=== PATIENT | male | born 1950 | race African-American/Black ===

== ENCOUNTER 2016-07-01 20:41 | Inpatient (IN) | payer MEDICARE, OTHER ==
[~2016-07-01] VITALS: Ht 198.1 cm; Wt 124.4 kg
[~2016-07-01 20:41] MED LIST: AMIO200 PO; DILT30 PO; FERR300S PO; FURO20 PO; HYDR-3535 PO; LABE200 PO; LEVEMIR SQ; METHO500 PO; NOVOLOGSS SQ; OXYB5 PO; PLAV75TA PO; POLY1.4%O EACH EYE; PROT40TA PO; WARF5 PO; ZOCO40TA PO
[2016-07-01 20:46] VITALS: BP 134/85; PULSE 93; RESP 16; TEMP 97.9; O2SAT 97
[2016-07-01] MEDS ORDERED: SODIUM CHLOR 0.9% 1000 ML INJ 1,000 ML IV SCH (21:00)
[2016-07-01 21:01] LABS: MEAN CORPUSCULAR HGB CONC 29.1 % (32.0-36.0)
[2016-07-01] MEDS ORDERED: ONDANSETRON HCL 4 MG/2 ML VIAL IV PUSH ONE (21:15)
[2016-07-01] MEDS ORDERED: PLAV75TA29 PO (21:31)
[2016-07-01] MEDS ORDERED: FURO1TAB60 PO (21:31)
[2016-07-01] MEDS ORDERED: GABA600T PO (21:31)
[2016-07-01] MEDS ORDERED: FURO1TAB62 PO (21:31)
[2016-07-01] MEDS ORDERED: WARF-21 PO (21:31)
[2016-07-01] MEDS ORDERED: ZOCO40TA PO (21:31)
[2016-07-01] MEDS ORDERED: CLON0.3T PO (21:31)
[2016-07-01] MEDS ORDERED: SIMVPOW (21:31)
[2016-07-01] MEDS ORDERED: TEMA30CA PO (21:31)
[2016-07-01] MEDS ORDERED: LEVEMIR SQ (21:34)
[2016-07-01] MEDS ORDERED: NOVOLOGP2 SQ (21:34)
[2016-07-01 21:39] LABS: APTT (PATIENT) 40.8 SEC (24.3-30.1); INTERNATIONAL NORMALIZED RATIO 4.2 RATIO
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
[2016-07-01 21:48] LABS: ANION GAP 10 MEQ/L (5-15); AST (GOT) 11 U/L (15-37); BICARBONATE 26.5 MEQ/L (21.0-32.0); BLOOD UREA NITROGEN 30 MG/DL (7-18); CHLORIDE 103 MEQ/L (98-107); GLOMERULAR FILTRATION RATE 44 ML/MIN (>89); POTASSIUM 3.8 MEQ/L (3.5-5.1); SODIUM (NA) 139 MEQ/L (136-145)
[2016-07-01 21:51] LABS: ALKALINE PHOSPHATASE 84 U/L (45-117); ALT (GPT) 17 U/L (12-78); TOTAL BILIRUBIN ADULT 0.5 MG/DL (0.2-1.0)
[2016-07-01] MEDS ORDERED: IOHEXOL 350 MG/ML 10 ML VIAL (for RAD DIAG) IV ONE (22:08)
[2016-07-01 22:24] LABS: MEAN CELL VOLUME 65.6 FL (80.0-100.0); MEAN CORPUSCULAR HEMOGLOBIN 19.1 PG (27.0-34.0); PLATELET COUNT 128 TH/MM3 (150-450); RED BLOOD COUNT 2.25 MIL/MM3 (4.50-5.90); RED CELL DISTRIBUTION WIDTH 25.5 % (11.6-17.2); WHITE BLOOD COUNT 7.3 TH/MM3 (4.0-11.0)
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
[2016-07-01 22:29] LABS: HEMATOCRIT 14.8 % (39.0-51.0); HEMO FLAGS AUTO DIFF
[2016-07-01] MEDS ORDERED: SODIUM CHLOR 0.9% 250 ML INJ 250 ML IV ONE (22:30)
[2016-07-01] MEDS ORDERED: PHYTONADIONE INJ 10 MG in DEXTROSE 5% IN WATER INJ 50 ML IV ONE ×2 (22:45)
[2016-07-01] MEDS ORDERED: TEMAZEPAM 15 MG CAP PO PRN (23:00)
[2016-07-01] MEDS ORDERED: NALOXONE HCL 0.4 MG/ML AMP IV PRN (23:00)
[2016-07-01] MEDS ORDERED: SODIUM CHLORIDE 0.9% FLUSH 5 ML FLUSH FLUSH PRN (23:00)
[2016-07-01] MEDS ORDERED: ONDANSETRON HCL 4 MG/2 ML VIAL IVP PRN (23:00)
[2016-07-01] MEDS: SODIUM CHLOR 0.45% 1000 ML INJ 1,000 ML IV SCH (23:19)
[2016-07-01] MEDS: PANTOPRAZOLE SODIUM 40 MG VIAL IV PUSH SCH (23:20)
[2016-07-01 23:37] LABS: BACTERIA, URINE RARE /hpf; BLOOD, URINE NEG (NEG); COMMENT (UR) CULT NOT INDICATED; CULTURE IF INDICATED CULT NOT INDICATED; GLUCOSE,URINE NEG (NEG); HYALINE CAST, URINE 1 /lpf (RARE); KETONE, URINE NEG (NEG); MUCUS URINE FEW /lpf (OCC); NITRITE,URINE NEG (NEG); PH, URINE 5.5 (5.0-8.5); URINE COLOR LIGHT-YELLOW (YELLW/STRAW)
[2016-07-01 23:38] VITALS: BP 142/80; PULSE 89; RESP 18; O2SAT 95
[2016-07-01 23:38] LABS: ACANTHOCYTES OCC (NORMAL); EOSINOPHILS 3 % (0-4); KERATOCYTES OCC (NORMAL); NEUTROPHIL # MANUAL DIFF 5.9 TH/MM3 (1.8-7.7); OVALOCYTES 1+ (NORMAL); PLATELET ESTIMATE SMEAR LOW (NORMAL); PLATELET MORPHOLOGY NORMAL (NORMAL); POLYS (SEG NEUTROPHILS) 81 % (16-70); SCAN/DIFF FINAL DIFF MANUAL; WBC DIFF SAMPLE 100
[2016-07-02] VITALS (25 sets, daily range): BP systolic 112–181; BP diastolic 60–94; PULSE 72–92; RESP 18–20; TEMP 98–98.5; O2SAT 94–100
[2016-07-02] MEDS ORDERED: cloNIDine HCL 0.3 MG TAB PO SCH (06:00)
[2016-07-02 06:31] LABS: BASOPHIL # 0.1 TH/MM3 (0-0.2); BASOPHIL % 0.7 % (0.0-2.0); EOSINOPHIL # 0.1 TH/MM3 (0-0.4); EOSINOPHIL % 0.9 % (0.0-4.0); LYMPH % 17.4 % (9.0-44.0); LYMPHOCYTE # 1.5 TH/MM3 (1.0-4.8); MEAN CORPUSCULAR HEMOGLOBIN 21.7 PG (27.0-34.0); MEAN CORPUSCULAR HGB CONC 31.4 % (32.0-36.0); MONO % 10.4 % (0.0-8.0); NEUT % 70.6 % (16.0-70.0); PLATELET COUNT 112 TH/MM3 (150-450); RED BLOOD COUNT 2.59 MIL/MM3 (4.50-5.90); RED CELL DISTRIBUTION WIDTH 26.1 % (11.6-17.2); WHITE BLOOD COUNT 8.5 TH/MM3 (4.0-11.0)
[2016-07-02 06:34] LABS: HEMO FLAGS AUTO DIFF
[2016-07-02 06:36] LABS: HEMATOCRIT 17.9 % (39.0-51.0)
[2016-07-02 06:45] LABS: INTERNATIONAL NORMALIZED RATIO 1.5 RATIO; PROTHROMBIN TIME - PATIENT 16.7 SEC (9.8-11.6)
[2016-07-02 06:58] LABS: BICARBONATE 28.1 MEQ/L (21.0-32.0); MAGNESIUM 2.1 MG/DL (1.5-2.5); POTASSIUM 3.8 MEQ/L (3.5-5.1)
[2016-07-02] MEDS ORDERED: SODIUM CHLOR 0.9% 250 ML INJ 250 ML IV ONE (07:15)
[2016-07-02 08:15] LABS: ACANTHOCYTES OCC (NORMAL)
[2016-07-02 08:16] LABS: OVALOCYTES 1+ (NORMAL)
[2016-07-02 08:17] LABS: PLATELET ESTIMATE SMEAR LOW (NORMAL); PLATELET MORPHOLOGY ENLARGED (NORMAL); SCAN/DIFF AUTO DIFF CONFIRMED
[2016-07-02] MEDS ORDERED: GABAPENTIN 300 MG CAP PO SCH (09:00)
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
[2016-07-02] MEDS: PANTOPRAZOLE SODIUM 40 MG VIAL IV PUSH SCH ×2 (09:29→21:40)
[2016-07-02] MEDS: cloNIDine HCL 0.2 MG TAB PO SCH ×3 (09:29→18:15)
[2016-07-02] MEDS: PRAVASTATIN SOD 80 MG TAB PO SCH (09:30)
[2016-07-02] MEDS: GABAPENTIN 300 MG CAP PO SCH ×3 (09:30→18:15)
[2016-07-02] MEDS: SODIUM CHLORIDE 0.9% FLUSH 5 ML FLUSH FLUSH SCH ×2 (09:58→21:39)
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
[2016-07-02] MEDS: SODIUM CHLOR 0.45% 1000 ML INJ 1,000 ML IV SCH ×2 (11:35→21:40)
[2016-07-03] VITALS (7 sets, daily range): BP systolic 117–155; BP diastolic 65–96; PULSE 78–88; RESP 16–22; TEMP 97.3–98.8; O2SAT 88–98
[2016-07-03] MEDS: PANTOPRAZOLE SODIUM 40 MG VIAL IV PUSH SCH ×2 (07:29→21:20)
[2016-07-03] MEDS: GABAPENTIN 300 MG CAP PO SCH ×3 (07:29→17:26)
[2016-07-03] MEDS: SODIUM CHLORIDE 0.9% FLUSH 5 ML FLUSH FLUSH SCH ×2 (07:30→21:21)
[2016-07-03] MEDS: PRAVASTATIN SOD 80 MG TAB PO SCH (07:30)
[2016-07-03] MEDS: cloNIDine HCL 0.2 MG TAB PO SCH ×3 (07:30→17:28)
[2016-07-03] MEDS: SODIUM CHLOR 0.45% 1000 ML INJ 1,000 ML IV SCH (09:37)
--- NOTE | 2016-07-03 13:54 | HHI.GIFU ---
Subjective Remarks Patient is resting in bed, doing good, no pain, no signs of bleeding, inquiring about food. (Claudia Denis) Objective Vitals I&O Vital Signs Date Time Temp Pulse Resp B/P Pulse Ox O2 Delivery O2 Flow Rate FiO2 07/03/16 11:50 97.6 80 20 126/83 96 07/03/16 07:40 98.1 85 16 129/69 88 07/03/16 04:00 97.5 78 17 117/65 94 07/03/16 00:00 97.9 79 17 127/83 96 07/02/16 21:45 76 07/02/16 21:45 98.2 77 18 112/70 100 07/02/16 18:16 81 20 155/94 94 07/02/16 14:11 87 20 142/88 I/O 07/02/16 07/02/16 07/02/16 07/03/16 07/03/16 07/03/16 07:00 15:00 23:00 07:00 15:00 23:00 Intake Total 1425 ml 240 ml 240 ml Output Total 850 ml Balance 1425 ml 240 ml -610 ml Intake Oral 240 ml 240 ml Blood Product 725 ml Packed Cells 700 ml Output Urine Total 850 ml # Voids 1 Laboratory Laboratory Tests Test 07/03/16 04:58 Tumor Marker Alpha Fetoprotein 2.9 Imaging Last Impressions Abdomen/Pelvis CT 07/01/16 0000 Signed Impressions: Service Date/Time: June 22:00 - CONCLUSION: 1. Low density mass in the supriya hepatis, not new but is slightly larger. It has a very benign appearance. Potentially this is a duodenal diverticulum. Pancreatic pseudocyst possible but considered less likely. An exophytic cyst arising from the liver would be possible. 2. Cholelithiasis without evidence of acute complication. 3. 4.8 cm low-density lesion of the spleen is stable, remains nonspecific but is most likely benign. 4. No obstruction or acute inflammatory changes are demonstrated. 5. Mild wall thickening of the urinary bladder, correlate with possible mild acute cystitis. Giovanny Echavarria MD Physical Exam HEENT: normocephalic; atraumatic; no jaundice. Throat is clear. NECK: Neck is supple, no JVD, no lymphadenopathy. CHEST: Chest is clear to auscultation and percussion. CARDIAC: Regular rate and rhythm with no murmur gallop or rubs. ABDOMEN: Soft, nondistended, obese, nontender; no hepatosplenomegaly; bowel sounds are present in all four quadrants. EXTREMITIES: No clubbing, cyanosis, or edema. SKIN: Normal; no rash; no jaundice. FOOT ROENTGENOLOGIST: No focal deficits; alert and oriented times three. (CiraClaudia ASSEMBLY ADJUSTER) Assessment and Plan Plan - Anemia with Hemoccult (+) stool. severe anemia of 4.3, INR of 4.2. He received 4 units of blood and 2 units of FFP, repeat h&h pending INR now is 1.5,. Patient denies any sings of bleeding. Denies hematemesis, abdomen pain, melena or hematochezia. CT on (07/01/16)1. Low density mass in the supriya hepatis, not new but is slightly larger. It has a very benign appearance. Potentially this is a duodenal diverticulum. Pancreatic pseudocyst possible but considered less likely. An exophytic cyst arising from the liver would be possible. 2. Cholelithiasis without evidence of acute complication. 3. 4.8 cm low- density lesion of the spleen is stable, remains nonspecific but is most likely benign. 4. No obstruction or acute inflammatory changes are demonstrated. 5. Mild wall thickening of the urinary bladder, correlate with possible mild acute cystitis. Patient has a known history of anemia, he was seen by our services last year S/P EGD/Colonoscopy (09/23/15)----> [place] Class B esophagitis, retroflexed views revealed retained food in the stomach; colonic mucosa appeared normal, retroflexed views revealed medium internal hemorrhoids. - Nausea and vomiting- LFTs, lipase normal, Ct as above - Supratherapeutic INR of 4.2- corrected s/p 2 FFP, inr 1.5 - Low density mass in the supriya hepatis, not new but is slightly larger. CT above, AFP normal - ?Pancreatic pseudocyst- as imaging above - Possible cystitis- per attending - Cauda equina syndrome with lumbar stenosis and bilateral L4 nerve root impingement per nsx - Acute on chronic kidney disease. - Afib, Bilateral lower extremity DVTs, IVC filter in place. Coumadin, Plavix - HTN, DM per primary. PLAN: - heart healthy diet - EGD/colonoscopy on Tuesday - Obtain consents - Clear liquids tomorrow - Golytely tomorrow - Npo Tuesday mn - Cont. to hold anticoagulation - Consider repeat Ct in 2 weeks for f/u on liver and pancreas findings - Cont. PPI - Monitor HH - Transfuse as needed to keep hgb >7 - Pt seen and examined by Dr. Joya and myself and this note is written on his behalf (Claudia Denis) Physician Comments Seen and examined with ADRIAN, no bleeding reported. Egd/colonoscopy on tuesday. Monitor labs. (Christiane Joya MD) Claudia Denis Jul 03, 2016 13:54 Christiane Joya MD Jul 03, 2016 14:15
[2016-07-03 16:01] LABS: HEMATOCRIT 22.7 % (39.0-51.0); MEAN CELL VOLUME 72.4 FL (80.0-100.0); MEAN CORPUSCULAR HEMOGLOBIN 22.8 PG (27.0-34.0); MEAN CORPUSCULAR HGB CONC 31.5 % (32.0-36.0); PLATELET COUNT 117 TH/MM3 (150-450); RED BLOOD COUNT 3.14 MIL/MM3 (4.50-5.90); RED CELL DISTRIBUTION WIDTH 27.1 % (11.6-17.2); WHITE BLOOD COUNT 8.9 TH/MM3 (4.0-11.0)
[2016-07-03 16:05] LABS: REVIEW FLAG FINAL
[2016-07-03] MEDS: FUROSEMIDE 20 MG TAB PO SCH (17:26)
--- NOTE | 2016-07-03 19:35 | HHI.PR ---
Subjective Remarks 65yr old male seen and examined today. Feels more energetic: s/p transfusion 4units PRBC and 2 units FFP. Denies any CP/SOB/NVD/bleeding. Objective Objective Results - Vital Signs Date Time Temp Pulse Resp B/P Pulse Ox O2 Delivery O2 Flow Rate FiO2 07/03/16 11:50 97.6 80 20 126/83 96 07/03/16 07:40 98.1 85 16 129/69 88 07/03/16 04:00 97.5 78 17 117/65 94 07/03/16 00:00 97.9 79 17 127/83 96 07/02/16 21:45 76 07/02/16 21:45 98.2 77 18 112/70 100 I/O 07/02/16 07/02/16 07/02/16 07/03/16 07/03/16 07/03/16 07:00 15:00 23:00 07:00 15:00 23:00 Intake Total 1425 ml 240 ml 240 ml 778 ml Output Total 850 ml Balance 1425 ml 240 ml -610 ml 778 ml Intake Oral 240 ml 240 ml IV Total 778 ml Blood Product 725 ml Packed Cells 700 ml Output Urine Total 850 ml # Voids 1 Result Diagram: 07/03/16 1542 07/02/16 0618 Other Results Laboratory Tests Test 07/03/16 07/03/16 04:58 15:42 Tumor Marker Alpha Fetoprotein 2.9 White Blood Count 8.9 Red Blood Count 3.14 Hemoglobin 7.2 Hematocrit 22.7 Mean Corpuscular Volume 72.4 Mean Corpuscular Hemoglobin 22.8 Mean Corpuscular Hemoglobin 31.5 Concent Red Cell Distribution Width 27.1 Platelet Count 117 Mean Platelet Volume 8.5 ROS General: No: Fatigue, Weakness, Other HEENT: No: Sore Throat, Dysphagia, Other Cardiac: No: Chest Pain, Edema, Palpitations, Other Pulmonary: No: Cough, SOB, Wheezing, Other GI: No: Abdominal Pain, BM, Diarrhea, N/V, 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 He is alert and awake. HEAD: Normocephalic without any lesion or mass noted. . EYES: Perrla, Normal eye movement, No icterus. OROPHARYNGEAL: Oropharynx without erythema or edema. MOUTH/THROAT: Buccal mucosa is moist. NECK: Supple. CARDIAC: Regular rhythm, regular rate, S1 and S2 are heard. LUNGS: Clear to auscultation bilaterally. ABDOMEN: Soft, nontender, no organomegaly or masses. Bowel sounds are heard in all four quadrants. No rebound. No guarding. EXTREMITIES: No edema. NEUROLOGICAL: No focal deficits. SKIN:Warm and moist PSYCH: Mood and affect appropriate A/P Assessment and Plan Assessment: Severe anemia: +hemoccult, Hb: 4.3 Recent excessive use of NASAIDs supratherapeutic INR: 4.2 Nausea and vomiting- LFTs, lipase normal, Ct as above ?Pancreatic pseudocyst-per CT Possible cystitis Cholelithiasis per CT: asymptomatic. Cauda equina syndrome with lumbar stenosis and bilateral L4 nerve root impingement per nsx Acute on chronic kidney disease. Afib, Bilateral lower extremity DVTs, IVC filter in place. Coumadin, Plavix HTN, DM Plan: S/p transfusion 4 units of PRBC. Transfuse prn to Keep Hb >7.0 S/p transfusion of 2units of FFP. INR: 1.5: monitor. appreciate GI input. Plan for EGD/colonoscopy on tuesday, clear liquid diet tomorrow. NPO from midnight. Reviewed CT abd report. Asymptomatic cholelithiasis. Cont. to hold anticoagulation AFP Consider repeat Ct in 2 weeks for f/u on liver and pancreas findings Cont. PPI Monitor HH Start rocephin 1gm iv daily for cystitis. AM labs, discussed with pt/RN. Manoj Contreras MD Jul 03, 2016 19:35
[2016-07-03] MEDS: TEMAZEPAM 15 MG CAP PO PRN (21:20)
[2016-07-03] MEDS: cefTRIAXone INJ 1,000 MG in SODIUM CHLORIDE 0.9% INJ 100 ML IV SCH (21:20)
[2016-07-04 04:20] VITALS: BP 140/79; PULSE 85; RESP 20; TEMP 97; O2SAT 100
[2016-07-04 06:30] LABS: AUTOMATED NEUTROPHIL # 7.5 TH/MM3 (1.8-7.7); BASOPHIL # 0.1 TH/MM3 (0-0.2); BASOPHIL % 1.2 % (0.0-2.0); EOSINOPHIL # 0.3 TH/MM3 (0-0.4); EOSINOPHIL % 2.8 % (0.0-4.0); HEMATOCRIT 23.2 % (39.0-51.0); LYMPH % 9.8 % (9.0-44.0); MEAN CORPUSCULAR HGB CONC 31.5 % (32.0-36.0); MONO % 11.9 % (0.0-8.0); NEUT % 74.3 % (16.0-70.0); PLATELET COUNT 117 TH/MM3 (150-450); RED BLOOD COUNT 3.18 MIL/MM3 (4.50-5.90); RED CELL DISTRIBUTION WIDTH 27.8 % (11.6-17.2); WHITE BLOOD COUNT 10.1 TH/MM3 (4.0-11.0)
[2016-07-04 06:33] LABS: HEMO FLAGS AUTO DIFF
[2016-07-04 06:43] LABS: BICARBONATE 26.8 MEQ/L (21.0-32.0); POTASSIUM 3.6 MEQ/L (3.5-5.1)
[2016-07-04] MEDS: PRAVASTATIN SOD 80 MG TAB PO SCH (07:29)
[2016-07-04] MEDS: FUROSEMIDE 20 MG TAB PO SCH ×2 (07:29→17:02)
[2016-07-04] MEDS: GABAPENTIN 300 MG CAP PO SCH ×3 (07:29→17:02)
[2016-07-04] MEDS: cloNIDine HCL 0.2 MG TAB PO SCH ×3 (07:29→17:02)
[2016-07-04] MEDS: SODIUM CHLOR 0.45% 1000 ML INJ 1,000 ML IV SCH (07:30)
[2016-07-04] MEDS: SODIUM CHLORIDE 0.9% FLUSH 5 ML FLUSH FLUSH SCH ×2 (07:30→21:00)
[2016-07-04] MEDS: PANTOPRAZOLE SODIUM 40 MG VIAL IV PUSH SCH ×2 (07:30→21:37)
[2016-07-04 08:00] VITALS: BP 127/74; PULSE 83; RESP 18; TEMP 98.3; O2SAT 91
[2016-07-04 09:57] LABS: OVALOCYTES 1+ (NORMAL); POLYCHROMASIA 2.1 % (0.0-1.9)
[2016-07-04 09:58] LABS: PLATELET ESTIMATE SMEAR LOW (NORMAL); PLATELET MORPHOLOGY NORMAL (NORMAL); SCAN/DIFF AUTO DIFF CONFIRMED; TEARDROP RBCS 1+ (NORMAL)
--- NOTE | 2016-07-04 11:38 | HHI.GIFU ---
Subjective Remarks 65 yo male lying in bed in no apparent distress. Denies abdominal pain, no nausea. (Radha Medina) Objective Vitals I&O Vital Signs Date Time Temp Pulse Resp B/P Pulse Ox O2 Delivery O2 Flow Rate FiO2 07/04/16 08:00 98.3 83 18 127/74 91 07/04/16 04:20 97.0 85 20 140/79 100 07/03/16 23:59 98.8 86 22 133/96 96 07/03/16 20:28 98.6 88 20 133/84 98 07/03/16 15:50 97.3 80 20 155/96 96 07/03/16 11:50 97.6 80 20 126/83 96 I/O 07/03/16 07/03/16 07/03/16 07/04/16 07/04/16 07/04/16 07:00 15:00 23:00 07:00 15:00 23:00 Intake Total 240 ml 450 ml 1018 ml 240 ml Output Total 850 ml 1050 ml 600 ml 1300 ml Balance -610 ml -600 ml 418 ml -1060 ml Intake Oral 240 ml 450 ml 240 ml 240 ml IV Total 778 ml Output Urine Total 850 ml 1050 ml 600 ml 1300 ml # Voids 0 # Bowel Movements 0 0 Laboratory Laboratory Tests Test 07/03/16 07/04/16 15:42 05:31 White Blood Count 8.9 10.1 Red Blood Count 3.14 3.18 Hemoglobin 7.2 7.3 Hematocrit 22.7 23.2 Mean Corpuscular Volume 72.4 73.0 Mean Corpuscular Hemoglobin 22.8 23.0 Mean Corpuscular Hemoglobin 31.5 31.5 Concent Red Cell Distribution Width 27.1 27.8 Platelet Count 117 117 Mean Platelet Volume 8.5 8.9 Neutrophils (%) (Auto) 74.3 Lymphocytes (%) (Auto) 9.8 Monocytes (%) (Auto) 11.9 Eosinophils (%) (Auto) 2.8 Basophils (%) (Auto) 1.2 Neutrophils # (Auto) 7.5 Lymphocytes # (Auto) 1.0 Monocytes # (Auto) 1.2 Eosinophils # (Auto) 0.3 Basophils # (Auto) 0.1 CBC Comment AUTO DIFF Differential Comment AUTO DIFF CONFIRMED Platelet Estimate LOW Platelet Morphology Comment NORMAL Polychromasia 2.1 Tear Drop Cells 1+ Ovalocytes 1+ Sodium Level 140 Potassium Level 3.6 Chloride Level 103 Carbon Dioxide Level 26.8 Anion Gap 10 Blood Urea Nitrogen 18 Creatinine 1.46 Estimat Glomerular Filtration 58 Rate Random Glucose 214 Calcium Level 8.5 Imaging Last Impressions Abdomen/Pelvis CT 07/01/16 0000 Signed Impressions: Service Date/Time: June 22:00 - CONCLUSION: 1. Low density mass in the supriya hepatis, not new but is slightly larger. It has a very benign appearance. Potentially this is a duodenal diverticulum. Pancreatic pseudocyst possible but considered less likely. An exophytic cyst arising from the liver would be possible. 2. Cholelithiasis without evidence of acute complication. 3. 4.8 cm low-density lesion of the spleen is stable, remains nonspecific but is most likely benign. 4. No obstruction or acute inflammatory changes are demonstrated. 5. Mild wall thickening of the urinary bladder, correlate with possible mild acute cystitis. Giovanny Echavarria MD Physical Exam HEENT: PERRLA. Normocephalic; atraumatic; no jaundice. NECK: Neck is supple, no JVD, no lymphadenopathy. CHEST: CTA. CARDIAC: RRR with no murmur gallop or rubs. ABDOMEN: Soft, nondistended, obese, nontender; no hepatosplenomegaly; bowel sounds x 4 quadrants. EXTREMITIES: No clubbing, cyanosis, or edema. SKIN: Normal; no rash; no jaundice. MOBILE PRACTICE LEAD: No focal deficits; A&Ox3. (Radha Medina) Assessment and Plan Plan - Anemia with Hemoccult (+) stool. Had severe anemia of 4.3, INR of 4.2. He received 4 units of blood and 2 units of FFP. Today H/H stable, 7.3/23.2. Patient denies any sings of bleeding. Denies hematemesis, abdomen pain, melena or hematochezia. CT on (07/01/16)-->1. Low density mass in the supriya hepatis, not new but is slightly larger. t has a very benign appearance. Potentially this is a duodenal diverticulum. Pancreatic pseudocyst possible but considered less likely. An exophytic cyst arising from the liver would be possible. 2. Cholelithiasis without evidence of acute complication. 3. 4.8 cm low-density lesion of the spleen is stable, remains nonspecific but is most likely benign. 4. No obstruction or acute inflammatory changes are demonstrated. 5. Mild wall thickening of the urinary bladder, correlate with possible mild acute cystitis. Patient has a known history of anemia, he was seen by our services last year S/P EGD/Colonoscopy (09/23/15)----> LA Class B esophagitis, retroflexed views revealed retained food in the stomach; colonic mucosa appeared normal, retroflexed views revealed medium internal hemorrhoids. - Nausea and vomiting- LFTs, lipase normal, CT as above - Supratherapeutic INR of 4.2- corrected s/p 2 FFP, INR 1.5 - Low density mass in the supriya hepatis, not new but is slightly larger. CT above, AFP normal - ?Pancreatic pseudocyst- as imaging above - Possible cystitis- per attending - Cauda equina syndrome with lumbar stenosis and bilateral L4 nerve root impingement per nsx - Acute on chronic kidney disease. - Afib, Bilateral lower extremity DVTs, IVC filter in place. Coumadin, Plavix - HTN, DM per primary. PLAN: - EGD/colonoscopy on Tuesday - Obtain consents - Clear liquids today - Golytely today - NPO today at [place] - Cont. to hold anticoagulation - Consider repeat CT in 2 weeks for f/u on liver and pancreas findings - Cont. PPI - Monitor HH - Transfuse as needed to keep hgb >7 - Further recommendations to follow based on results of above. Pt seen and examined by Dr. Joya and myself and this note is written on his behalf (Radha Medina) Physician Comments Seen and examined with ADRIAN, no active bleeding , hb hovering around 7. EGD/ Colonoscopy tomorrow. (Christiane Joya MD) Radha Medina Jul 04, 2016 11:37 Christiane Joya MD Jul 04, 2016 15:08
--- NOTE | 2016-07-04 11:39 | HHI.PR ---
Subjective Remarks 65yr old male seen and examined today. S/p transfusion 4units PRBC and 2 units FFP. Denies any CP/SOB/NVD/bleeding. Objective Objective Results - Vital Signs Date Time Temp Pulse Resp B/P Pulse Ox O2 Delivery O2 Flow Rate FiO2 07/04/16 08:00 98.3 83 18 127/74 91 07/04/16 04:20 97.0 85 20 140/79 100 07/03/16 23:59 98.8 86 22 133/96 96 07/03/16 20:28 98.6 88 20 133/84 98 07/03/16 15:50 97.3 80 20 155/96 96 07/03/16 11:50 97.6 80 20 126/83 96 I/O 07/03/16 07/03/16 07/03/16 07/04/16 07/04/16 07/04/16 07:00 15:00 23:00 07:00 15:00 23:00 Intake Total 240 ml 450 ml 1018 ml 240 ml Output Total 850 ml 1050 ml 600 ml 1300 ml Balance -610 ml -600 ml 418 ml -1060 ml Intake Oral 240 ml 450 ml 240 ml 240 ml IV Total 778 ml Output Urine Total 850 ml 1050 ml 600 ml 1300 ml # Voids 0 # Bowel Movements 0 0 Result Diagram: 07/04/1631 07/04/1631 Other Results Laboratory Tests Test 07/03/16 07/04/16 15:42 05:31 White Blood Count 8.9 10.1 Red Blood Count 3.14 3.18 Hemoglobin 7.2 7.3 Hematocrit 22.7 23.2 Mean Corpuscular Volume 72.4 73.0 Mean Corpuscular Hemoglobin 22.8 23.0 Mean Corpuscular Hemoglobin 31.5 31.5 Concent Red Cell Distribution Width 27.1 27.8 Platelet Count 117 117 Mean Platelet Volume 8.5 8.9 Neutrophils (%) (Auto) 74.3 Lymphocytes (%) (Auto) 9.8 Monocytes (%) (Auto) 11.9 Eosinophils (%) (Auto) 2.8 Basophils (%) (Auto) 1.2 Neutrophils # (Auto) 7.5 Lymphocytes # (Auto) 1.0 Monocytes # (Auto) 1.2 Eosinophils # (Auto) 0.3 Basophils # (Auto) 0.1 CBC Comment AUTO DIFF Differential Comment AUTO DIFF CONFIRMED Platelet Estimate LOW Platelet Morphology Comment NORMAL Polychromasia 2.1 Tear Drop Cells 1+ Ovalocytes 1+ Sodium Level 140 Potassium Level 3.6 Chloride Level 103 Carbon Dioxide Level 26.8 Anion Gap 10 Blood Urea Nitrogen 18 Creatinine 1.46 Estimat Glomerular Filtration 58 Rate Random Glucose 214 Calcium Level 8.5 ROS General: No: Fatigue, Weakness, Other HEENT: No: Sore Throat, Dysphagia, Other Cardiac: No: Chest Pain, Edema, Palpitations, Other Pulmonary: No: Cough, SOB, Wheezing, Other GI: No: Abdominal Pain, BM, Diarrhea, N/V, 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 He is alert and awake. HEAD: Normocephalic without any lesion or mass noted. . EYES: Perrla, Normal eye movement, No icterus. OROPHARYNGEAL: Oropharynx without erythema or edema. MOUTH/THROAT: Buccal mucosa is moist. NECK: Supple. CARDIAC: Regular rhythm, regular rate, S1 and S2 are heard. LUNGS: Clear to auscultation bilaterally. ABDOMEN: Soft, nontender, no organomegaly or masses. Bowel sounds are heard in all four quadrants. No rebound. No guarding. EXTREMITIES: No edema. NEUROLOGICAL: No focal deficits. SKIN:Warm and moist PSYCH: Mood and affect appropriate A/P Assessment and Plan Assessment: Severe anemia: +hemoccult, Hb: 4.3 Recent excessive use of NASAIDs supratherapeutic INR: 4.2 Nausea and vomiting- LFTs, lipase normal, Ct as above ?Pancreatic pseudocyst-per CT Possible cystitis Cholelithiasis per CT: asymptomatic. Cauda equina syndrome with lumbar stenosis and bilateral L4 nerve root impingement per nsx Acute on chronic kidney disease. Afib, Bilateral lower extremity DVTs, IVC filter in place. Coumadin, Plavix HTN, DM Plan: S/p transfusion 4 units of PRBC. Transfuse prn to Keep Hb >7.0 S/p transfusion of 2units of FFP. INR: 1.5: monitor. appreciate GI input. Plan for EGD/colonoscopy on tuesday, clear liquid diet tomorrow. NPO from midnight. Reviewed CT abd report. Asymptomatic cholelithiasis. Cont. to hold anticoagulation AFP Consider repeat Ct in 2 weeks for f/u on liver and pancreas findings Cont. PPI Monitor HH Start rocephin 1gm iv daily for cystitis. Accucheks qac/hs Start SSI. Monitor glucose. AM labs, discussed with pt/RN. Manoj Contreras MD Jul 04, 2016 11:39
[2016-07-04] MEDS ORDERED: DEXTROSE 50% IN WATER 50 ML VIAL(D50) IV PUSH PRN (11:45)
[2016-07-04] MEDS ORDERED: GLUCAGON 1 MG/ML VIAL OTHER PRN (11:45)
[2016-07-04 12:00] VITALS: BP 136/90; PULSE 86; RESP 16; TEMP 96.8; O2SAT 97
[2016-07-04 16:00] VITALS: BP 137/73; PULSE 78; RESP 16; TEMP 96.9; O2SAT 92
[2016-07-04] MEDS ORDERED: PEG (High)/E-LYTE SOLN 4000 ML BTL PO ONE (16:00)
[2016-07-04] MEDS: INSULIN NovoLIN REGULAR SUPPLEMENTAL SCALE SQ SCH ×2 (17:09→21:00)
[2016-07-04 20:00] VITALS: BP 138/75; PULSE 81; RESP 17; TEMP 98.1; O2SAT 96
[2016-07-04] MEDS: cefTRIAXone INJ 1,000 MG in SODIUM CHLORIDE 0.9% INJ 100 ML IV SCH (21:36)
[2016-07-04 22:00] VITALS: PULSE 87
[2016-07-05] VITALS: BP 167/94; PULSE 100; RESP 20; TEMP 97.8; O2SAT 95
[2016-07-05 04:00] VITALS: BP 120/67; PULSE 82; RESP 17; TEMP 97.6; O2SAT 95
[2016-07-05] MEDS: INSULIN NovoLIN REGULAR SUPPLEMENTAL SCALE SQ SCH ×4 (05:37→21:52)
[2016-07-05 06:51] LABS: MEAN CELL VOLUME 73.9 FL (80.0-100.0); MEAN CORPUSCULAR HGB CONC 31.1 % (32.0-36.0); PLATELET COUNT 123 TH/MM3 (150-450); RED BLOOD COUNT 3.25 MIL/MM3 (4.50-5.90); RED CELL DISTRIBUTION WIDTH 27.7 % (11.6-17.2); WHITE BLOOD COUNT 9.3 TH/MM3 (4.0-11.0)
[2016-07-05 06:56] LABS: REVIEW FLAG FINAL
[2016-07-05 07:06] LABS: INTERNATIONAL NORMALIZED RATIO 1.1 RATIO; PROTHROMBIN TIME - PATIENT 12.4 SEC (9.8-11.6)
[2016-07-05 08:00] VITALS: BP 159/79; PULSE 82; RESP 20; TEMP 97.4; O2SAT 95
[2016-07-05] MEDS: GABAPENTIN 300 MG CAP PO SCH ×3 (09:00→17:05)
[2016-07-05] MEDS: FUROSEMIDE 20 MG TAB PO SCH ×2 (09:00→17:04)
[2016-07-05] MEDS: cloNIDine HCL 0.2 MG TAB PO SCH ×3 (10:38→17:04)
[2016-07-05] MEDS: PANTOPRAZOLE SODIUM 40 MG VIAL IV PUSH SCH ×2 (10:38→21:52)
[2016-07-05] MEDS: SODIUM CHLORIDE 0.9% FLUSH 5 ML FLUSH FLUSH SCH ×2 (10:39→21:52)
[2016-07-05] MEDS: SODIUM CHLOR 0.45% 1000 ML INJ 1,000 ML IV SCH (10:45)
[2016-07-05 12:00] VITALS: BP 121/75; PULSE 76; RESP 20; TEMP 97.8; O2SAT 95
[2016-07-05] MEDS ORDERED: PROPOFOL 200 MG/20 ML AMP IV ONE (12:22)
--- NOTE | 2016-07-05 12:50 | GIPROC ---
[facility] [address] [facility]. [facility], [address] EGD PROCEDURE REPORT EXAM DATE: 07/05/2016 PATIENT NAME: Hao Castillo MR #: [id number] BIRTHDATE: 1950 ATTENDING: Christiane Joya MD ORDER #: [id number] DOWNSTREAM BIOMANUFACTURING TECHNICIAN: Zuleyka Estrella and Judy Marino STATUS: inpatient INDICATIONS: The patient is a 65 yr old male here for an EGD due to iron deficiency anemia PROCEDURE PERFORMED: EGD, diagnostic MEDICATIONS: None and Per Anesthesia. TOPICAL ANESTHETIC: CONSENT: The patient understands the risks and benefits of the procedure and understands that these risks include, but are not limited to: sedation, allergic reaction, infection, perforation and/or bleeding. Alternative means of evaluation and treatment include, among others: physical exam, x-rays, and/or surgical intervention. The patient elects to proceed with this endoscopic procedure. medical equipment was checked for proper function. Hand hygiene and appropriate measures for infection prevention was taken. After the risks, benefits and alternatives of the procedure were thoroughly explained, Informed consent was verified, confirmed and timeout was successfully executed by the treatment team. The patient was anesthetized with topical anesthesia and the Pentax [id number] endoscope was introduced through the mouth and advanced to the second portion of the duodenum. Retroflexed views revealed no abnormalities The gastroscope was then slowly withdrawn and removed. ESOPHAGUS: There was LA Class A esophagitis noted. STOMACH: There was mild gastritis in the gastric antrum. ADVERSE EVENTS: There were no complications. IMPRESSIONS: 1. There was LA Class A esophagitis noted 2. There was mild gastritis in the gastric antrum 3. Retroflexed views revealed no abnormalities RECOMMENDATIONS: 1. Anti-reflux regimen 2. Continue PPI PATIENT CONDITION: stable DISPOSITION: Inpatient REPEAT EXAM: Return 3 years EGD Christiane Joya MD eSigned: Christiane Joya MD 07/05/2016 12:49 PM cc: [id number]
--- NOTE | 2016-07-05 12:52 | GIPROC ---
[facility] [address] [facility]. [facility], [address] COLONOSCOPY PROCEDURE REPORT EXAM DATE: 07/05/2016 PATIENT NAME: Hao Castillo MR #: [id number] BIRTHDATE: 1950 ENDOSCOPIST: Christiane Joya MD ORDER #: [id number] CENTRAL STERILIZATION TECHNICIAN: Zuleyka Estrella and Judy Marino STATUS: inpatient INDICATIONS: The patient is a 65 yr old male here for a colonoscopy due to iron deficiency anemia PROCEDURE PERFORMED: Colonoscopy, diagnostic MEDICATIONS: None and Per Anesthesia. PREP QUALITY: The [place] Bowel Prep Score was Right colon 1, Mid colon 2, and Left colon 2. Total = 5. PREP TYPE:GoLytely ESTIMATED BLOOD LOSS: None CONSENT: The patient understands the risks and benefits of the procedure and understands that these risks include, but are not limited to: sedation, allergic reaction, infection, perforation and/or bleeding. Alternative means of evaluation and treatment include, among others: physical exam, x-rays, and/or surgical intervention. The patient elects to proceed with this endoscopic procedure. medical equipment was checked for proper function. Hand hygiene and appropriate measures for infection prevention was taken. After the risks, benefits and alternatives of the procedure were thoroughly explained, Informed consent was verified, confirmed and timeout was successfully executed by the treatment team. A digital exam revealed external hemorrhoids The Pentax [id number] endoscope was introduced through the anus and advanced to the cecum, which was identified by both the appendix and ileocecal valve. The instrument was then slowly withdrawn as the colon was fully examined. COLON FINDINGS: Moderate diverticulosis was noted in the sigmoid colon. Retroflexed views revealed internal hemorrhoids and Retroflexed views revealed small internal hemorrhoids The scope was then completely withdrawn from the patient and the procedure terminated. PROCEDURE WITHDRAWAL TIME:9minutes ADVERSE EVENTS: There were no complications. IMPRESSIONS: 1. Moderate diverticulosis was noted in the sigmoid colon 2. Retroflexed views revealed internal hemorrhoids 3. Retroflexed views revealed small internal hemorrhoids 4. Revealed external hemorrhoids RECOMMENDATIONS: 1. Benefiber 2 tsp daily 2. Continue surveillance 3. Yearly hemoccult 4. No seeds, nuts and popcorn in diet 5. Xray for Small bowel follow through RECALL: Return 3 years Colonoscopy Christiane Joya MD eSigned: Christiane Joya MD 07/05/2016 12:52 PM cc: PATIENT NAME: Hao Castillo MR#: [id number]
--- NOTE | 2016-07-05 15:42 | EKG ---
Date Performed: 07/04/2016 Time Performed: 13:43:28 PTAGE: 65 years EKG: Sinus rhythm WITH FIRST DEGREE AV BLOCK MARKED LEFT AXIS DEVIATION MODERATE INTRAVENTRICULAR CONDUCTION DELAY ABN ORMAL ECG Compared to the PREVIOUS TRACING , the atrial fibrillation with rapid v. response has resolved. The nons pecific ST T wave changes have resolved PREVIOUS TRACIN09/05/2015 08.21 DOCTOR: Juany Paredes Interpretating Date/Time 07/05/2016 15:41:29
[2016-07-05 16:20] VITALS: BP_SYST 155; BP_SYST 192; BP_DIAS 102; BP_DIAS 103; PULSE 79; RESP 20; TEMP 96.6; O2SAT 99
--- NOTE | 2016-07-05 17:19 | HHI.PR ---
Subjective History of Present Illness pt is seen & Examined chart Reviewed I am ok No N/V good appetite no abd pain No melena or BRBPR No cough or sputum No CP or SOB ' no dysuria No leg pain Offers no other c/o Vitals/Results Intake & Output 07/04/16 07/04/16 07/05/16 15:00 23:00 07:00 Intake Total 1200 ml Output Total 800 ml 1250 ml 400 ml Balance 400 ml -1250 ml -400 ml Intake Oral 1200 ml Output Urine Total 800 ml 1250 ml 400 ml # Voids 1 1 # Bowel Movements 1 3 Vital Signs Vital Signs Date Time Temp Pulse Resp B/P Pulse Ox O2 Delivery O2 Flow Rate FiO2 07/05/16 16:20 96.6 79 20 155/102 99 192/103 07/05/16 12:59 78 16 136/80 97 07/05/16 12:55 82 18 132/82 94 07/05/16 12:50 98.1 83 18 125/78 97 07/05/16 12:00 97.8 76 20 121/75 95 07/05/16 08:00 97.4 82 20 159/79 95 07/05/16 04:00 97.6 82 17 120/67 95 07/05/16 00:00 97.8 100 20 167/94 95 07/04/16 22:00 87 07/04/16 20:00 98.1 81 17 138/75 96 CBC/BMP: 07/05/16 0605 07/04/16 0531 Lab Results Laboratory Tests Test 07/05/16 06:05 White Blood Count 9.3 TH/MM3 Red Blood Count 3.25 MIL/MM3 Hemoglobin 7.5 GM/DL Hematocrit 24.0 % Mean Corpuscular Volume 73.9 FL Mean Corpuscular Hemoglobin 23.0 PG Mean Corpuscular Hemoglobin 31.1 % Concent Red Cell Distribution Width 27.7 % Platelet Count 123 TH/MM3 Mean Platelet Volume 8.8 FL Prothrombin Time 12.4 SEC Prothromb Time International 1.1 RATIO Ratio Physical Exam General General Appearance: No Acute Distress, Comfortable, Obese Eyes Eye Exam: Pupils Equal, Sclera White, Extraocular Movement Intact Ears & Nose Ears & Nose Exam: Nasal Mucosa [place] Throat Throat Exam: Oral Mucosa [place] & Moist Neck Neck Exam: Neck Supple, Trachea Midline Pulmonary Resp Exam: Clear Bilaterally, Breath Sounds Equal Cardiology CV Exam: Regular, Normal Sinus Rhythm Gastrointestinal/Abdomen GI Exam: Soft, Non-Tender, Bowel Sounds Present Musculoskeletal MS Remarks ch mild R L Ext edema . Amputation R 2nd & 3 rd toe Integumentary Skin Exam: Warm, Dry Extremeties Extremities Exam: Pedal Pulses Palpable Neurologic Neuro Exam: Alert, Awake, Oriented, Speech Clear, Moving All Extremities Psychiatric Psych Exam: Appropriate Responses PUD Prophylasis PUD Prophylaxis: Protonix Assessment/Plan Assessment/Plan ASSESSMENT GI Bleed Severe Anemia: +hemoccult, Hb: 4.3 Recent excessive use of NASAIDs supratherapeutic INR: 4.2 s/p Nausea and vomiting- ?Pancreatic pseudocyst-per CT ? UTI Cholelithiasis per CT: asymptomatic. Cauda equina syndrome with lumbar stenosis and bilateral L4 nerve root impingement per nsx Acute on chronic kidney disease. Hx of Afib, Bilateral lower extremity DVTs, IVC filter in place. HTN, DM PAD s/p RLExt revascularization Plan: S/p transfusion 4 units of PRBC. Transfuse prn to Keep Hb >7.0 S/p transfusion of 2units of FFP. INR: 1.5: monitor. Off Plavix / Off Coumadin s/p EGD 07/05/16 1. There was LA Class A esophagitis noted 2. There was mild gastritis in the gastric antrum 3. Retroflexed views revealed no abnormalities GI Rec 1. Anti-reflux regimen 2. Continue PPI REPEAT EXAM: Return 3 years EGD CSCOPE 07/05/16 1. Moderate diverticulosis was noted in the sigmoid colon 2. Retroflexed views revealed internal hemorrhoids 3. Revealed external hemorrhoids GI Rec 1. Benefiber 2 tsp daily 2. Continue surveillance 3. Yearly hemoccult 4. No seeds, nuts and popcorn in diet 5. Xray for Small bowel follow through Return 3 years Colonoscopy pt likely will need capsule Enteroscopy iron studies [ though will not be reliabe now after rcv multiple Units of PRBC tx ] BP control statin UA ur c/s noted will d/c IV rocephin PT eval ss for d.c planning am labs will f/u Dina Arreguin MD Jul 05, 2016 17:19
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
[2016-07-05 20:00] VITALS: BP 159/86; PULSE 75; RESP 18; TEMP 98.2; O2SAT 94
[2016-07-06] VITALS (7 sets, daily range): BP systolic 131–154; BP diastolic 68–99; PULSE 70–80; RESP 16–18; TEMP 96–98.9; O2SAT 94–99
[2016-07-06] MEDS: TEMAZEPAM 15 MG CAP PO PRN ×2 (00:55→20:44)
[2016-07-06] MEDS: INSULIN NovoLIN REGULAR SUPPLEMENTAL SCALE SQ SCH ×4 (04:54→20:44)
[2016-07-06 08:30] LABS: HEMATOCRIT 24.6 % (39.0-51.0); MEAN CELL VOLUME 73.5 FL (80.0-100.0); MEAN CORPUSCULAR HEMOGLOBIN 22.8 PG (27.0-34.0); PLATELET COUNT 149 TH/MM3 (150-450); RED BLOOD COUNT 3.34 MIL/MM3 (4.50-5.90); WHITE BLOOD COUNT 8.5 TH/MM3 (4.0-11.0)
[2016-07-06 08:36] LABS: REVIEW FLAG FINAL
[2016-07-06] MEDS: cloNIDine HCL 0.2 MG TAB PO SCH ×3 (08:56→18:46)
[2016-07-06] MEDS: SODIUM CHLORIDE 0.9% FLUSH 5 ML FLUSH FLUSH SCH ×2 (08:56→19:54)
[2016-07-06] MEDS: FUROSEMIDE 20 MG TAB PO SCH ×2 (08:56→18:46)
[2016-07-06] MEDS: GABAPENTIN 300 MG CAP PO SCH ×3 (08:56→18:46)
[2016-07-06] MEDS: PRAVASTATIN SOD 80 MG TAB PO SCH ×2 (08:56→08:59)
[2016-07-06] MEDS: PANTOPRAZOLE SODIUM 40 MG VIAL IV PUSH SCH (08:56)
[2016-07-06 09:01] LABS: ANION GAP 7 MEQ/L (5-15); BICARBONATE 29.2 MEQ/L (21.0-32.0); BLOOD UREA NITROGEN 8 MG/DL (7-18); CHLORIDE 103 MEQ/L (98-107); FERRITIN 12 NG/ML (26-388); GLOMERULAR FILTRATION RATE 69 ML/MIN (>89); POTASSIUM 3.3 MEQ/L (3.5-5.1); SODIUM (NA) 139 MEQ/L (136-145); TRANSFERRIN IRON PROFILE 262 MG/DL (200-360)
[2016-07-06] MEDS: SODIUM CHLOR 0.45% 1000 ML INJ 1,000 ML IV SCH (10:45)
--- NOTE | 2016-07-06 15:30 | HHI.PR ---
Subjective History of Present Illness pt is seen & Examined chart Reviewed I am ok No N/V good appetite no abd pain No melena or BRBPR No cough or sputum No CP or SOB ' no dysuria No leg pain Offers no other c/o Vitals/Results Intake & Output 07/05/16 07/05/16 07/06/16 15:00 23:00 07:00 Intake Total 1188 ml Output Total 550 ml 650 ml 550 ml Balance 638 ml -650 ml -550 ml Intake Oral 788 ml IV Total 400 ml Output Urine Total 550 ml 650 ml 550 ml # Voids 2 # Bowel Movements 1 Vital Signs Vital Signs Date Time Temp Pulse Resp B/P Pulse Ox O2 Delivery O2 Flow Rate FiO2 07/06/16 12:00 96.1 77 16 142/99 99 07/06/16 08:00 96.8 75 16 142/71 95 07/06/16 04:48 97.3 80 18 148/76 94 07/06/16 00:00 98.9 80 16 131/68 95 07/05/16 20:00 98.2 75 18 159/86 94 07/05/16 16:20 96.6 79 20 155/102 99 192/103 CBC/BMP: 07/06/16 0800 07/06/16 0646 Lab Results Laboratory Tests Test 07/06/16 07/06/16 06:46 08:00 Sodium Level 139 MEQ/L Potassium Level 3.3 MEQ/L Chloride Level 103 MEQ/L Carbon Dioxide Level 29.2 MEQ/L Anion Gap 7 MEQ/L Blood Urea Nitrogen 8 MG/DL Creatinine 1.27 MG/DL Estimat Glomerular Filtration 69 ML/MIN Rate Random Glucose 156 MG/DL Calcium Level 8.6 MG/DL Iron Level 12 MCG/DL Total Iron Binding Capacity 367 MCG/DL Percent Iron Saturation 3.3 % Ferritin 12 NG/ML White Blood Count 8.5 TH/MM3 Red Blood Count 3.34 MIL/MM3 Hemoglobin 7.6 GM/DL Hematocrit 24.6 % Mean Corpuscular Volume 73.5 FL Mean Corpuscular Hemoglobin 22.8 PG Mean Corpuscular Hemoglobin 31.0 % Concent Red Cell Distribution Width 28.0 % Platelet Count 149 TH/MM3 Mean Platelet Volume 9.9 FL Physical Exam General General Appearance: No Acute Distress, Comfortable, Obese Eyes Eye Exam: Pupils Equal, Sclera White, Extraocular Movement Intact Ears & Nose Ears & Nose Exam: Nasal Mucosa [place] Throat Throat Exam: Oral Mucosa [place] & Moist Neck Neck Exam: Neck Supple, Trachea Midline Pulmonary Resp Exam: Clear Bilaterally, Breath Sounds Equal Cardiology CV Exam: Regular, Normal Sinus Rhythm Gastrointestinal/Abdomen GI Exam: Soft, Non-Tender, Bowel Sounds Present Musculoskeletal MS Remarks ch mild R L Ext edema . Amputation R 2nd & 3 rd toe Integumentary Skin Exam: Warm, Dry Extremeties Extremities Exam: Pedal Pulses Palpable Neurologic Neuro Exam: Alert, Awake, Oriented, Speech Clear, Moving All Extremities Psychiatric Psych Exam: Appropriate Responses PUD Prophylasis PUD Prophylaxis: Protonix Assessment/Plan Assessment/Plan ASSESSMENT GI Bleed Severe Anemia: Recent excessive use of NASAIDs supratherapeutic INR: 4.2 s/p Nausea and vomiting- ?Pancreatic pseudocyst-per CT ? UTI Cholelithiasis per CT: asymptomatic. Cauda equina syndrome with lumbar stenosis and bilateral L4 nerve root impingement per nsx Acute on chronic kidney disease. Hx of Afib, Bilateral lower extremity DVTs, IVC filter in place. HTN, DM PAD s/p RLExt revascularization Plan: S/p transfusion 4 units of PRBC. S/p transfusion of 2units of FFP. Off Plavix / Off Coumadin s/p EGD 07/05/16 1. There was LA Class A esophagitis noted 2. There was mild gastritis in the gastric antrum 3. Retroflexed views revealed no abnormalities GI Rec 1. Anti-reflux regimen 2. Continue PPI REPEAT EXAM: Return 3 years EGD CSCOPE 07/05/16 1. Moderate diverticulosis was noted in the sigmoid colon 2. Retroflexed views revealed internal hemorrhoids 3. Revealed external hemorrhoids GI Rec 1. Benefiber 2 tsp daily 2. Continue surveillance 3. Yearly hemoccult 4. No seeds, nuts and popcorn in diet 5. Xray for Small bowel follow through Return 3 years Colonoscopy Status post small bowel follow-through, no acute finding Diet advanced to diabetic diet Discussed sera Drew to resume Coumadin Follow INR Follow H&H will need capsule Enteroscopy as outpatient iron studies noted Will start IV iron, 100 mg 1 dose BP control statin PT eval ss for d.c planning/ possible DC home in a.m. if remains stable with slow anticoagulation on outpatient basis Discussed with patient Discussed with RN am labs will f/u Dina Arreguin MD Jul 06, 2016 15:30
[2016-07-06] MEDS ORDERED: WARFARIN SOD 7.5 MG TAB PO SCH (17:00)
--- NOTE | 2016-07-06 17:34 | HHI.GIFU ---
Subjective Remarks Feeling better, no abdominal pain or diarrhea (Carlee Hughes) Objective Vitals I&O Vital Signs Date Time Temp Pulse Resp B/P Pulse Ox O2 Delivery O2 Flow Rate FiO2 07/06/16 16:00 96.0 70 16 151/98 97 07/06/16 12:00 96.1 77 16 142/99 99 07/06/16 08:00 96.8 75 16 142/71 95 07/06/16 04:48 97.3 80 18 148/76 94 07/06/16 00:00 98.9 80 16 131/68 95 07/05/16 20:00 98.2 75 18 159/86 94 I/O 07/05/16 07/05/16 07/05/16 07/06/16 07/06/16 07/06/16 07:00 15:00 23:00 07:00 15:00 23:00 Intake Total 1188 ml 1500 ml Output Total 400 ml 550 ml 650 ml 550 ml 900 ml Balance -400 ml 638 ml -650 ml -550 ml 600 ml Intake Oral 788 ml 1500 ml IV Total 400 ml Output Urine Total 400 ml 550 ml 650 ml 550 ml 900 ml # Voids 1 2 # Bowel Movements 3 1 0 Laboratory Laboratory Tests Test 07/06/16 07/06/16 06:46 08:00 Sodium Level 139 Potassium Level 3.3 Chloride Level 103 Carbon Dioxide Level 29.2 Anion Gap 7 Blood Urea Nitrogen 8 Creatinine 1.27 Estimat Glomerular Filtration 69 Rate Random Glucose 156 Calcium Level 8.6 Iron Level 12 Total Iron Binding Capacity 367 Percent Iron Saturation 3.3 Ferritin 12 White Blood Count 8.5 Red Blood Count 3.34 Hemoglobin 7.6 Hematocrit 24.6 Mean Corpuscular Volume 73.5 Mean Corpuscular Hemoglobin 22.8 Mean Corpuscular Hemoglobin 31.0 Concent Red Cell Distribution Width 28.0 Platelet Count 149 Mean Platelet Volume 9.9 Imaging Last Impressions Small Bowel X-Ray 07/05/16 0000 Signed Impressions: Service Date/Time: Tuesday, July 05, 2016 13:14 - CONCLUSION: Grossly Unremarkable small bowel examination. Juan Luis Dunne MD Abdomen/Pelvis CT 07/01/16 0000 Signed Impressions: Service Date/Time: June 22:00 - CONCLUSION: 1. Low density mass in the supriya hepatis, not new but is slightly larger. It has a very benign appearance. Potentially this is a duodenal diverticulum. Pancreatic pseudocyst possible but considered less likely. An exophytic cyst arising from the liver would be possible. 2. Cholelithiasis without evidence of acute complication. 3. 4.8 cm low-density lesion of the spleen is stable, remains nonspecific but is most likely benign. 4. No obstruction or acute inflammatory changes are demonstrated. 5. Mild wall thickening of the urinary bladder, correlate with possible mild acute cystitis. Giovanny Echavarria MD Physical Exam HEENT: PERRLA. Normocephalic; atraumatic; no jaundice. NECK: Neck is supple, no JVD, no lymphadenopathy. CHEST: CTA. CARDIAC: RRR with no murmur gallop or rubs. ABDOMEN: Soft, nondistended, obese, nontender; no hepatosplenomegaly; bowel sounds x 4 quadrants. EXTREMITIES: No clubbing, cyanosis, or edema. SKIN: Normal; no rash; no jaundice. RN CLINICAL APPEALS: No focal deficits; A&Ox3. (Carlee Hughes) Assessment and Plan Plan - Anemia with Hemoccult (+) stool. Had severe anemia of 4.3, INR of 4.2. He received 4 units of blood and 2 units of FFP. Today H/H stable, 7.3/23.2. Patient denies any sings of bleeding. Denies hematemesis, abdomen pain, melena or hematochezia. CT on (07/01/16)-->1. Low density mass in the supriya hepatis, not new but is slightly larger. t has a very benign appearance. Potentially this is a duodenal diverticulum. Pancreatic pseudocyst possible but considered less likely. An exophytic cyst arising from the liver would be possible. 2. Cholelithiasis without evidence of acute complication. 3. 4.8 cm low-density lesion of the spleen is stable, remains nonspecific but is most likely benign. 4. No obstruction or acute inflammatory changes are demonstrated. 5. Mild wall thickening of the urinary bladder, correlate with possible mild acute cystitis. Patient has a known history of anemia, he was seen by our services last year S/P EGD/Colonoscopy (09/23/15)----> LA Class B esophagitis, retroflexed views revealed retained food in the stomach; colonic mucosa appeared normal, retroflexed views revealed medium internal hemorrhoids. - Nausea and vomiting- LFTs, lipase normal, CT as above - Supratherapeutic INR of 4.2- corrected s/p 2 FFP, INR 1.5 - Low density mass in the supriya hepatis, not new but is slightly larger. CT above, AFP normal - ?Pancreatic pseudocyst- as imaging above - Possible cystitis- per attending - Cauda equina syndrome with lumbar stenosis and bilateral L4 nerve root impingement per nsx - Acute on chronic kidney disease. - Afib, Bilateral lower extremity DVTs, IVC filter in place. Coumadin, Plavix - HTN, DM per primary. 07/06/16 H&H still low 7.6/24.6, denies abdominal pain no blood in stools. Colonoscopy done on 07/05/16 showed diverticulosis and EGD showed esophagitis. SBFT was unremarkable. Will need a capsule endoscopy as an out patient. PLAN: - Consider repeat CT in 2 weeks for f/u on liver and pancreas findings - Cont. PPI - Monitor HH - Transfuse as needed to keep hgb >7 - Follow up with GI outpatient in 2 weeks will need a capsule endoscopy Will sign off Pt seen and examined by Dr. Joya and myself and this note is written on his behalf (Carlee Hughes) Physician Comments Seen and examined with ADRIAN, no bleeding, SBFT -ve. Needs pill endoscopy as outpt. Please schedule fu with gi upon dc. Discussed with Dr. Arreguin. Thank you ( Christiane Joya MD) Carlee Hughes Jul 06, 2016 17:34 Christiane Joya MD Jul 06, 2016 18:08
[2016-07-06] MEDS ORDERED: IRON SUCROSE 100 MG/5 ML VIAL IV PUSH ONE (18:00)
[2016-07-07] VITALS: BP 141/75; PULSE 72; RESP 18; TEMP 97.8; O2SAT 95
[2016-07-07 04:00] VITALS: BP 143/73; PULSE 71; RESP 18; TEMP 98; O2SAT 97
[2016-07-07] MEDS: INSULIN NovoLIN REGULAR SUPPLEMENTAL SCALE SQ SCH ×2 (06:02→13:14)
[2016-07-07 07:52] LABS: HEMATOCRIT 25.2 % (39.0-51.0); MEAN CELL VOLUME 73.3 FL (80.0-100.0); MEAN CORPUSCULAR HEMOGLOBIN 22.5 PG (27.0-34.0); MEAN CORPUSCULAR HGB CONC 30.7 % (32.0-36.0); PLATELET COUNT 159 TH/MM3 (150-450); RED BLOOD COUNT 3.44 MIL/MM3 (4.50-5.90); WHITE BLOOD COUNT 8.5 TH/MM3 (4.0-11.0)
[2016-07-07 07:57] LABS: INTERNATIONAL NORMALIZED RATIO 3.7 RATIO; PROTHROMBIN TIME - PATIENT 42.9 SEC (9.8-11.6)
[2016-07-07 08:00] VITALS: BP 148/72; PULSE 75; RESP 16; TEMP 97.7; O2SAT 96
[2016-07-07 08:07] LABS: REVIEW FLAG FINAL
[2016-07-07] MEDS ORDERED: POTASSIUM CHLORIDE 25 MEQ EFFERVESCENT TAB PO ONE (08:45)
[2016-07-07] MEDS ORDERED: PANTOPRAZOLE SOD 40 MG DELAYED RELEASE TAB PO SCH (09:00)
[2016-07-07] MEDS: GABAPENTIN 300 MG CAP PO SCH ×2 (10:38→13:14)
[2016-07-07] MEDS: FUROSEMIDE 20 MG TAB PO SCH (10:38)
[2016-07-07] MEDS: PRAVASTATIN SOD 80 MG TAB PO SCH (10:38)
[2016-07-07] MEDS: cloNIDine HCL 0.2 MG TAB PO SCH ×2 (10:39→13:14)
[2016-07-07] MEDS: SODIUM CHLORIDE 0.9% FLUSH 5 ML FLUSH FLUSH SCH (10:40)
[2016-07-07] MEDS: SODIUM CHLOR 0.45% 1000 ML INJ 1,000 ML IV SCH (10:45)
--- NOTE | 2016-07-07 10:48 | HHI.PR ---
Subjective Subjective Remarks up in chair feels good hopes to go home appetite good. no bleeding (Vee Yao) Review of Systems Constitutional Constitutional Remarks 10 point ROS done. No acute bleeding noted, patient alert and oriented, hypo- kalemia, still wants go home. Systems negative or unremarkable, (Vee Yao) Psychiatric Psychiatric: Normal Mood (Vee Yao) Vitals/Results Intake & Output 07/06/16 07/06/16 07/07/16 15:00 23:00 07:00 Intake Total 1980 ml 240 ml Output Total 1325 ml 550 ml Balance 655 ml -310 ml Intake Oral 1980 ml 240 ml Output Urine Total 1325 ml 550 ml # Bowel Movements 0 Vital Signs Vital Signs Date Time Temp Pulse Resp B/P Pulse Ox O2 Delivery O2 Flow Rate FiO2 07/07/16 08:00 97.7 75 16 148/72 96 07/07/16 04:00 98.0 71 18 143/73 97 07/07/16 00:00 97.8 72 18 141/75 95 07/06/16 20:45 72 07/06/16 20:00 98.0 80 18 154/86 96 07/06/16 16:00 96.0 70 16 151/98 97 07/06/16 12:00 96.1 77 16 142/99 99 (Vee Yao) CBC/BMP: 07/07/16 0627 07/06/16 0646 Lab Results Laboratory Tests Test 07/07/16 06:27 White Blood Count 8.5 TH/MM3 Red Blood Count 3.44 MIL/MM3 Hemoglobin 7.7 GM/DL Hematocrit 25.2 % Mean Corpuscular Volume 73.3 FL Mean Corpuscular Hemoglobin 22.5 PG Mean Corpuscular Hemoglobin 30.7 % Concent Red Cell Distribution Width 28.0 % Platelet Count 159 TH/MM3 Mean Platelet Volume 9.1 FL Prothrombin Time 42.9 SEC Prothromb Time International 3.7 RATIO Ratio Current Medications Active Medications Iron Sucrose (Venofer Inj) 100 mg ONCE ONCE IV PUSH Last administered on t 19:49; Admin Dose 100 MG; Start 07/06/16 at 18:00; Stop 07/06/16 at 18:01; Status DC Pantoprazole Sodium (Protonix) 40 mg DAILY PO; Start 07/07/16 at 09:00 Patient Medication Teaching (Coumadin Booklet) 1 ONCE ONCE XX Last administered on 07/06/16 18:46; Admin Dose 1; Start 07/06/16 at 17:00; Stop at 17:01; Status DC Potassium Bicarb/ Potassium Chloride (K-Lyte Cl Eff) 50 meq ONCE ONCE PO; Start 07/07/16 at 08:45; Stop 07/07/16 at 08:57; Status DC Warfarin Sodium (Coumadin) 7.5 mg DAILY@16 PO Last administered on 07/06/16 18: 46; Admin Dose 7.5 MG; Start 07/06/16 at 17:00; Status Hold (Vee Yao) Physical Exam General General Appearance: No Acute Distress, Comfortable, Obese (Vee Yao) Eyes Eye Exam: Pupils Equal, Sclera White, Extraocular Movement Intact (Vee Yao) Ears & Nose Ears & Nose Exam: Nasal Mucosa [place] (Vee Yao) Throat Throat Exam: Oral Mucosa [place] & Moist (Vee Yao) Neck Neck Exam: Neck Supple, Trachea Midline (Vee Yao) Pulmonary Resp Exam: Clear Bilaterally, Breath Sounds Equal Resp Remarks No shortness of breath (Vee Yao) Cardiology CV Exam: Regular, Normal Sinus Rhythm (Vee Yao) Gastrointestinal/Abdomen GI Exam: Soft, Non-Tender, Bowel Sounds Present (Vee Yao) Musculoskeletal MS Exam: Joints Intact MS Remarks Up in chair (Vee Yao) Integumentary Skin Exam: Warm, Dry (Vee Yao) Extremeties Extremities Exam: Pedal Pulses Palpable (Vee Yao) Neurologic Neuro Exam: Alert, Awake, Oriented, Speech Clear, Moving All Extremities ( Vee Yao) Psychiatric Psych Exam: Appropriate Responses (Vee Yao) PUD Prophylasis PUD Prophylaxis: Protonix (Vee Yao) Assessment/Plan Assessment/Plan ASSESSMENT GI Bleed Severe Anemia: Recent excessive use of NASAIDs supratherapeutic INR: 4.2 s/p Nausea and vomiting- ?Pancreatic pseudocyst-per CT ? UTI Cholelithiasis per CT: asymptomatic. Cauda equina syndrome with lumbar stenosis and bilateral L4 nerve root impingement per nsx Acute on chronic kidney disease. Hx of Afib, Bilateral lower extremity DVTs, IVC filter in place. HTN, DM PAD s/p RLExt revascularization Plan: S/p transfusion 4 units of PRBC. S/p transfusion of 2units of FFP. Off Plavix / Off Coumadin today, INR jumped up to 3.7, monitor s/p EGD 07/05/16, positive for class a esophagitis, and gastritis Medical management PPI Colonoscopy showed diverticulosis internal hemorrhoids and external hemorrhoids Medical management, patient will need increased fiber in his diet but no seeds nuts or popcorn according to GI made. Will need follow-up scope and approximately 3 years Patient now on diabetic diet tolerating well Hypokalemia mild this a.m., extra dose potassium given PT eval ss for d.c planning/ possible DC home, explained to patient some abnormals found this morning, he is insistent on going at home if at all possible. We'll discuss with Dr. Arreguin, patient seen on his behalf Other medical comorbidities stable, no acute pain, vital signs and labs reviewed Discussed with patient Discussed with RN (Vee Yao) Assessment/Plan pt is seen & examined feels well/ eager to go home / all dressed up No N/v, No abd pain No melena or BRBPR INR jumped w 1 dose coumadin < ? vit k def will give 1 dose Vit K sq NO coumadin today , start coumadin 2 mg brad starting in am dc home today w [facility] see orders f/u pcp f/u GI in 2 wks for capsule enteroscopy/ repeat CT abd see Orders see MRS (Dina Arreguin MD) Vee Yao Jul 07, 2016 10:48 Dina Arreguin MD Jul 07, 2016 11:43
[2016-07-07] MEDS ORDERED: PHYTONADIONE 10 MG/ML VIAL SQ ONE (11:45)
[2016-07-07] MEDS ORDERED: COUM2TAB PO (11:47)
[2016-07-07] MEDS ORDERED: FERR325T PO (11:47)
[2016-07-07] MEDS ORDERED: PANT40TA3 PO (11:47)
--- NOTE | 2016-07-07 11:48 | HHI.FF ---
Face to Face Verification Diagnosis: (1) Anemia (2) GI bleed (3) Acute kidney injury superimposed on CKD (4) A-fib (5) DVT (deep venous thrombosis) (6) HTN (hypertension) (7) DM (diabetes mellitus) (8) Overweight (BMI 25.0-29.9) (9) Lumbar stenosis (10) Cauda equina syndrome (11) Coagulopathy Physical Therapy Order: Evaluate and Treat, Improve ambulation, Strength and gait training Home Health Nursing Order: Signs/symptoms of disease process Diabetic education Medication education-adverse effect I have seen patient Hao Castillo on 07/07/16. My clinical findings support the need for the requested home health care services because: Ltd mobility - disease progression Patient has SOB Deconditioned w/ increased weakness I certify that my clinical findings support that this patient is homebound because: Unsteady gait/balance Unsafe to leave home unassisted Unable to use public transportation Dina Arreguin MD Jul 07, 2016 11:48
[2016-07-07 12:00] VITALS: BP 177/93; PULSE 76; RESP 14; TEMP 96.5; O2SAT 98
--- NOTE | 2016-07-11 17:41 | HHI.DS ---
Discharge Summary Admission Date Jul 01, 2016 at 22:51 Discharge Date: Jul 07, 2016 Admitting Diagnosis GI bleed, severe anemia, coagulopathy with elevated INR (1) Anemia Diagnosis: Principal (2) HTN (hypertension) (3) DM (diabetes mellitus) (4) A-fib (5) Acute kidney injury superimposed on CKD (6) GI bleed (7) Coagulopathy Procedures s/p EGD 07/05/16, positive for class a esophagitis, and gastritis Colonoscopy showed diverticulosis internal hemorrhoids and external hemorrhoids CBC/BMP: 07/07/16 0627 Imaging Last Impressions Small Bowel X-Ray 07/05/16 0000 Signed Impressions: Service Date/Time: Tuesday, July 05, 2016 13:14 - CONCLUSION: Grossly Unremarkable small bowel examination. Juan Luis Dunne MD Abdomen/Pelvis CT 07/01/16 0000 Signed Impressions: Service Date/Time: June 22:00 - CONCLUSION: 1. Low density mass in the supriya hepatis, not new but is slightly larger. It has a very benign appearance. Potentially this is a duodenal diverticulum. Pancreatic pseudocyst possible but considered less likely. An exophytic cyst arising from the liver would be possible. 2. Cholelithiasis without evidence of acute complication. 3. 4.8 cm low-density lesion of the spleen is stable, remains nonspecific but is most likely benign. 4. No obstruction or acute inflammatory changes are demonstrated. 5. Mild wall thickening of the urinary bladder, correlate with possible mild acute cystitis. Giovanny Echavarria MD Hospital Course This is a pleasant 65-year-old male who had been in his usual state of health up until the last few weeks. He did note some shortness of breath off and on which seemed to be related more to exertion. The patient has been a long-term smoker but during that period of time when the shortness of breath got worse he quit smoking. Over the last few days the patient has noted increased generalized weakness with some aching type abdominal pain. The pain is noted to be more in the epigastric region and has waxed and waned. The day before, the patient was eating seafood and immediately started with increased nausea and vomiting to the point that he could not keep anything on his stomach. The patient denied any diarrhea or constipation. He stated no bowel movement in the last three days. The patient noted that the vomitus was food and then bile-appearing in color but denied any bright red bleeding. The patient's abdominal pain continued to get worse and he came to the emergency room for evaluation. The patient is a known diabetic, takes an increased amount of insulin. He does have multiple other co-morbidities such as hypertension, hyperlipidemia and congestive heart failure. He also has a history of DVT. Reported excessive use of NSAIDS Was evaluated in the ED and labs and imaging studies were done: WBC count 8.5, RBC 2.59. Hemoglobin initially in the ER 4.3, redrawn this morning now 5.6. Hematocrit 17.9, platelet count 112, neutrophil auto count 70.6, monocyte auto count 10.4, low platelet estimate, enlarged morphology of platelets ovalocytes 1+, occasional spur. INR is 1.5. Chemistry: Sodium 142, potassium 3.8, chloride 105, carbon dioxide 28.1, anion gap 9, BUN 25, creatinine 1.45, GFR 59, random glucose 126. Urine is light yellow, clear, pH 5.5, specific gravity 1.014, protein 30, negative glucose, ketones, occult blood, nitrites bilirubin and leukocyte esterase. Culture is not indicated. IMAGING DATA Abdomen and pelvis CT shows low density mass in the supriya hepatis not new but slightly larger, looks benign, potentially a duodenal diverticulum, pancreatic pseudocyst possible, cyst arising from the liver could be possible, cholelithiasis without evidence of acute complication. A 4.8 cm low density lesion in the spleen is stable. No obstruction or inflammatory changes are demonstrated. Mild wall thickening of the urinary bladder correlated with possible mild acute cystitis. Pt. admitted with : 1. Anemia, severe.Recent excessive use of NASAIDs 2. GI bleed. 3. Obesity. 4. Acute kidney injury with chronic kidney disease. 5. Diabetes. 6. Hypertension. 7. Atrial fibrillation. 8. supratherapeutic INR: 4.2 9. s/p Nausea and vomiting- 10. ?Pancreatic pseudocyst-per CT 11. ? UTI 12. Cholelithiasis per CT: asymptomatic. 13. Cauda equina syndrome with lumbar stenosis and bilateral L4 nerve root impingement per nsx 14. Bilateral lower extremity DVTs, IVC filter in place. 15. PAD s/p RLExt revascularization During the course of the hospitalization, the following took place: Patient put on IV fluids, Plavix and Coumadin held. Protonix was started Patient was put on continuous cardiac telemetry Renal function was monitored closely Gastroenterology was consulted for evaluation Patient was noted with supratherapeutic INR of 4.2-was given FFP and vitamin K It and received 4 units of packed cells Underwent EGD on 07/05/16, found positive for class a esophagitis and gastritis Colonoscopy showed diverticulosis, internal hemorrhoids and sternal hemorrhoids Recommendations were made to continue PPI, increase fiber in diet, no seeds, no nodes, no popcorn. Patient will need to have follow-up scope in approximately 3 years She was treated with antibiotics for UTI Patient was noted hypokalemic, potassium was replaced Physical therapy was ordered to assist with mobility Case management was consulted to assist with discharge planning Patient had no further episodes of melena, no BRBPR INR was continue to follow, restarted on Coumadin. It increased with just one dose. He was given an extra dose of vitamin K subcutaneous Patient was recommended to follow-up with GI in 2 weeks for capsule endoscopy and repeat CT of the abdomen Patient was stable for discharge Patient was discharged home in stable condition Pt Condition on Discharge: Stable Discharge Disposition: Disch w/ Home Health Serv Discharge Instructions DIET: Follow Instructions for: Heart Healthy Diet, Diabetic Diet, Coumadin ( Warfarin) Diet Fluid Restrictions: none Activities you can perform: Regular-No Restrictions Other Activity Instructions: fall precautions Follow up Referrals: Gastroenterology - 2 Weeks PCP Follow-up - 1 Week New Medications: Ferrous Sulfate (Ferrous Sulfate) 325 Mg Tab 325 MG PO DAILY Nutritional Supplement #30 Ref 0 TAB Warfarin (Coumadin) 2 Mg Tab 2 MG PO DAILY Prevent Blood Clot #30 Ref 0 TAB Pantoprazole (Pantoprazole) 40 Mg Tab 40 MG PO DAILY inflammation #30 TAB Continued Medications: Clonidine (Clonidine) 0.3 Mg Tab 0.3 MG PO TID Blood Pressure Management #60 Ref 0 TAB Furosemide (Lasix) 40 Mg Tab 40 MG PO DAILY #30 Ref 0 TAB Gabapentin (Gabapentin) 600 Mg Tab 600 MG PO TID #90 Ref 0 TAB Insulin Aspart Inj (Novolog Inj) 1,000 Unit/10 Ml Vial 0 SQ DIRECTED Sliding Scale as directed. Blood Sugar Management #10 Ref 0 ML Insulin Detemir Inj (Levemir Inj) 1,000 unit/ 10 ML Vial 100 UNITS SQ am Do not mix with any other Insulin. Blood Sugar Management Ref 0 VIAL Simvastatin (Zocor) 40 Mg Tab 40 MG PO DAILY Cholesterol Management #30 Ref 0 TAB Temazepam (Temazepam) 30 Mg Cap 30 MG PO HS PRN INSOMNIA #30 Ref 0 CAP Discontinued Medications: Clopidogrel (Plavix) 75 Mg Tab 75 MG PO DAILY Blood Clot Prevention #30 Ref 0 TAB Furosemide (Lasix) 20 Mg Tab 20 MG PO DAILY PRN prn #30 Ref 0 TAB Warfarin (Warfarin) 7.5 Mg Tab 7.5 MG PO DAILY Blood Clot Prevention #30 Ref 0 TAB Doretha Arias Jul 11, 2016 17:41
== END 2016-07-07 14:27 | disposition home health service (06) | DRG 683 ==
LOC: NEPE 20:41 → NEDA 22:51 → NEDH 07-02 02:57 → HOCA 07-02 20:47
PROVIDERS: ADMIT Specialist; ATTEND Specialist
PROC: 30233K1 Transfusion of Nonautologous Frozen Plasma into Peripheral Vein, Percutaneous Approach (ICD-10-PCS; principal; 2016-07-01)
PROC: 30233N1 Transfusion of Nonautologous Red Blood Cells into Peripheral Vein, Percutaneous Approach (ICD-10-PCS; 2016-07-02)
PROC: 0DJ08ZZ Inspection of Upper Intestinal Tract, Via Natural or Artificial Opening Endoscopic (ICD-10-PCS; 2016-07-05)
PROC: 0DJD8ZZ Inspection of Lower Intestinal Tract, Via Natural or Artificial Opening Endoscopic (ICD-10-PCS; 2016-07-05)
DX: N17.9 Acute kidney failure, unspecified (principal); K86.3 Pseudocyst of pancreas; E11.22 Type 2 diabetes mellitus with diabetic chronic kidney disease; K76.89 Other specified diseases of liver; I13.0 Hypertensive heart and chronic kidney disease with heart failure and stage 1 through stage 4 chronic kidney disease, or unspecified chronic kidney disease; J44.9 Chronic obstructive pulmonary disease, unspecified; I48.91 Unspecified atrial fibrillation; I50.9 Heart failure, unspecified; G83.4 Cauda equina syndrome; F17.210 Nicotine dependence, cigarettes, uncomplicated; D50.9 Iron deficiency anemia, unspecified; E78.5 Hyperlipidemia, unspecified; E66.9 Obesity, unspecified; N18.9 Chronic kidney disease, unspecified; K59.00 Constipation, unspecified; M19.90 Unspecified osteoarthritis, unspecified site; K80.20 Calculus of gallbladder without cholecystitis without obstruction; K21.0 Gastro-esophageal reflux disease with esophagitis; M48.06 Spinal stenosis, lumbar region; K29.70 Gastritis, unspecified, without bleeding; K57.30 Diverticulosis of large intestine without perforation or abscess without bleeding; K64.8 Other hemorrhoids; K64.4 Residual hemorrhoidal skin tags; R19.5 Other fecal abnormalities; R79.1 Abnormal coagulation profile; N30.90 Cystitis, unspecified without hematuria; I73.9 Peripheral vascular disease, unspecified; E87.6 Hypokalemia; Z79.01 Long term (current) use of anticoagulants; Z79.4 Long term (current) use of insulin; Z68.31 Body mass index [BMI] 31.0-31.9, adult; Z86.711 Personal history of pulmonary embolism; Z86.718 Personal history of other venous thrombosis and embolism
CPT/HCPCS: 36430; 74177; 74250; 80048; 80053; 81001; 82105; 82728; 82948; 83540; 83550; 83690; 83735; 84100; 85007; 85025; 85027; 85610; 85730; 86850; 86900; 86901; 86920; 86927; 93005; 96361; 96374; C9113; J0696; J1756; J2405; J3430; J7030; J7050; P9016; P9017; Q9967

== ENCOUNTER 2016-10-06 10:55 | Inpatient (IN) | payer MEDICARE, OTHER ==
[2016-10-06] VITALS (8 sets, daily range): BP systolic 148–187; BP diastolic 82–115; PULSE 84–102; RESP 16–24; TEMP 97.6–98; O2SAT 95–97
[~2016-10-06] VITALS: Ht 198.1 cm; Wt 121.5 kg
[~2016-10-06 10:55] MED LIST changes: -AMIO200 PO; +CLON0.3T PO; +COUM2TAB PO; -DILT30 PO; -FERR300S PO; +FERR325T PO; +FURO1TAB60 PO; -FURO20 PO; +GABA600T PO; -HYDR-3535 PO; -LABE200 PO; -METHO500 PO; +NOVOLOGP2 SQ; -NOVOLOGSS SQ; -OXYB5 PO; +PANT40TA3 PO; -PLAV75TA PO; -POLY1.4%O EACH EYE; -PROT40TA PO; +TEMA30CA PO; -WARF5 PO
[2016-10-06] MEDS ORDERED: SODIUM CHLOR 0.9% 1000 ML INJ 1,000 ML IV ONE (11:02)
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
[2016-10-06 11:22] LABS: I-STAT POTASSIUM 3.8 MMOL/L (3.5-4.9)
[2016-10-06 11:24] LABS: BASOPHIL # 0.1 TH/MM3 (0-0.2); EOSINOPHIL # 0.2 TH/MM3 (0-0.4); EOSINOPHIL % 3.1 % (0.0-4.0); HEMATOCRIT 43.5 % (39.0-51.0); LYMPH % 29.1 % (9.0-44.0); LYMPHOCYTE # 2.1 TH/MM3 (1.0-4.8); MEAN CELL VOLUME 83.1 FL (80.0-100.0); MEAN CORPUSCULAR HEMOGLOBIN 25.9 PG (27.0-34.0); MEAN CORPUSCULAR HGB CONC 31.1 % (32.0-36.0); MONO % 9.7 % (0.0-8.0); NEUT % 57.1 % (16.0-70.0); PLATELET COUNT 275 TH/MM3 (150-450); RED BLOOD COUNT 5.23 MIL/MM3 (4.50-5.90); RED CELL DISTRIBUTION WIDTH 19.7 % (11.6-17.2)
[2016-10-06 11:27] LABS: HEMO FLAGS AUTO DIFF
--- NOTE | 2016-10-06 11:27 | RADRPT ---
EXAM DATE/TIME: 10/06/2016 11:09 [facility] COMPARISON: CT BRAIN W/O CONTRAST, September 08, 2015, 20:10. INDICATIONS : ####Stoke alert##### RADIATION DOSE: 66.44 CTDIvol (mGy This report was called while scanner. MEDICAL HISTORY : Non-responsive. SURGICAL HISTORY : Non-responsive. ENCOUNTER: Initial ACUITY: 1 day PAIN SCALE: 0/10 LOCATION: cranial TECHNIQUE: Multiple contiguous axial images were obtained of the head. Using automated exposure control and adj ustment of the mA and/or kV according to patient size, radiation dose was kept as low as reasonably a chievable to obtain optimal diagnostic quality images. FINDINGS: CEREBRUM: The ventricles are normal for age. No evidence of midline shift, mass lesion, hemorrhage or acute in farction. No extra-axial fluid collections are seen. POSTERIOR FOSSA: The cerebellum and brainstem are intact. The 4th ventricle is midline. The cerebellopontine angle i s unremarkable. EXTRACRANIAL: The visualized portion of the orbits is intact. SKULL: The calvaria is intact. No evidence of skull fracture. Minimal sphenoid sinus disease is present on the left CONCLUSION: Negative for an acute process. Morris Noyola MD FACR on October 06, 2016 at 11:24 Board Certified Radiologist. This report was verified electronically.
[2016-10-06 11:33] LABS: APTT (PATIENT) 43.4 SEC (24.3-30.1); INTERNATIONAL NORMALIZED RATIO 2.8 RATIO; PROTHROMBIN TIME - PATIENT 32.9 SEC (9.8-11.6)
[2016-10-06] MEDS ORDERED: IOHEXOL 350 MG/ML 10 ML VIAL (for RAD DIAG) IV ONE (11:37)
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
--- NOTE | 2016-10-06 11:53 | RADRPT ---
EXAM DATE/TIME: 10/06/2016 11:23 [facility] COMPARISON: No previous studies available for comparison. INDICATIONS : Stroke alert, bilateral arm weakness. IV CONTRAST: 74 cc Omnipaque 350 (iohexol) IV ; Cumulative dose for multiple exams. RADIATION DOSE: 28.45 CTDIvol (mGy) ; Combined studies MEDICAL HISTORY : None SURGICAL HISTORY : None. ENCOUNTER: Initial ACUITY: 1 day PAIN SCALE: 0/10 LOCATION: Cranial TECHNIQUE: Volumetric scanning was performed using a multi-row detector CT scanner. The data was post processed with a variety of visualization algorithms including full volume maximum intensity pr ojection, multi-planar sliding thin slab reformation, curved planar reformation, and surface renderin g techniques. Using automated exposure control and adjustment of the mA and/or kV according to patie nt size, radiation dose was kept as low as reasonably achievable to obtain optimal diagnostic quality images. FINDINGS: Moderate intracranial atherosclerotic vascular disease is evident. There is no evidence for major br anch vessel occlusion, aneurysm or vascular displacement. Findings are most significant in the left MCA. Basilar artery is involved as well. CONCLUSION: Intracranial atherosclerotic vascular disease without major branch vessel occlusion. Morris Noyola MD FACR on October 06, 2016 at 11:46 Board Certified Radiologist. This report was verified electronically.
[2016-10-06] MEDS ORDERED: ASPIRIN 325 MG TAB PO ONE (12:30)
[2016-10-06 12:31] LABS: SCAN/DIFF AUTO DIFF CONFIRMED
--- NOTE | 2016-10-06 12:47 | RADRPT ---
EXAM DATE/TIME: 10/06/2016 11:34 [facility] COMPARISON: CHEST SINGLE AP, September 10, 2015, 9:20. INDICATIONS : Stroke alert. MEDICAL HISTORY : Hypertension. Chronic obstructive pulmonary disease. Congestive heart failure. Diabetes. Afib. SURGICAL HISTORY : None. ENCOUNTER: Initial ACUITY: 1 day PAIN SCORE: 0/10 LOCATION: Bilateral chest FINDINGS: Minimal linear parenchymal opacities in the left midlung zone similar to previous exam consistent wit h atelectasis/scarring. Cardiac silhouette is enlarged. Pulmonary vascularity is within normal limits . Remainder of exam is unchanged. CONCLUSION: 1. No acute cardiopulmonary disease. Aaron May MD on October 06, 2016 at 12:39 Board Certified Radiologist. This report was verified electronically.
[2016-10-06 12:55] LABS: BACTERIA, URINE RARE /hpf; BLOOD, URINE TRACE (NEG); GLUCOSE,URINE 1000 mg/dL (NEG); HYALINE CAST, URINE 3 /lpf (RARE); KETONE, URINE NEG (NEG); NITRITE,URINE NEG (NEG); PH, URINE 6.5 (5.0-8.5); SQUAMOUS EPITHELIAL CELL URINE <1 /hpf (0-5); URINE COLOR LIGHT-YELLOW (YELLW/STRAW)
[2016-10-06 13:00] LABS: AMPHETAMINE, URINE NEG (NEG); BARBITURATES, URINE NEG (NEG); COCAINE, URINE NEG (NEG)
--- NOTE | 2016-10-06 13:16 | RADRPT ---
EXAM DATE/TIME: 10/06/2016 11:23 [facility] COMPARISON: No previous studies available for comparison. INDICATIONS : Stroke alert, bilateral arm weakness. IV CONTRAST: 74 cc Omnipaque 350 (iohexol) IV ; Cumulative dose for multiple exams. RADIATION DOSE: 28.45 CTDIvol (mGy) ; Combined studies MEDICAL HISTORY : None SURGICAL HISTORY : None. ENCOUNTER: Initial ACUITY: 1 day PAIN SCALE: 0/10 LOCATION: neck Elevated flow velocities and ICA/CCA ratios have been found to correlate with increased degrees of vessel stenosis, calculated as percentage of diameter relative to a normal segment of distal ICA/CCA. TECHNIQUE: Volumetric scanning was performed using a multirow detector CT scanner. The data was post processed with a variety of visualization algorithms including full-volume maximum intensity projection, multip lanar sliding thin-slab reformation, curved-planar reformation, and surface-rendering techniques. Us ing automated exposure control and adjustment of the mA and/or kV according to patient size, radiatio n dose was kept as low as reasonably achievable to obtain optimal diagnostic quality images. FINDINGS: AORTIC ARCH: There is non-standard, bovine type, arch anatomy with common origin of the left common carotid artery and right brachiocephalic artery. Proximal arch vessels are widely patent. RIGHT CAROTID: The common carotid artery is intact. The carotid bulb has a normal configuration. There is a subtle l inear density at the origin of the internal carotid artery which may be artifactual but is concerning for a small focal dissection. The internal carotid artery lumen is otherwise smooth without stenosis . Minimal atherosclerotic calcifications are noted in the very distal supraclinoid ICA. The external carotid artery is intact. LEFT CAROTID: The common carotid artery is intact. The carotid bulb has a normal configuration without ulceration or narrowing. There is likely moderate stenosis of the distal left supraclinoid ICA at the junction of the MCA. The internal carotid artery lumen is otherwise smooth without stenosis.The external carot id artery is intact. VERTEBRALS: The vertebral arteries have a symmetric diameter. No stenotic lesions are seen. MISCELLANEOUS: Incidental note is made of subcentimeter bilateral thyroid nodules. Visualized lung apices are clear. No significant mass or adenopathy in the cervical soft tissues. Moderate to severe degenerative spon dylosis of the cervical spine most prominently at C3-4 and C6-7 with significant disc space loss, end plate sclerosis, and osteophytes. CONCLUSION: 1. Minimal right and moderate left distal supraclinoid ICA stenosis secondary to mixed plaque at the junction of the MCA. 2. 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 3. Incidental note of subcentimeter bilateral thyroid nodules. These can be further evaluated with ul trasound exam on an outpatient basis. 4. Moderate-to severe degenerative spondylosis of the cervical spine most prominently at C3-4 and C6- 7. Aaron May MD on October 06, 2016 at 12:58 Board Certified Radiologist. This report was verified electronically.
[2016-10-06] MEDS ORDERED: FERR325T2 PO (13:33)
[2016-10-06] MEDS ORDERED: DEXTROSE 50% IN WATER 50 ML VIAL(D50) IV PRN (14:00)
[2016-10-06] MEDS ORDERED: GLUCAGON 1 MG/ML VIAL OTHER PRN (14:00)
[2016-10-06] MEDS ORDERED: ACETAMINOPHEN/HYDROcodone 325 MG/7.5 MG TAB PO PRN (14:00)
[2016-10-06] MEDS ORDERED: FURO20TA PO (14:06)
[2016-10-06] MEDS ORDERED: CLON0.1T PO (14:06)
[2016-10-06] MEDS ORDERED: LABE100T2 PO (14:06)
[2016-10-06] MEDS ORDERED: AMLO5TAB2 PO (14:06)
[2016-10-06] MEDS ORDERED: AMIO200T PO (14:06)
[2016-10-06] MEDS ORDERED: POTA10CA PO (14:06)
[2016-10-06] MEDS ORDERED: COUM7.5T PO (14:06)
[2016-10-06] MEDS ORDERED: LISI-515 PO (14:06)
[2016-10-06] MEDS ORDERED: HYDR-3366 PO (14:06)
[2016-10-06] MEDS ORDERED: CHOL1CAP34 PO (14:06)
[2016-10-06] MEDS: CYCLOBENZAPRINE HCL 10 MG TAB PO SCH ×2 (14:21→21:59)
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
[2016-10-06] MEDS: cloNIDine HCL 0.1 MG TAB PO SCH (17:14)
[2016-10-06] MEDS: ACETAMINOPHEN/HYDROcodone 325 MG/10 MG TAB PO PRN ×2 (17:14→21:59)
[2016-10-06] MEDS: INSULIN ASPART SUPPLEMENTAL SCALE SQ SCH ×2 (17:16→21:58)
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
[2016-10-06] MEDS: LABETALOL HCL 100 MG TAB PO SCH (21:58)
[2016-10-06] MEDS: ZOLPIDEM TARTRATE 5 MG TAB PO PRN (21:59)
[2016-10-06] MEDS: FUROSEMIDE 20 MG TAB PO SCH (21:59)
[2016-10-07] VITALS (17 sets, daily range): BP systolic 131–217; BP diastolic 74–138; PULSE 74–105; RESP 16–20; TEMP 98–98.4; O2SAT 94–99
[2016-10-07] MEDS: ACETAMINOPHEN/HYDROcodone 325 MG/10 MG TAB PO PRN ×4 (05:42→21:22)
[2016-10-07] MEDS: CYCLOBENZAPRINE HCL 10 MG TAB PO SCH ×3 (07:02→21:21)
[2016-10-07] MEDS: INSULIN ASPART SUPPLEMENTAL SCALE SQ SCH ×4 (07:02→21:18)
[2016-10-07] MEDS: LISINOPRIL 20 MG TAB PO SCH (07:55)
[2016-10-07] MEDS: PRAVASTATIN SOD 80 MG TAB PO SCH (07:55)
[2016-10-07] MEDS: AMIODARONE 200 MG TAB PO SCH (07:55)
[2016-10-07] MEDS: PANTOPRAZOLE SOD 40 MG DELAYED RELEASE TAB PO SCH (07:55)
[2016-10-07] MEDS: POTASSIUM CHLORIDE 10 MEQ CAP PO SCH (07:55)
[2016-10-07] MEDS: LABETALOL HCL 100 MG TAB PO SCH (07:56)
[2016-10-07] MEDS: FUROSEMIDE 20 MG TAB PO SCH ×2 (07:56→21:22)
[2016-10-07] MEDS: cloNIDine HCL 0.1 MG TAB PO SCH ×3 (07:56→17:02)
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
[2016-10-07] MEDS ORDERED: amLODIPine BESYLATE 5 MG TAB PO SCH (09:00)
[2016-10-07 09:40] LABS: HEMATOCRIT 43.1 % (39.0-51.0); MEAN CELL VOLUME 82.1 FL (80.0-100.0); MEAN CORPUSCULAR HEMOGLOBIN 26.3 PG (27.0-34.0); PLATELET COUNT 265 TH/MM3 (150-450); RED BLOOD COUNT 5.25 MIL/MM3 (4.50-5.90); RED CELL DISTRIBUTION WIDTH 20.6 % (11.6-17.2); WHITE BLOOD COUNT 7.1 TH/MM3 (4.0-11.0)
[2016-10-07] MEDS: methylPREDNISolone SOD SUCC 125 MG/2 ML VIAL IV SCH ×2 (09:43→21:21)
[2016-10-07 09:53] LABS: REVIEW FLAG FINAL
[2016-10-07] MEDS: ENALAPRILAT 1.25 MG/ML VIAL IV PUSH PRN (09:53)
[2016-10-07 09:57] LABS: INTERNATIONAL NORMALIZED RATIO 2.7 RATIO; PROTHROMBIN TIME - PATIENT 31.4 SEC (9.8-11.6)
[2016-10-07 10:05] LABS: BICARBONATE 26.7 MEQ/L (21.0-32.0); POTASSIUM 3.8 MEQ/L (3.5-5.1)
[2016-10-07 10:09] LABS: HDL CHOLESTEROL 46.5 MG/DL (40.0-60.0)
[2016-10-07] MEDS ORDERED: LABETALOL HCL 100 MG TAB PO ONE (12:15)
[2016-10-07] MEDS ORDERED: amLODIPine BESYLATE 5 MG TAB PO ONE (12:15)
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
[2016-10-07] MEDS: WARFARIN SOD 7.5 MG TAB PO SCH (17:02)
--- NOTE | 2016-10-07 17:15 | EKG ---
Date Performed: 10/06/2016 Time Performed: 11:38:16 PTAGE: 65 years EKG: Sinus rhythm WITH FIRST DEGREE AV BLOCK MARKED LEFT AXIS DEVIATION MODERATE INTRAVENTRICULAR CONDUCTION DELAY Lef t anterior fasicular block. ABNORMAL ECG PREVIOUS TRACING : 07/04/2016 13.43 DOCTOR: Jones Cowan Interpretating Date/Time 10/07/2016 17:15:13
[2016-10-07] MEDS: LABETALOL HCL 200 MG TAB PO SCH (21:21)
[2016-10-07] MEDS: ZOLPIDEM TARTRATE 5 MG TAB PO PRN (21:22)
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
[2016-10-08] VITALS (7 sets, daily range): BP systolic 139–170; BP diastolic 83–98; PULSE 71–93; RESP 16–20; TEMP 97.3–98.4; O2SAT 94–98
[2016-10-08] MEDS: ENALAPRILAT 1.25 MG/ML VIAL IV PUSH PRN (02:12)
[2016-10-08] MEDS: CYCLOBENZAPRINE HCL 10 MG TAB PO SCH ×3 (06:40→21:14)
[2016-10-08] MEDS: INSULIN ASPART SUPPLEMENTAL SCALE SQ SCH ×5 (06:40→21:17)
[2016-10-08] MEDS: ACETAMINOPHEN/HYDROcodone 325 MG/10 MG TAB PO PRN ×3 (06:41→21:14)
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
[2016-10-08] MEDS: POTASSIUM CHLORIDE 10 MEQ CAP PO SCH (09:44)
[2016-10-08] MEDS: PANTOPRAZOLE SOD 40 MG DELAYED RELEASE TAB PO SCH (09:44)
[2016-10-08] MEDS: LISINOPRIL 20 MG TAB PO SCH (09:44)
[2016-10-08] MEDS: FUROSEMIDE 20 MG TAB PO SCH ×2 (09:44→21:15)
[2016-10-08] MEDS: PRAVASTATIN SOD 80 MG TAB PO SCH (09:44)
[2016-10-08] MEDS: LABETALOL HCL 200 MG TAB PO SCH ×2 (09:44→21:14)
[2016-10-08] MEDS: cloNIDine HCL 0.1 MG TAB PO SCH ×3 (09:44→17:04)
[2016-10-08] MEDS: AMIODARONE 200 MG TAB PO SCH (09:44)
[2016-10-08] MEDS: methylPREDNISolone SOD SUCC 125 MG/2 ML VIAL IV SCH (09:45)
[2016-10-08] MEDS ORDERED: GLUCAGON 1 MG/ML VIAL OTHER PRN (13:15)
[2016-10-08] MEDS ORDERED: DEXTROSE 50% IN WATER 50 ML VIAL(D50) IV PRN (13:15)
[2016-10-08] MEDS: WARFARIN SOD 7.5 MG TAB PO SCH (17:04)
[2016-10-08] MEDS: INSULIN ASPART 1,000 UNITS/10 ML VIAL SQ SCH (17:10)
[2016-10-08] MEDS ORDERED: INSULIN DETEMIR 100 UNITS/ML VIAL SQ SCH ×2 (21:00)
[2016-10-08] MEDS: ZOLPIDEM TARTRATE 5 MG TAB PO PRN (21:14)
[2016-10-09] VITALS (7 sets, daily range): BP systolic 128–156; BP diastolic 88–95; PULSE 59–74; RESP 16–20; TEMP 97.4–98.4; O2SAT 97–100
[2016-10-09] MEDS: CYCLOBENZAPRINE HCL 10 MG TAB PO SCH ×2 (06:04→11:43)
[2016-10-09] MEDS: ACETAMINOPHEN/HYDROcodone 325 MG/10 MG TAB PO PRN (06:05)
[2016-10-09] MEDS: INSULIN ASPART SUPPLEMENTAL SCALE SQ SCH ×2 (06:09→11:00)
[2016-10-09] MEDS: PANTOPRAZOLE SOD 40 MG DELAYED RELEASE TAB PO SCH (09:01)
[2016-10-09] MEDS: PRAVASTATIN SOD 80 MG TAB PO SCH (09:01)
[2016-10-09] MEDS: AMIODARONE 200 MG TAB PO SCH (09:01)
[2016-10-09] MEDS: LABETALOL HCL 200 MG TAB PO SCH (09:01)
[2016-10-09] MEDS: LISINOPRIL 20 MG TAB PO SCH (09:01)
[2016-10-09] MEDS: cloNIDine HCL 0.1 MG TAB PO SCH ×2 (09:01→11:43)
[2016-10-09] MEDS: POTASSIUM CHLORIDE 10 MEQ CAP PO SCH (09:01)
[2016-10-09] MEDS: FUROSEMIDE 20 MG TAB PO SCH (09:01)
[2016-10-09] MEDS: INSULIN ASPART 1,000 UNITS/10 ML VIAL SQ SCH ×2 (09:10→11:46)
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
[2016-10-09] MEDS ORDERED: NOVOLOGSS SQ (14:42)
[2016-10-09] MEDS ORDERED: AMLO10 PO (14:42)
[2016-10-09] MEDS ORDERED: NOVOLOGP2 SQ (14:42)
[2016-10-09] MEDS ORDERED: LABE200T2 PO (14:42)
[2016-10-09] MEDS ORDERED: CYCL1TAB29 PO (14:42)
--- NOTE | 2016-10-09 14:43 | HHI.DCPOC ---
Discharge Care Plan Diagnosis: (1) hx cauda equina and lumbar surgery (2) Concussion and edema of cervical spinal cord, initial encounter (3) Left arm weakness Your Health Problems Are: Anxiety Difficulty with ADL Goals to Promote Your Health * To prevent worsening of your condition and complications * To maintain your health at the optimal level Directions to Meet Your Goals Take your medications as prescribed Follow your dietary instruction Follow activity as directed Keep your appointments as scheduled Take your immunizations and boosters as scheduled If your symptoms worsen call your PCP, if no PCP go to Urgent Care Center or Emergency Room Smoking is Dangerous to Your Health. Avoid second hand smoke Call the 24-hour hour crisis hotline for domestic abuse at Doretha Arias [facility] Oct 09, 2016 14:42
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
[2016-10-28] MEDS ORDERED: LABE200T2 PO (09:30)
[2016-10-28] MEDS ORDERED: FURO40TA PO (09:30)
[2016-10-28] MEDS ORDERED: CHOL1CAP34 PO (09:30)
[2016-10-28] MEDS ORDERED: ACET1TAB86 PO (09:30)
[2016-10-28] MEDS ORDERED: ZOCO40TA PO (09:30)
[2016-10-28] MEDS ORDERED: FERR325T2 PO (09:30)
[2016-10-28] MEDS ORDERED: TAMS5CAP PO (09:30)
[2016-10-28] MEDS ORDERED: MAGN400S PO (09:30)
[2016-10-28] MEDS ORDERED: COUM5TAB PO (09:30)
[2016-10-28] MEDS ORDERED: NIFE90TA2 PO (09:30)
[2016-10-28] MEDS ORDERED: METO10TA PO (09:30)
[2016-10-28] MEDS ORDERED: CLON.1 PO (09:30)
[2016-10-28] MEDS ORDERED: SENN1TAB PO (09:30)
[2016-10-28] MEDS ORDERED: LEVEMIR SQ (09:30)
[2016-10-28] MEDS ORDERED: POTA10CA PO (09:30)
[2016-10-28] MEDS ORDERED: HYDR-3583 PO (09:30)
[2016-10-28] MEDS ORDERED: NOVOLOGP2 SQ (09:30)
[2016-10-28] MEDS ORDERED: AMIO200T PO (09:30)
[2016-10-28] MEDS ORDERED: PANT40TA3 PO (09:30)
== END 2016-10-09 16:30 | DRG 53 ==
LOC: NEPC 10:55 → NEDA 12:33 → NEPGCP 15:18 → OBSVTOIN 10-07 12:05 → N04A 10-07 18:08
PROVIDERS: ADMIT Specialist; ATTEND Specialist
DX: S14.109A Unspecified injury at unspecified level of cervical spinal cord, initial encounter (principal); M47.22 Other spondylosis with radiculopathy, cervical region; V47.5XXA Car driver injured in collision with fixed or stationary object in traffic accident, initial encounter; Y92.410 Unspecified street and highway as the place of occurrence of the external cause; E11.22 Type 2 diabetes mellitus with diabetic chronic kidney disease; Z79.4 Long term (current) use of insulin; I12.9 Hypertensive chronic kidney disease with stage 1 through stage 4 chronic kidney disease, or unspecified chronic kidney disease; N18.3 Chronic kidney disease, stage 3 (moderate); I48.91 Unspecified atrial fibrillation; Z86.718 Personal history of other venous thrombosis and embolism; Z79.01 Long term (current) use of anticoagulants; Z86.711 Personal history of pulmonary embolism; E78.5 Hyperlipidemia, unspecified; J44.9 Chronic obstructive pulmonary disease, unspecified; F17.210 Nicotine dependence, cigarettes, uncomplicated
CPT/HCPCS: 70450; 70496; 70498; 71010; 72125; 80048; 80061; 80307; 81001; 82435; 82550; 82565; 82947; 82948; 84132; 84295; 84484; 84520; 85025; 85027; 85384; 85610; 85652; 85730; 86140; 86850; 86900; 86901; 93005; 96360; 96372; G0378; G8987-GO; G8987-GP; G8988-GO; G8988-GP; J1815; J2930; J7030; Q9967

== ENCOUNTER 2016-12-06 02:41 | Emergency (ER) | payer MEDICARE, OTHER ==
[~2016-12-06] VITALS: Ht 198.1 cm; Wt 115.0 kg
[~2016-12-06 02:41] MED LIST changes: +ACET1TAB86 PO; +AMIO200T PO; +CHOL1CAP34 PO; +CLON.1 PO; -CLON0.3T PO; -COUM2TAB PO; +COUM5TAB PO; -FERR325T PO; +FERR325T2 PO; -FURO1TAB60 PO; +FURO40TA PO; -GABA600T PO; +HYDR-3583 PO; +LABE200T2 PO; +MAGN400S PO; +METO10TA PO; +NIFE90TA2 PO; +NOVOLOGSS SQ; +POTA10CA PO; +SENN1TAB PO; +TAMS5CAP PO; -TEMA30CA PO
[2016-12-06 02:52] VITALS: BP 175/112; PULSE 100; RESP 15; TEMP 98.1; O2SAT 97
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
[2016-12-06 02:56] VITALS: RESP 15; O2SAT 97
[2016-12-06] MEDS ORDERED: SODIUM CHLORIDE 0.9% FLUSH 10 ML FLUSH IVF PRN (03:00)
[2016-12-06 03:22] LABS: AUTOMATED NEUTROPHIL # 4.3 TH/MM3 (1.8-7.7); BASOPHIL # 0.1 TH/MM3 (0-0.2); BASOPHIL % 1.2 % (0.0-2.0); EOSINOPHIL # 0.1 TH/MM3 (0-0.4); EOSINOPHIL % 2.3 % (0.0-4.0); HEMATOCRIT 43.7 % (39.0-51.0); HEMO FLAGS DIFF FINAL; LYMPHOCYTE # 0.6 TH/MM3 (1.0-4.8); MEAN CORPUSCULAR HEMOGLOBIN 26.5 PG (27.0-34.0); MEAN CORPUSCULAR HGB CONC 31.6 % (32.0-36.0); MONO % 10.6 % (0.0-8.0); NEUT % 74.9 % (16.0-70.0); PLATELET COUNT 295 TH/MM3 (150-450); RED BLOOD COUNT 5.21 MIL/MM3 (4.50-5.90); RED CELL DISTRIBUTION WIDTH 15.6 % (11.6-17.2); WHITE BLOOD COUNT 5.7 TH/MM3 (4.0-11.0)
[2016-12-06 03:38] LABS: BICARBONATE 27.3 MEQ/L (21.0-32.0); POTASSIUM 3.8 MEQ/L (3.5-5.1)
[2016-12-06 10:54] VITALS: BP 136/62
--- NOTE | 2016-12-06 16:49 | EKG ---
Date Performed: 12/06/2016 Time Performed: 03:01:14 PTAGE: 66 years EKG: Sinus rhythm WITH FIRST DEGREE AV BLOCK PATTERN CONSISTENT WITH PULMONARY DISEASE LEFT ANTERIOR FASCICULAR BLOCK ABNORMAL ECG PREVIOUS TRACING : 10/06/2016 11.38 Since previous tracing, no significant change noted DOCTOR: Lauri Stout Interpretating Date/Time 12/06/2016 16:46:49
== END 2016-12-06 11:08 | disposition home or self-care (01) ==
LOC: NEPC 02:41
DX: R53.1 Weakness (principal); I10 Essential (primary) hypertension; I48.91 Unspecified atrial fibrillation; F17.200 Nicotine dependence, unspecified, uncomplicated; J44.9 Chronic obstructive pulmonary disease, unspecified; Z79.01 Long term (current) use of anticoagulants
CPT/HCPCS: 80048; 85025; 93005; 99284

== ENCOUNTER 2016-12-12 15:02 | Inpatient (IN) | payer MEDICARE, OTHER ==
[~2016-12-12] VITALS: Ht 182.9 cm; Wt 118.5 kg
[2016-12-12 15:25] VITALS: BP 180/102; PULSE 90; RESP 18; TEMP 98.1; O2SAT 98
[2016-12-12 15:30] VITALS: BP 167/103; PULSE 64; RESP 18; O2SAT 99
[2016-12-12] MEDS ORDERED: SODIUM CHLORIDE 0.9% FLUSH 10 ML FLUSH IVF PRN (15:30)
--- NOTE | 2016-12-12 15:57 | RADRPT ---
EXAM DATE/TIME: 12/12/2016 15:49 [facility] COMPARISON: CHEST SINGLE AP, October 06, 2016, 11:34. INDICATIONS : Palpitations MEDICAL HISTORY : Hypertension. Chronic obstructive pulmonary disease. Congestive heart SURGICAL HISTORY : None. ENCOUNTER: Initial ACUITY: 1 day PAIN SCORE: 0/10 LOCATION: chest FINDINGS: Slight cardiomegaly seen. There is slight linear atelectasis left mid lung. Focal consolidation is no t seen. CONCLUSION: Slight linear left midlung atelectasis. Marek Bolaños MD on December 12, 2016 at 15:55 Board Certified Radiologist. This report was verified electronically.
[2016-12-12 16:35] LABS: AUTOMATED NEUTROPHIL # 5.6 TH/MM3 (1.8-7.7); BASOPHIL # 0.1 TH/MM3 (0-0.2); EOSINOPHIL # 0.1 TH/MM3 (0-0.4); EOSINOPHIL % 1.7 % (0.0-4.0); HEMATOCRIT 39.5 % (39.0-51.0); HEMO FLAGS DIFF FINAL; LYMPH % 11.1 % (9.0-44.0); LYMPHOCYTE # 0.8 TH/MM3 (1.0-4.8); MEAN CELL VOLUME 85.2 FL (80.0-100.0); MEAN CORPUSCULAR HEMOGLOBIN 27.7 PG (27.0-34.0); MEAN CORPUSCULAR HGB CONC 32.5 % (32.0-36.0); MONO % 10.9 % (0.0-8.0); NEUT % 75.3 % (16.0-70.0); PLATELET COUNT 269 TH/MM3 (150-450); RED BLOOD COUNT 4.64 MIL/MM3 (4.50-5.90); RED CELL DISTRIBUTION WIDTH 16.3 % (11.6-17.2); WHITE BLOOD COUNT 7.5 TH/MM3 (4.0-11.0)
[2016-12-12 16:41] LABS: BACTERIA, URINE MOD /hpf; BLOOD, URINE SMALL (NEG); GLUCOSE,URINE NEG (NEG); KETONE, URINE NEG (NEG); MUCUS URINE FEW /lpf (OCC); NITRITE,URINE NEG (NEG); SQUAMOUS EPITHELIAL CELL URINE <1 /hpf (0-5); URINE COLOR YELLOW (YELLW/STRAW)
[2016-12-12 16:43] LABS: APTT (PATIENT) 31.3 SEC (24.3-30.1); COMMENT (UR) CULTURE INDICATED; CULTURE IF INDICATED CULTURE INDICATED; INTERNATIONAL NORMALIZED RATIO 1.1 RATIO; PROTHROMBIN TIME - PATIENT 12.4 SEC (9.8-11.6)
[2016-12-12 16:45] LABS: ALT (GPT) 23 U/L (12-78)
[2016-12-12 16:48] LABS: ALKALINE PHOSPHATASE 116 U/L (45-117); TOTAL BILIRUBIN ADULT 0.6 MG/DL (0.2-1.0)
[2016-12-12 16:51] LABS: ANION GAP 7 MEQ/L (5-15); AST (GOT) 31 U/L (15-37); BICARBONATE 25.7 MEQ/L (21.0-32.0); BLOOD UREA NITROGEN 14 MG/DL (7-18); CHLORIDE 107 MEQ/L (98-107); GLOMERULAR FILTRATION RATE 75 ML/MIN (>89); POTASSIUM 4.4 MEQ/L (3.5-5.1); SODIUM (NA) 140 MEQ/L (136-145)
[2016-12-12] MEDS ORDERED: cefTRIAXone INJ 1,000 MG in SODIUM CHLORIDE 0.9% INJ 100 ML IV ONE (17:15)
--- NOTE | 2016-12-12 17:21 | RADRPT ---
EXAM DATE/TIME: 12/12/2016 16:50 [facility] COMPARISON: CT BRAIN W/O CONTRAST, October 06, 2016, 11:09. INDICATIONS : Fell hitting right side of head. RADIATION DOSE: 50.05 CTDIvol (mGy) MEDICAL HISTORY : Cardiovascular disease. Hypertension. Deep venous thrombosis. SURGICAL HISTORY : None. ENCOUNTER: Initial ACUITY: 1 day PAIN SCALE: 5/10 LOCATION: Right cranial TECHNIQUE: Multiple contiguous axial images were obtained of the head. Using automated exposure control and adj ustment of the mA and/or kV according to patient size, radiation dose was kept as low as reasonably a chievable to obtain optimal diagnostic quality images. DICOM format image data is available electro nically for review and comparison. FINDINGS: There is no evidence for intracranial hemorrhage, mass effect, mass lesions, or edema. The visualize d bony structures appear intact. Moderate degree of brain atrophy is seen. Moderate periventricular white matter changes are seen nonspecific mostly consistent with chronic small vessel ischemic change s. There are no signs of acute infarction for technique. There is chronic opacification of multiple sinuses. CONCLUSION: Chronic and small vessel ischemic changes without any evidence for acute hemorrhage o r mass effect. Marek Bolaños MD on December 12, 2016 at 17:18 Board Certified Radiologist. This report was verified electronically.
--- NOTE | 2016-12-12 17:26 | RADRPT ---
EXAM DATE/TIME: 12/12/2016 16:50 [facility] COMPARISON: No previous studies available for comparison. INDICATIONS : <<Fell hitting right side of head RADIATION DOSE: <<42.99>> CTDIvol (mGy) MEDICAL HISTORY : Cardiovascular disease. Hypertension. Deep venous thrombosis. SURGICAL HISTORY : None. ENCOUNTER: Initial ACUITY: 1 day PAIN SCALE: 5/10 LOCATION: neck TECHNIQUE: Volumetric scanning of the cervical spine was performed. Multiplanar reconstructions in the sagittal, coronal and oblique axial planes were performed. Using automated exposure control and adjustment o f the mA and/or kV according to patient size, radiation dose was kept as low as reasonably achievable to obtain optimal diagnostic quality images. DICOM format image data is available electronically f or review and comparison. FINDINGS: No evidence of subluxation. No definite fracture is seen for technique. C2-C3: Slight degenerative changes are seen within the disc space and facets. Slight bulging disc and hypert rophic changes are seen with indentation on the thecal sac and no significant compromise to the theca l sac or the exiting nerve roots. C3-C4: Significant degenerative changes are seen within the disc space and facets. Slight to moderate overal l thecal sac stenosis is seen due to central disc/osteophyte complex and hypertrophic changes. There is slight neural foramina compromise bilaterally due to bulging disc and hypertrophic changes. C4-C5: Significant degenerative changes are seen within the disc space and facets. There is moderate neural foramina compromise bilaterally due to bulging disc and hypertrophic changes. Moderate bilateral late ral recess compromise is seen due to hypertrophic changes and bulging disc. Slight bulging disc and h ypertrophic changes are seen with indentation on the thecal sac and no significant compromise to the thecal sac. C5-C6: Moderate degenerative changes are seen within the disc space and facets. There is bulging disc and hy pertrophic change protruding into the left lateral recess without any significant compromise to the e xiting nerve roots. Moderate lateral recess compromise is seen on the right due to hypertrophic weathers es and bulging disc. Slight bulging disc and hypertrophic changes are seen with indentation on the th ecal sac and no significant compromise to the thecal sac. C6-C7: Significant degenerative changes are seen within the disc space and facets. There is moderate neural foramina compromise on the left due to asymmetrical bulging disc and hypertrophic changes. Slight corby ateral lateral recess compromise is seen due to hypertrophic changes and bulging disc. Slight bulging disc and hypertrophic changes are seen with indentation on the thecal sac and no significant comprom ise to the thecal sac. C7-T1: There is no evidence for any significant compromise to the thecal sac, or the exiting nerve roots. N o appreciable thecal sac stenosis is seen. The neural foramina and lateral recess appear patent bila terally. CONCLUSION: 1. Slight to moderate thecal sac stenosis C3-4. 2. Neural foramina compromise and lateral recess compromise at multiple levels without evidence for a cute fracture. Marek Bolaños MD on December 12, 2016 at 17:19 Board Certified Radiologist. This report was verified electronically.
--- NOTE | 2016-12-12 17:29 | RADRPT ---
EXAM DATE/TIME: 12/12/2016 16:50 [facility] COMPARISON: No previous studies available for comparison. INDICATIONS : Fell hitting right side of head. RADIATION DOSE: 56.75 CTDIvol (mGy) MEDICAL HISTORY : Cardiovascular disease. Hypertension. Deep venous thrombosis. SURGICAL HISTORY : None. ENCOUNTER: Initial ACUITY: 1 day PAIN SCORE: 5/10 LOCATION: Right facial TECHNIQUE: Volumetric scanning of the facial bones was performed. Using automated exposure control and adjustme nt of the mA and/or kV according to patient size, radiation dose was kept as low as reasonably achiev able to obtain optimal diagnostic quality images. DICOM format image data is available electronicall y for review and comparison. FINDINGS: No definite fractures, or dislocations are identified. No definite lytic or sclerotic lesion is seen . Soft tissue swelling is identified overlapping the left cheek area. There is sinusitis within multi ple sinuses. CONCLUSION: Soft tissue swelling and no definite fracture for technique. Marek Bolaños MD on December 12, 2016 at 17:24 Board Certified Radiologist. This report was verified electronically.
[2016-12-12] MEDS ORDERED: SENNOSIDES 8.6 MG TAB PO PRN (18:00)
[2016-12-12] MEDS ORDERED: ONDANSETRON HCL 4 MG/2 ML VIAL IVP PRN (18:00)
[2016-12-12] MEDS ORDERED: LACTULOSE SYRUP 20 GM/30 ML CUP PO PRN (18:00)
[2016-12-12] MEDS ORDERED: NALOXONE HCL 0.4 MG/ML AMP IV PRN (18:00)
[2016-12-12] MEDS ORDERED: BISACODYL 10 MG SUPP RECTAL PRN (18:00)
[2016-12-12] MEDS ORDERED: ACETAMINOPHEN 325 MG TAB PO PRN ×2 (18:00→20:15)
[2016-12-12] MEDS ORDERED: MAGNESIUM HYDROXIDE SUSP 30 ML CUP PO PRN ×2 (18:00→20:15)
[2016-12-12] MEDS: HEPARIN SODIUM - SQ 10,000 UNITS/ML VIAL SQ SCH (18:00)
[2016-12-12] MEDS ORDERED: SODIUM CHLORIDE 0.9% FLUSH 10 ML FLUSH IV FLUSH PRN (18:00)
[2016-12-12] MEDS ORDERED: DEXTROSE 50% IN WATER 50 ML VIAL(D50) IV PRN (18:45)
[2016-12-12] MEDS ORDERED: GLUCAGON 1 MG/ML VIAL OTHER PRN (18:45)
--- NOTE | 2016-12-12 18:50 | HHI.PR ---
Subjective Remarks [id number] UTI HTN, unc. accel mild obesity LE wounds generalized weakness DM, inc Objective Objective Results - Vital Signs Date Time Temp Pulse Resp B/P (MAP) Pulse Ox O2 Delivery O2 Flow Rate FiO2 12/12/16 15:30 64 18 167/103 (124) 99 Room Air 12/12/16 15:25 98.1 90 18 180/102 (128) 98 Result Diagram: 12/12/16 1550 12/12/16 1550 Physical Exam Physical Exam PHYSICAL EXAMINATION GENERAL: This is a well-developed, well-nourished male who appears to be in no acute distress. He is alert and awake, []. HEAD: Normocephalic without any lesion or mass noted. Facial features appear symmetric. OROPHARYNGEAL: Oropharynx without erythema or edema. NECK: Supple. No nuchal rigidity or lymphadenopathy. Trachea midline without deviation. CARDIAC: Regular rhythm, regular rate, S1 and S2 are heard. Murmur []; no gallops or rubs. LUNGS: Clear to auscultation bilaterally. [] wheeze, [] rhonchi or [] rale. No use of accessory muscles on inspiration or expiration. ABDOMEN: Soft, nontender, no organomegaly or masses. Bowel sounds are heard in all four quadrants. No rebound. No guarding. EXTREMITIES: [] edema. Pulses equal bilateral. [] cyanosis. NEUROLOGICAL: Patient mood and affect appropriate. No focal deficit SKIN:Warm and moist Vee Yao Dec 12, 2016 18:50
[2016-12-12 19:00] VITALS: BP 166/93; PULSE 96; RESP 18; O2SAT 97
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
[2016-12-12] MEDS: SODIUM CHLOR 0.9% 1000 ML INJ 1,000 ML IV SCH ×2 (19:18→22:37)
[2016-12-12] MEDS ORDERED: LYRI100C PO (19:20)
[2016-12-12] MEDS ORDERED: TERA2CAP3 PO (19:20)
[2016-12-12] MEDS ORDERED: LISI2.5T3 PO (19:20)
[2016-12-12] MEDS ORDERED: TEMA30CA PO (19:20)
[2016-12-12] MEDS ORDERED: COLA100C PO (19:20)
[2016-12-12] MEDS ORDERED: OMEP20TA PO (19:20)
[2016-12-12] MEDS ORDERED: PLAV75TA29 PO (19:20)
--- NOTE | 2016-12-12 19:34 | MH ---
cc: ARIANNA PEDRAZA DATE OF ADMISSION 12/12/2016 DATE OF 1950 CHIEF COMPLAINT Fall and generalized weakness. HISTORY OF THE PRESENT ILLNESS This is a pleasant 66-year-old black male who has, according to him, has progressively become weaker over the last few years. He lives alone, has home health that does assist him but had started a few weeks ago noticing his becoming weaker. He has also been having some falls. He states that he came to the emergency room with the same symptoms approximately a week ago, was treated and released back home and states that he has not gotten any better. He complains of falling today and was so weak that he did not feel like he could get up. He came to the emergency room for further evaluation. The patient had initial labs drawn which included a urine. He was found to have a urinary tract infection. He denies any chest pain, although he had his first positive troponin. He denies any shortness of breath. Unaware of any fever. Denies any headache. On his last fall he did hit his left eye. It is notably red with some tearing. The right eye also has some redness and tearing. The patient does not notice any pain on urination but states that he has frequency and he only urinates a little bit at the time of urination. The patient does have skin tears on his knees that appear fresh, non bleeding. He does have lower extremity wounds, especially on the right lower leg that have dressings that have been changed recently. He states that they were checked and taken care of by home health. PAST MEDICAL HISTORY Medical history: 1. Mildly obese. BMI between 25-29.9. 2. Chronic obstructive pulmonary disease. 3. Lumbar stenosis. 4. Generalized weakness with left arm weakness. 5. Chronic kidney disease with acute kidney injury. 6. History of deep venous thrombosis. 7. History of gastrointestinal bleed. 8. Hypokalemia. 9. Hypotension. 10. Hypoalbuminemia. 11. Coagulopathy. 12. Diabetes mellitus. 13. Anemia. 14. Muscle spasms with chronic pain. 15. Atrial fibrillation. 16. Generalized weakness. PAST SURGICAL HISTORY Surgery history: IVC filter placement. ALLERGIES MRI PRECAUTIONS. SOCIAL HISTORY The patient denies any alcohol. No tobacco. No illicit drugs. He currently lives alone. REVIEW OF SYSTEMS A 12 point review was obtained. Positives noted are his urinary frequency with small amounts of urine with each void. Bilateral erythema of his eyes, left greater than right. Status post multiple falls. Generalized weakness. Any other systems mentioned in the history of present illness, otherwise negative examination. The patient does note BM yesterday on 12/11/2016. PHYSICAL EXAMINATION VITAL SIGNS: Temperature is 98.1, pulse 90 on admission 64 now. Respiratory rate 18. Blood pressure 180/102, 167/103. O2 saturation 99% on room air. GENERAL: Tall, large framed black male, looks to be his stated age resting on a stretcher. He is able to answer simple questions. He is a fair historian. SKIN: Pale mucous membranes. Warm and dry. HEENT: Normocephalic. Possible traumatic bump to his head with fall. No broken skin but mild knot noted at the top of his forehead. He states that he did hit his eye on the last fall, the left eye. I see no broken skin but the eye is very erythematous. Poor dental hygiene. Oral caries and missing teeth. No scleral icterus. No exudate. NECK: Supple. CARDIOVASCULAR: S1-S2. Rhythm is mildly irregular. Possible soft murmur heard but heart sounds are very distant. He has 1-2+ chronic lower leg edema. His feet are warm to touch, I would say a medium warmth to touch. LUNGS: The lung sounds show no wheezing, no rhonchi. He does have decreased breath sounds in the bases. Left base has less breath sounds than the right. ABDOMEN: Round, soft, nontender. Nondistended. Bowel sounds are soft but active. MUSCULOSKELETAL: He can move his extremities on purpose but he is very weak generalized. 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 They are healed. He has some wounds on his right johnson and right lower leg that are covered with dressings, clean, dry and intact. NEUROLOGIC: He is awake. Can answer simple questions. Appears very weak. Fair historian. Speech is fairly clear. PSYCHIATRIC: Appropriate mood and affect. LABORATORY DATA Diagnostic data, WBC count 7.5, red blood cell 4.64, 12.8 hemoglobin, hematocrit 39.5, platelet count 269. Neutrophil count 75.3. Monocyte count 10.9. PT INR is 1.1. Chemistry, sodium is 140, potassium 4.4, chloride 107, carbon dioxide 25.7, anion gap 7, BUN 14, creatinine 1.17. GFR is 75. Random glucose 55. Calcium 8.7. Bilirubin 0.6. Troponin 0.07. Albumin 2.5. Urine shows yellow, hazy urine, pH is 6.0, specific gravity 1.013, protein 300, small amount of occult blood. Negative glucose, ketones, nitrites, bilirubin. Large amount of leukocyte esterase. Many WBC clumps. Culture is indicated. IMAGING Imaging studies showed cervical CT scan with degenerative changes, slight to moderate thecal sac stenosis of C3-C4. A chest x-ray shows slight cardiomegaly, linear scarring and atelectasis of the left mid lung but no focal consolidation seen. Head CT scan chronic and small ischemic changes without any evidence of acute hemorrhage or mass effect. Maxillofacial CT scan soft tissue swelling but no definite fracture. ASSESSMENT AND PLAN 1. Urinary tract infection. 2. Generalized weakness and fatigue and debility. 3. Hypertension, uncontrolled. Mildly accelerated. 4. History of atrial fibrillation. 5. History of chronic kidney disease. 6. Diabetes mellitus, uncontrolled. 7. Mild obesity. 8. Anemia. 9. Bilateral conjunctivitis. Our plan is to admit. The patient can have vital signs every two hours and as warranted. We will start him on IV Rocephin for his urinary tract infection and monitor urinary outpatient and intake. Bowel regimen with stool softeners and laxatives as needed. Deep venous thrombosis prophylaxis with heparin. Sequential compression devices to be placed on him. O2. Troponins to rule out any type of cardiac event, even though the patient states that he has not had any chest pain. We will place him on monitoring and/or telemetry. O2 at 2 liters as needed. Accu-Chek before meals and bedtime with sliding scale insulin. Hypo and hyperglycemia protocol. We will give him an 1800 calorie ADA diet. Consult wound care for their expert opinion for his lower extremity wound. We will start him on some antibiotic eye drops and monitor for possible conjunctivitis. We will continue to monitor his needs. To my knowledge he is full code, full aggressive care. Dictated by: ADRIAN Xie Arianna Pedraza MD JP/GARY /6:31 PM /6:50 PM pt's evaluation done as above [facility] ER PA chart reviewed jesus murop about plan of care jesus rn CHANCE
[2016-12-12 20:03] VITALS: O2SAT 96
[2016-12-12] MEDS ORDERED: PREGABALIN 100 MG CAP PO PRN (20:15)
[2016-12-12] MEDS ORDERED: PILL SPLITTER OTHER PRN (20:30)
[2016-12-12] MEDS: SODIUM CHLORIDE 0.9% FLUSH 10 ML FLUSH IV FLUSH SCH (21:00)
[2016-12-12] MEDS: INSULIN ASPART SUPPLEMENTAL SCALE SQ SCH (21:00)
--- NOTE | 2016-12-12 21:39 | EKG ---
Date Performed: 12/12/2016 Time Performed: 17:54:48 PTAGE: 66 years EKG: Sinus rhythm LEFT ANTERIOR FASCICULAR BLOCK NONSPECIFIC T-WAVE ABNORMALITY NONSPECIFIC INTRAVENTRICULAR CONDUCTIO N DELAY ABNORMAL ECG NO PREVIOUS TRACING DOCTOR: Larry Mcdonald Interpretating Date/Time 12/12/2016 21:37:15
[2016-12-12] MEDS: TEMAZEPAM 15 MG CAP PO SCH (22:34)
[2016-12-12] MEDS: PANTOPRAZOLE SOD 20 MG DELAYED RELEASE TAB PO SCH (22:35)
[2016-12-12] MEDS: METOCLOPRAMIDE HCL 10 MG TAB PO SCH (22:35)
[2016-12-12] MEDS: DOCUSATE SODIUM 50 MG/SENNA 8.6 MG TAB PO SCH (22:35)
[2016-12-12] MEDS: TERAZOSIN HCL 1 MG CAP PO SCH (22:36)
[2016-12-12] MEDS: TOBRAMYCIN SULF 0.3% OPHT SOLN 5 ML BTL EACH EYE SCH (22:37)
[2016-12-12] MEDS: LABETALOL HCL 200 MG TAB PO SCH (22:37)
[2016-12-13] VITALS (10 sets, daily range): BP systolic 120–164; BP diastolic 70–104; PULSE 83–98; RESP 16–18; TEMP 98–99.5; O2SAT 96–97
[2016-12-13 04:35] LABS: INTERNATIONAL NORMALIZED RATIO 1.1 RATIO; PROTHROMBIN TIME - PATIENT 12.1 SEC (9.8-11.6)
[2016-12-13 05:18] LABS: BICARBONATE 29.4 MEQ/L (21.0-32.0); POTASSIUM 3.9 MEQ/L (3.5-5.1)
[2016-12-13] MEDS: TOBRAMYCIN SULF 0.3% OPHT SOLN 5 ML BTL EACH EYE SCH ×4 (06:06→19:19)
[2016-12-13] MEDS: METOCLOPRAMIDE HCL 10 MG TAB PO SCH ×4 (06:06→22:21)
[2016-12-13] MEDS: HEPARIN SODIUM - SQ 10,000 UNITS/ML VIAL SQ SCH ×2 (06:06→19:17)
[2016-12-13] MEDS: INSULIN ASPART SUPPLEMENTAL SCALE SQ SCH ×4 (06:11→22:20)
[2016-12-13] MEDS ORDERED: INSULIN DETEMIR 100 UNITS/ML VIAL SQ SCH (08:00)
[2016-12-13] MEDS: INSULIN ASPART 1,000 UNITS/10 ML VIAL SQ SCH ×3 (08:00→17:00)
[2016-12-13] MEDS: SODIUM CHLORIDE 0.9% FLUSH 10 ML FLUSH IV FLUSH SCH ×2 (08:44→21:00)
[2016-12-13] MEDS: DOCUSATE SODIUM 100 MG CAP PO SCH (08:47)
[2016-12-13] MEDS: PANTOPRAZOLE SOD 20 MG DELAYED RELEASE TAB PO SCH ×2 (08:47→22:21)
[2016-12-13] MEDS: LISINOPRIL 5 MG TAB PO SCH (08:47)
[2016-12-13] MEDS: FERROUS SULFATE 325 MG (65 MG ELEMENTAL IRON) TAB PO SCH (08:47)
[2016-12-13] MEDS: DOCUSATE SODIUM 50 MG/SENNA 8.6 MG TAB PO SCH ×2 (08:47→22:21)
[2016-12-13] MEDS: POTASSIUM CHLORIDE 10 MEQ CAP PO SCH (08:48)
[2016-12-13] MEDS: LABETALOL HCL 200 MG TAB PO SCH ×2 (08:49→22:21)
[2016-12-13] MEDS: FUROSEMIDE 40 MG TAB PO SCH ×3 (08:49→19:17)
[2016-12-13] MEDS: CLOPIDOGREL 75 MG TAB PO SCH (08:50)
[2016-12-13] MEDS: AMIODARONE 200 MG TAB PO SCH (08:50)
[2016-12-13] MEDS ORDERED: ERGOCALCIFEROL (VIT D2) 50,000 UNIT CAP PO SCH (09:00)
[2016-12-13] MEDS: SODIUM CHLOR 0.9% 1000 ML INJ 1,000 ML IV SCH (09:06)
--- NOTE | 2016-12-13 09:40 | HHI.PR ---
Subjective Remarks Resting in the bed Alert oriented no acute pain Generalized weakness (Vee Yao) Objective Objective Results - Vital Signs Date Time Temp Pulse Resp B/P (MAP) Pulse Ox O2 Delivery O2 Flow Rate FiO2 12/13/16 08:40 21 12/13/16 07:48 98.3 94 16 146/97 (113) 97 12/13/16 05:27 99.5 91 18 120/70 (87) 96 12/13/16 01:06 98.0 98 18 158/89 (112) 97 12/12/16 21:05 12/12/16 20:03 96 12/12/16 19:00 96 18 166/93 (117) 97 Room Air 12/12/16 15:30 64 18 167/103 (124) 99 Room Air 12/12/16 15:25 98.1 90 18 180/102 (128) 98 I/O 12/12/16 12/12/16 12/12/16 12/13/16 12/13/16 12/13/16 07:00 15:00 23:00 07:00 15:00 23:00 Intake Total 300 ml 200 ml Balance 300 ml 200 ml Intake Oral 200 ml 200 ml IV Total 100 ml (Vee Yao) Result Diagram: 12/12/16 1550 12/13/16 0338 ROS General: Fatigue, Weakness, Other (10 point ROS done positives noted) /SPECIFICATION WRITER: Dysuria (mild current UTI) Skin: Other (lower extremity wounds especially with right leg and both knees, pending when care consult) (Vee Yao) Physical Exam Physical Exam PHYSICAL EXAMINATION GENERAL: This is a well-developed mild obese elderly male who appears to be in no acute distress. He is alert and awake, HEAD: Normocephalic, small closed knot over left eyebrow, fore head, failed yesterday and hit left side of head and left thigh Both eyes are mildly draining ordered antibiotic drops for possible bilateral eye conjunctivitis OROPHARYNGEAL: Oropharynx dry NECK: Supple. Trachea midline without deviation. CARDIAC: Regular rhythm, regular rate, S1 and S2 are heard. LUNGS: Clear to auscultation bilaterally. No use of accessory muscles on inspiration or expiration. ABDOMEN: Soft, nontender, no organomegaly or masses. Bowel sounds are heard in all four quadrants. No rebound. No guarding. EXTREMITIES: No lower extremity edema. 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 accel Uncontrolled initially on admission but now Controlled medical management, continue to monitor mild obesity Large boned tall man, lives alone, has some mild debility, will get physical therapy to evaluate his needs, out of bed, ambulate LE wounds When care to evaluate and treat lower extremity wounds, a has home health who comes out to see him at home, to nurse that he has not walked in 3 weeks. Physical therapy to evaluate generalized weakness Probable secondary to some debility and UTI DM, inc Initially blood sugar was 55, currently hold long-acting insulin and treat Accu-Cheks and sliding scale for now. Spoke with nurse and instructed to call if blood sugars start climbing out of control, 250 or greater R/O CAD, positive troponins Patient's not having any chest pain but has 3 elevated cardiac enzymes and does have weakness. Cardiology consult for their expert opinion and any further testing needed. History of some kidney disease but currently, BUN and creatinine labs are not elevated Anemia Probable secondary to chronic disease, no obvious bleeding noted continue to monitor his labs Discussed with patient Discussed with nurse Discussed with Dr. arreguin, seen on his behalf Discharge planning will probably need SNF, possible rehabilitation, patient is reaching the point that he is unable to care for himself (Vee Yao) Assessment and Plan pt is seen & Examined d/w PT d/w vee camacho w above see orders will f/u (Dina Arreguin MD) Vee Yao Dec 13, 2016 09:40 Dina Arreguin MD Dec 13, 2016 13:32
[2016-12-13] MEDS: NIFEdipine 90 MG SUSTAINED RELEASE TAB PO SCH (12:14)
[2016-12-13] MEDS: WARFARIN SOD 5 MG TAB PO SCH (19:18)
[2016-12-13] MEDS: cefTRIAXone INJ 1,000 MG in SODIUM CHLORIDE 0.9% INJ 100 ML IV SCH (19:18)
[2016-12-13] MEDS: TEMAZEPAM 15 MG CAP PO SCH (22:20)
[2016-12-13] MEDS: TERAZOSIN HCL 1 MG CAP PO SCH (22:21)
[2016-12-14] VITALS (9 sets, daily range): BP systolic 137–152; BP diastolic 82–95; PULSE 84–98; RESP 16–24; TEMP 97.8–98.9; O2SAT 96–97
[2016-12-14] MEDS: TOBRAMYCIN SULF 0.3% OPHT SOLN 5 ML BTL EACH EYE SCH ×4 (01:29→17:15)
[2016-12-14] MEDS: SODIUM CHLOR 0.9% 1000 ML INJ 1,000 ML IV SCH (04:54)
[2016-12-14] MEDS: METOCLOPRAMIDE HCL 10 MG TAB PO SCH ×4 (06:04→21:51)
[2016-12-14] MEDS: HEPARIN SODIUM - SQ 10,000 UNITS/ML VIAL SQ SCH ×2 (06:05→17:15)
[2016-12-14] MEDS: INSULIN ASPART SUPPLEMENTAL SCALE SQ SCH ×4 (06:06→21:00)
[2016-12-14] MEDS: LISINOPRIL 5 MG TAB PO SCH (07:52)
[2016-12-14] MEDS: LABETALOL HCL 200 MG TAB PO SCH ×2 (07:52→21:51)
[2016-12-14] MEDS: CLOPIDOGREL 75 MG TAB PO SCH (07:53)
[2016-12-14] MEDS: PANTOPRAZOLE SOD 20 MG DELAYED RELEASE TAB PO SCH ×2 (07:53→21:52)
[2016-12-14] MEDS: AMIODARONE 200 MG TAB PO SCH (07:53)
[2016-12-14] MEDS: DOCUSATE SODIUM 100 MG CAP PO SCH (07:53)
[2016-12-14] MEDS: NIFEdipine 90 MG SUSTAINED RELEASE TAB PO SCH (07:53)
[2016-12-14] MEDS: FERROUS SULFATE 325 MG (65 MG ELEMENTAL IRON) TAB PO SCH (07:54)
[2016-12-14] MEDS: SODIUM CHLORIDE 0.9% FLUSH 10 ML FLUSH IV FLUSH SCH ×2 (07:54→21:52)
[2016-12-14] MEDS: POTASSIUM CHLORIDE 10 MEQ CAP PO SCH (07:54)
[2016-12-14] MEDS: FUROSEMIDE 40 MG TAB PO SCH ×3 (07:57→17:14)
[2016-12-14] MEDS: DOCUSATE SODIUM 50 MG/SENNA 8.6 MG TAB PO SCH ×2 (08:00→21:00)
[2016-12-14] MEDS: INSULIN ASPART 1,000 UNITS/10 ML VIAL SQ SCH ×3 (08:00→18:23)
--- NOTE | 2016-12-14 09:36 | PD.CARD.PN ---
Subjective Subjective Remarks continues to feel weak. no chest pain, sob or palpitations. Objective Medications Current Medications Medications (Trade) Dose Ordered Sig/Phyllis Route Start Time Stop Time Status Last Admin Sodium Chloride 1,000 ml @ 75 mls/hr [id number] IV 12/12/16 17:52 12/14/16 04:54 (NS Flush) 2 ml UNSCH PRN IV FLUSH 12/12/16 18:00 (NS Flush) 2 ml BID IV FLUSH 12/12/16 21:00 12/13/16 08:44 (Tylenol) 650 mg Q4H PRN PO 12/12/16 18:00 (Zofran Inj) 4 mg Q6H PRN IVP 12/12/16 18:00 (Heparin Inj) 5,000 units Q12H SQ 12/12/16 18:00 12/14/16 06:05 (Narcan Inj) 0.4 mg UNSCH PRN IV 12/12/16 18:00 (Leeanne-Colace) 1 tab BID PO 12/12/16 21:00 12/14/16 08:00 (Milk Of Magnesia Liq) 30 ml Q12H PRN PO 12/12/16 18:00 (Senokot) 17.2 mg Q12H PRN PO 12/12/16 18:00 (Dulcolax Supp) 10 mg DAILY PRN RECTAL 12/12/16 18:00 (Lactulose Liq) 30 ml DAILY PRN PO 12/12/16 18:00 Ceftriaxone Sodium 1000 mg/ Sodium Chloride 100 ml @ 200 mls/hr Q24H IV 12/13/16 18:00 12/13/16 19:18 (D50w (Vial) Inj) 50 ml UNSCH PRN IV 12/12/16 18:45 (Glucagon Inj) 1 mg UNSCH PRN OTHER 12/12/16 18:45 (NovoLOG SUPPLEMENTAL SCALE) 1 ACHS SLIDING SCALE SQ 12/12/16 21:00 12/13/16 20:08 (Tobrex 0.3% Opth Soln) 1 drop Q6HR EACH EYE 12/12/16 20:00 12/14/16 06:05 (Tylenol) 650 mg Q4H PRN PO 12/12/16 20:15 (Cordarone) 200 mg DAILY PO 12/13/16 09:00 12/14/16 07:53 (Plavix) 75 mg DAILY PO 12/13/16 09:00 12/14/16 07:53 (Colace) 100 mg DAILY PO 12/13/16 09:00 12/14/16 07:53 (Lasix) 40 mg TID PO 12/13/16 09:00 12/14/16 07:57 (NovoLOG INJ) 5 units TIDAC SQ 12/13/16 08:00 (Trandate) 200 mg BID PO 12/12/16 21:00 12/14/16 07:52 (Milk Of Magnesia Liq) 30 ml Q12H PRN PO 12/12/16 20:15 (Reglan) 10 mg ACHS PO 12/12/16 21:00 12/14/16 06:04 (Procardia Xl) 90 mg DAILY PO 12/13/16 09:00 12/14/16 07:53 (KCl) 10 meq DAILY PO 12/13/16 09:00 12/14/16 07:54 (Lyrica) 100 mg TID PRN PO 12/12/16 20:15 (Restoril) 30 mg HS PO 12/12/16 21:00 12/13/16 22:20 (Hytrin) 2 mg HS PO 12/12/16 21:00 12/13/16 22:21 (Coumadin) 5 mg DAILY@16 PO 12/13/16 16:00 12/13/16 19:18 (Drisdol) 50,000 units WEEKLY PO 12/13/16 09:00 (Ferrous Sulfate) 325 mg DAILY PO 12/13/16 09:00 12/14/16 07:54 (Prinivil) 2.5 mg DAILY PO 12/13/16 09:00 12/14/16 07:52 (Protonix) 20 mg BID PO 12/12/16 21:00 12/14/16 07:53 (Pill Splitter) 1 ea UNSCH PRN OTHER 12/12/16 20:30 Vital Signs / I&O Vital Signs Date Time Temp Pulse Resp B/P (MAP) Pulse Ox O2 Delivery O2 Flow Rate FiO2 12/14/16 07:14 97.9 85 24 144/95 (111) 96 12/14/16 06:18 97 21 12/14/16 04:00 84 12/14/16 03:34 97.8 90 18 152/88 (109) 96 12/14/16 00:05 96 12/13/16 23:35 98.6 97 18 156/92 (113) 97 12/13/16 20:53 93 12/13/16 20:00 96 12/13/16 18:11 98.6 92 16 122/79 (93) 97 12/13/16 13:41 98.0 83 16 164/104 (124) 97 12/13/16 12:00 89 I/O 12/13/16 12/13/16 12/13/16 12/14/16 12/14/16 12/14/16 07:00 15:00 23:00 07:00 15:00 23:00 Intake Total 200 ml Balance 200 ml Intake Oral 200 ml Physical Exam GENERAL: SKIN: Warm and dry. HEAD: Atraumatic. Normocephalic. EYES: Pupils equal and round. ENT: No nasal bleeding or discharge. t. NECK: Trachea midline. No JVD. CARDIOVASCULAR: Regular rate and rhythm. no murmur RESPIRATORY: No accessory muscle use. Clear to auscultation. Breath sounds equal bilaterally. GASTROINTESTINAL: Abdomen soft, non-tender, nondistended. MUSCULOSKELETAL: Extremities without clubbing, cyanosis, or edema. No obvious deformities. NEUROLOGICAL: Awake and alert. No obvious cranial nerve deficits. Normal speech. PSYCHIATRIC: Appropriate mood and affect; insight and judgment normal. Laboratory Laboratory Tests Test 12/12/16 15:50 12/13/16 03:38 White Blood Count 7.5 TH/MM3 Red Blood Count 4.64 MIL/MM3 Hemoglobin 12.8 GM/DL Hematocrit 39.5 % Mean Corpuscular Volume 85.2 FL Mean Corpuscular Hemoglobin 27.7 PG Mean Corpuscular Hemoglobin Concent 32.5 % Red Cell Distribution Width 16.3 % Platelet Count 269 TH/MM3 Mean Platelet Volume 9.5 FL Neutrophils (%) (Auto) 75.3 % Lymphocytes (%) (Auto) 11.1 % Monocytes (%) (Auto) 10.9 % Eosinophils (%) (Auto) 1.7 % Basophils (%) (Auto) 1.0 % Neutrophils # (Auto) 5.6 TH/MM3 Lymphocytes # (Auto) 0.8 TH/MM3 Monocytes # (Auto) 0.8 TH/MM3 Eosinophils # (Auto) 0.1 TH/MM3 Basophils # (Auto) 0.1 TH/MM3 CBC Comment DIFF FINAL Differential Comment Activated Partial Thromboplast Time 31.3 SEC Urine Color YELLOW Urine Turbidity HAZY Urine pH 6.0 Urine Specific [place] 1.013 Urine Protein 300 mg/dL Urine Glucose (UA) NEG mg/dL Urine Ketones NEG mg/dL Urine Occult Blood SMALL Urine Nitrite NEG Urine Bilirubin NEG Urine Urobilinogen 2.0 MG/DL Urine Leukocyte Esterase LARGE Urine RBC 1 /hpf Urine WBC /hpf Urine WBC Clumps MANY Urine Squamous Epithelial Cells <1 /hpf Urine Bacteria MOD /hpf Urine Mucus FEW /lpf Microscopic Urinalysis Comment CULTURE INDICATED Blood Urea Nitrogen 14 MG/DL 14 MG/DL Creatinine 1.17 MG/DL 1.19 MG/DL Random Glucose 55 MG/DL 139 MG/DL Total Protein 7.0 GM/DL Albumin 2.5 GM/DL Calcium Level 8.7 MG/DL 8.7 MG/DL Alkaline Phosphatase 116 U/L Aspartate Amino Transf (AST/SGOT) 31 U/L Alanine Aminotransferase (ALT/SGPT) 23 U/L Total Bilirubin 0.6 MG/DL Sodium Level 140 MEQ/L 142 MEQ/L Potassium Level 4.4 MEQ/L 3.9 MEQ/L Chloride Level 107 MEQ/L 108 MEQ/L Carbon Dioxide Level 25.7 MEQ/L 29.4 MEQ/L B-Type Natriuretic Peptide 72 PG/ML Prothrombin Time 12.1 SEC Prothromb Time International Ratio 1.1 RATIO Anion Gap 5 MEQ/L Estimat Glomerular Filtration Rate 74 ML/MIN Troponin I 0.17 NG/ML Assessment and Plan Problem List: (1) HTN (hypertension) ICD Codes: I10 - Hypertension Status: Chronic (2) Elevated troponin ICD Codes: R74.8 - Abnormal levels of other serum enzymes Status: Acute (3) Generalized weakness ICD Codes: R53.1 - Weakness Status: Acute Assessment and Plan 66 yo AAM with HTN, DMII, anemia, history of DVT admitted for generalized weakness and elevated troponin. elevated troponin- review of tele shows no concerning arrhythmias, echo and holter pending. no chest pain history of DVT- continues on warfarin, plavix, and heparin. INR 1.1 Lynne Cheatham Dec 14, 2016 09:36
--- NOTE | 2016-12-14 09:55 | HHI.PR ---
Subjective Subjective Remarks no cp no sob still weak has very little support at home no fever going for STT (Doretha Arias) Review of Systems Constitutional Constitutional Remarks 12 point ros completed, negative except as noted above (Doretha Arias) Vitals/Results Vital Signs Vital Signs Date Time Temp Pulse Resp B/P (MAP) Pulse Ox O2 Delivery O2 Flow Rate FiO2 12/14/16 07:14 97.9 85 24 144/95 (111) 96 12/14/16 06:18 97 21 12/14/16 04:00 84 12/14/16 03:34 97.8 90 18 152/88 (109) 96 12/14/16 00:05 96 12/13/16 23:35 98.6 97 18 156/92 (113) 97 12/13/16 20:53 93 12/13/16 20:00 96 12/13/16 18:11 98.6 92 16 122/79 (93) 97 12/13/16 13:41 98.0 83 16 164/104 (124) 97 12/13/16 12:00 89 (Doretha Arias) CBC/BMP: 12/12/16 1550 12/13/16 0338 Physical Exam General General Appearance: Well Developed, No Acute Distress, Comfortable (Doretha Arias) Eyes Eye Exam: Pupils Equal, Pupils Reactive (Doretha Arias) Ears & Nose Ears & Nose Exam: Nasal Mucosa [place] (Doretha Arias) Throat Throat Exam: Oral Mucosa [place] & Moist (Doretha Arias) Neck Neck Exam: Neck Supple, Trachea Midline (Doretha Arias) Pulmonary Resp Exam: Breath Sounds Equal (Doretha Arias) Cardiology CV Exam: Irregular, Arrhythmia (Doretha Arias) Gastrointestinal/Abdomen GI Exam: Soft, Non-Tender, Bowel Sounds Present, Non-Distended (Doretha Arias) Musculoskeletal MS Exam: Joints Intact (Doretha Arias) Integumentary Skin Exam: Warm, Dry (Doretha Arias) Extremeties Extremities Exam: Pedal Pulses Palpable, Moderate Edema Extremeties Remarks chronic ulcerated areas bilat chins (Doretha Arias) Neurologic Neuro Exam: Alert, Awake, Oriented, Speech Clear, Moving All Extremities, No Focal Deficits (Doretha Arias) Psychiatric Psych Exam: Appropriate Responses (Doretha Arias) VTE Prophylaxis VTE Prophylaxis Meds: Coumadin (Doretha Arias) Assessment/Plan Assessment/Plan A/P Weakness, deconditioned -PT -CM for dc planning, eventually will need LTC UTI -continue Abx, culture ecoli HTN, uncontrolled -better, continue home meds Chronic leg wounds Peripheral edema -continue Laxis -Wound care consult DM, labile latest blood sugars up to 400s -resume Levemir 30 units SQ q HS, will inc. as tolerated -continue accuchecks with ISS -continue with premeal insulin Elevated trop -going for STT, f/u results -appreciate card input afib -continue Coumadin -continue Amiodarone -telemetry monitoring subtherapeutic INR -continue Heparin to bridge Coumadin -INR daily CKD III -renal fx stable Anemia, sec. CKD -monitor CBC CM consult for DC planning, HHC, PT may need SNF will follow up on results STT poss dc tomorrow Discussed with patient Discussed with nurse Discussed with Dr. Arreguin This patient was seen by myself and Dr. Arreguin, this note is written on his behalf (Doretha Arias) Assessment/Plan ASSESSMENT ) UTI ) Elevated trop ?? sig ) Hx P A-fib , currently in SR ) HTN (hypertension) ) DM (diabetes mellitus) ) hX PAD ) ch leg Ulcers stable ) CKD (chronic kidney disease) stage 3, GFR 30-59 ml/min ) Chronic pain ) Lumbar stenosis ) Cervical radiculopathy ) HX Concussion and edema of cervical spinal cord, ) COPD (chronic obstructive pulmonary disease) ) Impaired mobility and activities of daily living ) History of inferior vena caval filter placement Patient was seen and examined discussed with patient Discussed with Doretha Patient meets inpatient criteria/due to multiple comorbid condition need for control of his infection And adjust his meds. Expected length of stay is about 3 or 4 days possible DC to SNF WHEN stable Discussed w case reviewer Domi Harris inpatient. (Dina Arreguin MD) Doretha Arias Dec 14, 2016 09:55 Dina Arreguin MD Dec 14, 2016 11:18
--- NOTE | 2016-12-14 09:55 | HHI.FF ---
Face to Face Verification Diagnosis: (1) Generalized weakness (2) Impaired mobility and activities of daily living (3) HTN (hypertension) (4) Elevated troponin (5) A-fib Physical Therapy Order: Evaluate and Treat Occupational Therapy Order: Evaluate and Treat Home Health Nursing Order: Medical education Signs/symptoms of disease process Nursing assessment with vital signs Railway Engineer Order: To Evaluate: Living conditions/environment, Support services Order: To Provide: Long range planning, Community services I have seen patient Hao Castillo on 12/14/16. My clinical findings support the need for the requested home health care services because: Deconditioned w/ increased weakness Need for psychosocial assistance I certify that my clinical findings support that this patient is homebound because: Impaired cognitive ability/safety Unsteady gait/balance Unsafe to leave home unassisted Doretha AriasP Dec 14, 2016 09:55
[2016-12-14] MEDS ORDERED: REGADENOSON INJ 0.4 MG/5 ML SYR ONE (10:00)
[2016-12-14 13:30] LABS: BICARBONATE 27.7 MEQ/L (21.0-32.0); POTASSIUM 4.1 MEQ/L (3.5-5.1)
--- NOTE | 2016-12-14 15:04 | ECHRPT ---
Indication: cardiomyopathy CONCLUSIONS The left ventricular systolic function is low normal with an estimated ejection fraction in the rang e of 50- 55%. Normal left ventricular size. Mild concentric left ventricular hypertrophy. Bgeis-yz-[id number] mitral valve regurgitation. There is mild tricuspid valve regurgitation. The pulmonary valve is not well visualized. BP: / HR: Rhythm: MEASUREMENTS (Male / Female) Normal Values Technical Quality:Technically difficult study 2D ECHO LV Diastolic Diameter PLAX 5.4 cm 4.2 - 5.9 / 3.9 - 5.3 cm LV Systolic Diameter PLAX 4.7 cm IVS Diastolic Thickness 1.5 cm 0.6 - 1.0 / 0.6 - 0.9 cm LVPW Diastolic Thickness 1.6 cm 0.6 - 1.0 / 0.6 - 0.9 cm LV Relative Wall Thickness 0.6 RV Internal Dim ED PLAX 3.7 cm M-MODE Aortic Root Diameter MM 4.2 cm LA Systolic Diameter MM 4.4 cm LA Ao Ratio MM 1.0 AV Cusp Separation MM 2.5 cm DOPPLER Mitral E Point Velocity 39.5 cm/s Mitral A Point Velocity 66.1 cm/s Mitral E to A Ratio 0.6 LV E' Lateral Velocity 5.6 cm/s Mitral E to LV E' Lateral Ratio 7.1 LV E' Septal Velocity 4.3 cm/s Mitral E to LV E' Septal Ratio 9.2 TR Peak Velocity 166.0 cm/s TR Peak Gradient 11.0 mmHg FINDINGS LEFT VENTRICLE The left ventricular systolic function is low normal with an estimated ejection fraction in the rang e of 50- 55%. Normal left ventricular size. Mild concentric left ventricular hypertrophy. RIGHT VENTRICLE Normal right ventricular size and systolic function. LEFT ATRIUM The left atrial size is normal. RIGHT ATRIUM The right atrial size is normal. ATRIAL SEPTUM Normal atrial septal thickness without atrial level shunting by limited color doppler interrogation. AORTA The aortic root and proximal ascending aorta are normal in size on limited imaging. MITRAL VALVE Structurally normal mitral valve. Odgsc-on-rgfc mitral valve regurgitation. AORTIC VALVE Trileaflet aortic valve. No aortic valve stenosis or regurgitation. TRICUSPID VALVE Structurally normal tricuspid valve. There is mild tricuspid valve regurgitation. PULMONARY VALVE The pulmonary valve is not well visualized. VESSELS The inferior vena cava is normal in size. PERICARDIUM No pericardial effusion. Amilcar Reyes MD, FACC (Electronically Signed) Final Date:14 December 2016 15:04
[2016-12-14] MEDS: WARFARIN SOD 5 MG TAB PO SCH (17:14)
[2016-12-14] MEDS: cefTRIAXone INJ 1,000 MG in SODIUM CHLORIDE 0.9% INJ 100 ML IV SCH (17:15)
--- NOTE | 2016-12-14 17:38 | RADRPT ---
EXAM DATE/TIME: 12/13/2016 15:00 [facility] COMPARISON: No previous studies available for comparison. INDICATIONS : Angina. Atrial fibrillation. Congestive heart failure. DOSE: 30.6 mCi Tc99m Myoview at stress. 30.1 mCi Tc99m Myoview at rest. 0.4 mg Lexiscan STRESS SYMPTOMS: None noted. EJECTION FRACTION: 42% MEDICAL HISTORY : Hypertension. SURGICAL HISTORY : Inguinal hernia repair. ENCOUNTER: Initial ACUITY: 1 day PAIN SCALE: 3/10 LOCATION: Bilateral chest TECHNIQUE: The patient underwent pharmacologic stress with infusion of prescribed dose. Continuous ECG tracing was monitored during stress. Gated SPECT imaging was performed after stress and conventional SPECT i maging was performed at rest. The examination was performed on a SPECT/CT scanner, both attenuation and non-corrected datasets were reviewed. FINDINGS: DISTRIBUTION: The maximum perfused segment at stress is in the infralateral wall. PERFUSION STUDY: The pattern of perfusion at stress is within normal limits. No reversible defects observed. GATED STUDY: There is hypokinesia involving the inferoseptal wall. The remaining wall motion appears good. CONCLUSION: No reversible defects observed to suggest acute ischemia. RISK CATEGORY: Low Uriel Moulton Jr., MD on December 14, 2016 at 17:31 Board Certified Radiologist. This report was verified electronically.
[2016-12-14] MEDS: TEMAZEPAM 15 MG CAP PO SCH (21:51)
[2016-12-14] MEDS: TERAZOSIN HCL 1 MG CAP PO SCH (21:52)
[2016-12-14] MEDS: INSULIN DETEMIR 100 UNITS/ML VIAL SQ SCH (22:12)
[2016-12-15] VITALS (7 sets, daily range): BP systolic 141–155; BP diastolic 89–99; PULSE 87–100; RESP 18–20; TEMP 97.3–98.9; O2SAT 94–98
[2016-12-15 04:51] LABS: HEMATOCRIT 36.4 % (39.0-51.0); MEAN CELL VOLUME 85.4 FL (80.0-100.0); MEAN CORPUSCULAR HEMOGLOBIN 27.5 PG (27.0-34.0); MEAN CORPUSCULAR HGB CONC 32.2 % (32.0-36.0); PLATELET COUNT 230 TH/MM3 (150-450); RED BLOOD COUNT 4.26 MIL/MM3 (4.50-5.90); RED CELL DISTRIBUTION WIDTH 16.3 % (11.6-17.2); REVIEW FLAG FINAL; WHITE BLOOD COUNT 7.1 TH/MM3 (4.0-11.0)
[2016-12-15 05:08] LABS: PROTHROMBIN TIME - PATIENT 11.5 SEC (9.8-11.6)
[2016-12-15 05:17] LABS: BICARBONATE 28.1 MEQ/L (21.0-32.0); POTASSIUM 3.5 MEQ/L (3.5-5.1)
[2016-12-15] MEDS: TOBRAMYCIN SULF 0.3% OPHT SOLN 5 ML BTL EACH EYE SCH ×5 (06:00→23:25)
[2016-12-15] MEDS: METOCLOPRAMIDE HCL 10 MG TAB PO SCH ×4 (06:04→21:06)
[2016-12-15] MEDS: INSULIN ASPART SUPPLEMENTAL SCALE SQ SCH ×4 (06:04→21:00)
[2016-12-15] MEDS: HEPARIN SODIUM - SQ 10,000 UNITS/ML VIAL SQ SCH (06:04)
[2016-12-15] MEDS: SODIUM CHLORIDE 0.9% FLUSH 10 ML FLUSH IV FLUSH SCH ×2 (07:21→21:07)
[2016-12-15] MEDS: LABETALOL HCL 200 MG TAB PO SCH ×2 (07:57→21:06)
[2016-12-15] MEDS: DOCUSATE SODIUM 50 MG/SENNA 8.6 MG TAB PO SCH ×2 (07:57→21:06)
[2016-12-15] MEDS: AMIODARONE 200 MG TAB PO SCH (07:57)
[2016-12-15] MEDS: FERROUS SULFATE 325 MG (65 MG ELEMENTAL IRON) TAB PO SCH (07:57)
[2016-12-15] MEDS: PANTOPRAZOLE SOD 20 MG DELAYED RELEASE TAB PO SCH ×2 (07:58→21:06)
[2016-12-15] MEDS: LISINOPRIL 5 MG TAB PO SCH (07:58)
[2016-12-15] MEDS: DOCUSATE SODIUM 100 MG CAP PO SCH (07:58)
[2016-12-15] MEDS: CLOPIDOGREL 75 MG TAB PO SCH (07:59)
[2016-12-15] MEDS: NIFEdipine 90 MG SUSTAINED RELEASE TAB PO SCH (07:59)
[2016-12-15] MEDS: POTASSIUM CHLORIDE 10 MEQ CAP PO SCH (07:59)
[2016-12-15] MEDS: FUROSEMIDE 40 MG TAB PO SCH ×3 (08:02→17:09)
[2016-12-15] MEDS: INSULIN ASPART 1,000 UNITS/10 ML VIAL SQ SCH ×3 (08:07→17:19)
--- NOTE | 2016-12-15 08:41 | PD.CARD.PN ---
Subjective Subjective Remarks improved energy and "feeling better". no chest pain, sob or palpitations. Objective Medications Current Medications Medications (Trade) Dose Ordered Sig/Phyllis Route Start Time Stop Time Status Last Admin (NS Flush) 2 ml UNSCH PRN IV FLUSH 12/12/16 18:00 (NS Flush) 2 ml BID IV FLUSH 12/12/16 21:00 12/15/16 07:21 (Tylenol) 650 mg Q4H PRN PO 12/12/16 18:00 (Zofran Inj) 4 mg Q6H PRN IVP 12/12/16 18:00 (Heparin Inj) 5,000 units Q12H SQ 12/12/16 18:00 12/15/16 06:04 (Narcan Inj) 0.4 mg UNSCH PRN IV 12/12/16 18:00 (Leeanne-Colace) 1 tab BID PO 12/12/16 21:00 12/15/16 07:57 (Milk Of Magnesia Liq) 30 ml Q12H PRN PO 12/12/16 18:00 (Senokot) 17.2 mg Q12H PRN PO 12/12/16 18:00 (Dulcolax Supp) 10 mg DAILY PRN RECTAL 12/12/16 18:00 (Lactulose Liq) 30 ml DAILY PRN PO 12/12/16 18:00 Ceftriaxone Sodium 1000 mg/ Sodium Chloride 100 ml @ 200 mls/hr Q24H IV 12/13/16 18:00 12/14/16 17:15 (D50w (Vial) Inj) 50 ml UNSCH PRN IV 12/12/16 18:45 (Glucagon Inj) 1 mg UNSCH PRN OTHER 12/12/16 18:45 (NovoLOG SUPPLEMENTAL SCALE) 1 ACHS SLIDING SCALE SQ 12/12/16 21:00 12/14/16 18:22 (Tobrex 0.3% Opth Soln) 1 drop Q6HR EACH EYE 12/12/16 20:00 12/15/16 06:00 (Tylenol) 650 mg Q4H PRN PO 12/12/16 20:15 (Cordarone) 200 mg DAILY PO 12/13/16 09:00 12/15/16 07:57 (Plavix) 75 mg DAILY PO 12/13/16 09:00 12/15/16 07:59 (Colace) 100 mg DAILY PO 12/13/16 09:00 12/15/16 07:58 (Lasix) 40 mg TID PO 12/13/16 09:00 12/15/16 08:02 (NovoLOG INJ) 5 units TIDAC SQ 12/13/16 08:00 12/15/16 08:07 (Trandate) 200 mg BID PO 12/12/16 21:00 12/15/16 07:57 (Milk Of Magnriddhi Liq) 30 ml Q12H PRN PO 12/12/16 20:15 (Reglan) 10 mg ACHS PO 12/12/16 21:00 12/15/16 06:04 (Procardia Xl) 90 mg DAILY PO 12/13/16 09:00 12/15/16 07:59 (KCl) 10 meq DAILY PO 12/13/16 09:00 12/15/16 07:59 (Lyrica) 100 mg TID PRN PO 12/12/16 20:15 (Restoril) 30 mg HS PO 12/12/16 21:00 12/14/16 21:51 (Hytrin) 2 mg HS PO 12/12/16 21:00 12/14/16 21:52 (Coumadin) 5 mg DAILY@16 PO 12/13/16 16:00 12/14/16 17:14 (Drisdol) 50,000 units WEEKLY PO 12/13/16 09:00 (Ferrous Sulfate) 325 mg DAILY PO 12/13/16 09:00 12/15/16 07:57 (Prinivil) 2.5 mg DAILY PO 12/13/16 09:00 12/15/16 07:58 (Protonix) 20 mg BID PO 12/12/16 21:00 12/15/16 07:58 (Pill Splitter) 1 ea UNSCH PRN OTHER 12/12/16 20:30 (Levemir Inj) 30 units HS SQ 12/14/16 21:00 12/14/16 22:12 (Pneumovax-23 Inj) 25 mcg ONCE ONCE IM 12/15/16 10:00 12/15/16 10:01 Vital Signs / I&O Vital Signs Date Time Temp Pulse Resp B/P (MAP) Pulse Ox O2 Delivery O2 Flow Rate FiO2 12/15/16 04:00 97.9 93 18 141/89 (106) 94 12/15/16 04:00 98.0 88 18 152/92 (112) 97 12/14/16 20:00 98.9 98 18 138/91 (107) 97 12/14/16 20:00 94 12/14/16 15:16 98.6 93 16 137/82 (100) 97 12/14/16 11:45 86 12/14/16 11:36 97.8 88 16 137/86 (103) 97 I/O 12/14/16 12/14/16 12/14/16 12/15/16 12/15/16 12/15/16 07:00 15:00 23:00 07:00 15:00 23:00 Intake Total 575 ml 100 ml Output Total 300 ml Balance 575 ml 100 ml -300 ml IV Total 575 ml 100 ml Output Urine Total 300 ml # Bowel Movements 2 Physical Exam SKIN: Warm and dry. HEAD: Atraumatic. Normocephalic. EYES: Pupils equal and round. ENT: No nasal bleeding or discharge. NECK: Trachea midline. No JVD. CARDIOVASCULAR: Regular rate and rhythm. no murmur RESPIRATORY: No accessory muscle use. Clear to auscultation. Breath sounds equal bilaterally. GASTROINTESTINAL: Abdomen soft, non-tender, nondistended. MUSCULOSKELETAL: Extremities without clubbing, cyanosis, or edema. No obvious deformities. NEUROLOGICAL: Awake and alert. No obvious cranial nerve deficits. Normal speech. PSYCHIATRIC: Appropriate mood and affect; insight and judgment normal. Laboratory Laboratory Tests Test 12/14/16 12:25 12/15/16 04:28 Prothrombin Time 11.0 SEC 11.5 SEC Prothromb Time International Ratio 1.0 RATIO 1.0 RATIO Blood Urea Nitrogen 16 MG/DL 17 MG/DL Creatinine 1.36 MG/DL 1.29 MG/DL Random Glucose 220 MG/DL 109 MG/DL Calcium Level 8.9 MG/DL 9.1 MG/DL Sodium Level 141 MEQ/L 142 MEQ/L Potassium Level 4.1 MEQ/L 3.5 MEQ/L Chloride Level 105 MEQ/L 104 MEQ/L Carbon Dioxide Level 27.7 MEQ/L 28.1 MEQ/L Anion Gap 8 MEQ/L 10 MEQ/L Estimat Glomerular Filtration Rate 63 ML/MIN 67 ML/MIN White Blood Count 7.1 TH/MM3 Red Blood Count 4.26 MIL/MM3 Hemoglobin 11.7 GM/DL Hematocrit 36.4 % Mean Corpuscular Volume 85.4 FL Mean Corpuscular Hemoglobin 27.5 PG Mean Corpuscular Hemoglobin Concent 32.2 % Red Cell Distribution Width 16.3 % Platelet Count 230 TH/MM3 Mean Platelet Volume 9.0 FL Assessment and Plan Problem List: (1) HTN (hypertension) ICD Codes: I10 - Hypertension Status: Chronic (2) Elevated troponin ICD Codes: R74.8 - Abnormal levels of other serum enzymes Status: Acute (3) Generalized weakness ICD Codes: R53.1 - Weakness Status: Acute Assessment and Plan 66 yo AAM with HTN, DMII, anemia, history of DVT admitted for generalized weakness and elevated troponin. lexiscan shows no ischemia. echo EF 50%. review of tele shows no arrhythmias. paroxysmal afib/ history of DVT- currently in NSR. continues on warfarin, plavix , and heparin. INR 1.0, sub-therapeutic. will sign off, contact with questions. Lynne Cheatham Dec 15, 2016 08:41
--- NOTE | 2016-12-15 09:01 | HHI.PR ---
Subjective Subjective Remarks less weak no cp no sob tele SR afebrile d/w pt about need for help and rehab, he's agreeable Review of Systems Constitutional Constitutional Remarks 12 point ros completed, negative except as noted above Vitals/Results Vital Signs Vital Signs Date Time Temp Pulse Resp B/P (MAP) Pulse Ox O2 Delivery O2 Flow Rate FiO2 12/15/16 04:00 97.9 93 18 141/89 (106) 94 12/15/16 04:00 98.0 88 18 152/92 (112) 97 12/14/16 20:00 98.9 98 18 138/91 (107) 97 12/14/16 20:00 94 12/14/16 15:16 98.6 93 16 137/82 (100) 97 12/14/16 11:45 86 12/14/16 11:36 97.8 88 16 137/86 (103) 97 CBC/BMP: 12/15/16 0428 12/15/16 0428 Lab Results Laboratory Tests Test 12/14/16 12:25 12/15/16 04:28 Prothrombin Time 11.0 SEC 11.5 SEC Prothromb Time International Ratio 1.0 RATIO 1.0 RATIO Blood Urea Nitrogen 16 MG/DL 17 MG/DL Creatinine 1.36 MG/DL 1.29 MG/DL Random Glucose 220 MG/DL 109 MG/DL Calcium Level 8.9 MG/DL 9.1 MG/DL Sodium Level 141 MEQ/L 142 MEQ/L Potassium Level 4.1 MEQ/L 3.5 MEQ/L Chloride Level 105 MEQ/L 104 MEQ/L Carbon Dioxide Level 27.7 MEQ/L 28.1 MEQ/L Anion Gap 8 MEQ/L 10 MEQ/L Estimat Glomerular Filtration Rate 63 ML/MIN 67 ML/MIN White Blood Count 7.1 TH/MM3 Red Blood Count 4.26 MIL/MM3 Hemoglobin 11.7 GM/DL Hematocrit 36.4 % Mean Corpuscular Volume 85.4 FL Mean Corpuscular Hemoglobin 27.5 PG Mean Corpuscular Hemoglobin Concent 32.2 % Red Cell Distribution Width 16.3 % Platelet Count 230 TH/MM3 Mean Platelet Volume 9.0 FL Physical Exam General General Appearance: Well Developed, No Acute Distress, Comfortable Eyes Eye Exam: Pupils Equal, Pupils Reactive Ears & Nose Ears & Nose Exam: Nasal Mucosa [place] Throat Throat Exam: Oral Mucosa [place] & Moist Neck Neck Exam: Neck Supple, Trachea Midline Pulmonary Resp Exam: Breath Sounds Equal Cardiology CV Exam: Irregular, Arrhythmia Gastrointestinal/Abdomen GI Exam: Soft, Non-Tender, Bowel Sounds Present, Non-Distended Musculoskeletal MS Exam: Joints Intact Integumentary Skin Exam: Warm, Dry Extremeties Extremities Exam: Pedal Pulses Palpable, Moderate Edema Extremeties Remarks chronic ulcerated areas bilat chins Neurologic Neuro Exam: Alert, Awake, Oriented, Speech Clear, Moving All Extremities, No Focal Deficits Psychiatric Psych Exam: Appropriate Responses VTE Prophylaxis VTE Prophylaxis Meds: Coumadin Assessment/Plan Assessment/Plan A/P Weakness, deconditioned -PT -OOB with assist, agreeable with SNF UTI -continue Abx, culture ecoli -change to PO abx HTN, uncontrolled -better, continue home meds Chronic leg wounds Peripheral edema -continue Lasix -Wound care consult DM, labile morning blood glucose 112 -continue with Levemir 30 units SQ q HS, will inc. as tolerated -continue accuchecks with ISS -continue with premeal insulin -d/w RN, pt. needs to have tray on time Elevated trop -STT 12/14 no ischemia, EF 50% -appreciate card input afib -continue Coumadin -continue Amiodarone -telemetry monitoring subtherapeutic INR -change to Lovenox to bridge Coumadin -INR daily CKD III -renal fx stable Anemia, sec. CKD -monitor CBC stable for dc no cp needs rehab, pt. agreeable CM consult for SNF placement Discharge when arrangements made Discussed with patient Discussed with nurse Discussed with Dr. Arreguin Discussed with CM This patient was seen by myself and Dr. Arreguin, this note is written on his behalf ASSESSMENT ) UTI ) Elevated trop ?? sig ) Hx P A-fib , currently in SR ) HTN (hypertension) ) DM (diabetes mellitus) ) hX PAD ) ch leg Ulcers stable ) CKD (chronic kidney disease) stage 3, GFR 30-59 ml/min ) Chronic pain ) Lumbar stenosis ) Cervical radiculopathy ) HX Concussion and edema of cervical spinal cord, ) COPD (chronic obstructive pulmonary disease) ) Impaired mobility and activities of daily living ) History of inferior vena caval filter placement Patient was seen and examined discussed with patient Discussed with Doretha Patient meets inpatient criteria/due to multiple comorbid condition need for control of his infection And adjust his meds. Expected length of stay is about 3 or 4 days possible DC to SNF WHEN stable Discussed w pillowcase cleaner Domi Harris inpatient. Discharge Minutes: 45 Doretha Arias Dec 15, 2016 09:01
[2016-12-15] MEDS ORDERED: LEVEMIR SQ (09:06)
--- NOTE | 2016-12-15 09:06 | HHI.DCPOC ---
Discharge Care Plan Diagnosis: (1) Impaired mobility and activities of daily living (2) A-fib (3) HTN (hypertension) (4) Generalized weakness (5) UTI (urinary tract infection) (6) Elevated troponin Your Health Problems Are: Anxiety Difficulty with ADL Chest Pain Goals to Promote Your Health * To prevent worsening of your condition and complications * To maintain your health at the optimal level Directions to Meet Your Goals Take your medications as prescribed Follow your dietary instruction Follow activity as directed Keep your appointments as scheduled Take your immunizations and boosters as scheduled If your symptoms worsen call your PCP, if no PCP go to Urgent Care Center or Emergency Room Smoking is Dangerous to Your Health. Avoid second hand smoke Call the 24-hour hour crisis hotline for domestic abuse at Doretha Arias Dec 15, 2016 09:06
[2016-12-15] MEDS ORDERED: ENOX120P SQ (09:09)
[2016-12-15] MEDS ORDERED: PNEUMOCOCCAL POLYVALENT INJ 25 MCG/0.5 ML SYR IM ONE (10:00)
[2016-12-15] MEDS ORDERED: ENOXAPARIN SODIUM 120 MG/0.8 ML SYRINGE SQ SCH (10:00)
--- NOTE | 2016-12-15 13:39 | PD.WCN.NOT ---
Wound Consult Description: Three R anterior johnson ulcers and R knee skin tear. Communicated with: NEEL fair and Doretha Arias [facility]. Recommendation: Please cleansed R anterior johnson ulcers and R knee skin tear with normal saline or wound cleanser and apply Xeroform in single layer just over wound beds. Cover with dry 4x4 gauze pads Secure with stockinette, or rolled gauze and tape. Change dressing every other day or PRN if saturated or dislodged. Additional Information: Patient seen on [address] [place] [address] for evaluation of LLE wound management. Patient has no wounds to LLE. LLE is noted with hard pitting edema that appears to have improved. R anterior johnson is noted with 3 shallow ulcers. Largest ulcer measures 1 x 1.4 x ~<0.1cm. Ulcers are noted with pink tissue and yellow crust. Wound drainage is scant and serous without odor.Periwound is unremarkable.Patient also has R knee skin tear that is partial thickness and has no active drainage or odor. Just below skin tear is a deflated bulla measuring ~3cm x ~4 cm.With minimal active serous drainage. RLE also noted with hard non pitting edema that has improved since admission. Cleansed all open wounds with normal saline and applied Xeroform in single layer just over wound beds and covered with dry 4x4 gauze pads. Secured dressing to anterior johnson with rolled gauze and tape. Secured R knee dressing with paper tape. Lashae Martinez [facility] Dec 15, 2016 13:39
[2016-12-15] MEDS: WARFARIN SOD 5 MG TAB PO SCH (17:10)
[2016-12-15] MEDS: TERAZOSIN HCL 1 MG CAP PO SCH (21:06)
[2016-12-15] MEDS: TEMAZEPAM 15 MG CAP PO SCH (21:06)
[2016-12-15] MEDS: CEFUROXIME AXETIL 250 MG TAB PO SCH (21:06)
[2016-12-15] MEDS: INSULIN DETEMIR 100 UNITS/ML VIAL SQ SCH (21:11)
[2016-12-16] VITALS (8 sets, daily range): BP systolic 132–155; BP diastolic 84–94; PULSE 83–98; RESP 18–20; TEMP 78.2–98.8; O2SAT 94–97
[2016-12-16] MEDS: METOCLOPRAMIDE HCL 10 MG TAB PO SCH ×4 (05:55→20:29)
[2016-12-16] MEDS: TOBRAMYCIN SULF 0.3% OPHT SOLN 5 ML BTL EACH EYE SCH ×3 (05:55→16:55)
[2016-12-16] MEDS: INSULIN ASPART SUPPLEMENTAL SCALE SQ SCH ×4 (06:10→20:29)
[2016-12-16 08:27] LABS: MEAN CELL VOLUME 85.8 FL (80.0-100.0); MEAN CORPUSCULAR HEMOGLOBIN 27.5 PG (27.0-34.0); MEAN CORPUSCULAR HGB CONC 32.1 % (32.0-36.0); PLATELET COUNT 236 TH/MM3 (150-450); RED BLOOD COUNT 4.31 MIL/MM3 (4.50-5.90); RED CELL DISTRIBUTION WIDTH 16.3 % (11.6-17.2); WHITE BLOOD COUNT 7.4 TH/MM3 (4.0-11.0)
[2016-12-16] MEDS: PANTOPRAZOLE SOD 20 MG DELAYED RELEASE TAB PO SCH ×2 (08:29→20:29)
[2016-12-16] MEDS: FUROSEMIDE 40 MG TAB PO SCH ×3 (08:29→16:55)
[2016-12-16] MEDS: CEFUROXIME AXETIL 250 MG TAB PO SCH ×2 (08:30→20:29)
[2016-12-16] MEDS: CLOPIDOGREL 75 MG TAB PO SCH (08:30)
[2016-12-16] MEDS: LISINOPRIL 5 MG TAB PO SCH (08:30)
[2016-12-16] MEDS: LABETALOL HCL 200 MG TAB PO SCH ×2 (08:30→20:29)
[2016-12-16] MEDS: DOCUSATE SODIUM 50 MG/SENNA 8.6 MG TAB PO SCH ×2 (08:30→20:28)
[2016-12-16] MEDS: FERROUS SULFATE 325 MG (65 MG ELEMENTAL IRON) TAB PO SCH (08:30)
[2016-12-16] MEDS: AMIODARONE 200 MG TAB PO SCH (08:30)
[2016-12-16] MEDS: DOCUSATE SODIUM 100 MG CAP PO SCH (08:30)
[2016-12-16] MEDS: ENOXAPARIN SODIUM 100 MG/ML SYRINGE SQ SCH (08:31)
[2016-12-16] MEDS: NIFEdipine 90 MG SUSTAINED RELEASE TAB PO SCH (08:31)
[2016-12-16] MEDS: SODIUM CHLORIDE 0.9% FLUSH 10 ML FLUSH IV FLUSH SCH ×2 (08:31→20:30)
[2016-12-16] MEDS: POTASSIUM CHLORIDE 10 MEQ CAP PO SCH (08:31)
[2016-12-16 08:37] LABS: PROTHROMBIN TIME - PATIENT 11.4 SEC (9.8-11.6); REVIEW FLAG FINAL
[2016-12-16] MEDS: INSULIN ASPART 1,000 UNITS/10 ML VIAL SQ SCH ×3 (08:41→16:52)
--- NOTE | 2016-12-16 11:25 | HHI.PR ---
Subjective Subjective Remarks less weak but requiring 3 person assist to transfer to chair no cp no sob tele SR afebrile Review of Systems Constitutional Constitutional Remarks 12 point ros completed, negative except as noted above Vitals/Results Vital Signs Vital Signs Date Time Temp Pulse Resp B/P (MAP) Pulse Ox O2 Delivery O2 Flow Rate FiO2 12/16/16 08:00 78.2 88 20 155/94 (114) 95 12/16/16 04:00 97.6 96 18 141/86 (104) 94 12/16/16 00:00 97.9 95 18 136/85 (102) 94 12/15/16 20:13 100 12/15/16 20:00 98.6 97 20 154/89 (110) 96 12/15/16 16:00 98.2 87 20 149/89 (109) 98 12/15/16 12:14 98.9 88 20 150/92 (111) 98 CBC/BMP: 12/16/16 0720 12/15/16 0428 Lab Results Laboratory Tests Test 12/16/16 07:20 White Blood Count 7.4 TH/MM3 Red Blood Count 4.31 MIL/MM3 Hemoglobin 11.9 GM/DL Hematocrit 37.0 % Mean Corpuscular Volume 85.8 FL Mean Corpuscular Hemoglobin 27.5 PG Mean Corpuscular Hemoglobin Concent 32.1 % Red Cell Distribution Width 16.3 % Platelet Count 236 TH/MM3 Mean Platelet Volume 9.4 FL Prothrombin Time 11.4 SEC Prothromb Time International Ratio 1.0 RATIO Physical Exam General General Appearance: Well Developed, No Acute Distress, Comfortable Eyes Eye Exam: Pupils Equal, Pupils Reactive Ears & Nose Ears & Nose Exam: Nasal Mucosa [place] Throat Throat Exam: Oral Mucosa [place] & Moist Neck Neck Exam: Neck Supple, Trachea Midline Pulmonary Resp Exam: Breath Sounds Equal Cardiology CV Exam: Irregular, Arrhythmia Gastrointestinal/Abdomen GI Exam: Soft, Non-Tender, Bowel Sounds Present, Non-Distended Musculoskeletal MS Exam: Joints Intact Integumentary Skin Exam: Warm, Dry Extremeties Extremities Exam: Pedal Pulses Palpable, Moderate Edema Extremeties Remarks chronic ulcerated areas bilat chins Neurologic Neuro Exam: Alert, Awake, Oriented, Speech Clear, Moving All Extremities, No Focal Deficits Psychiatric Psych Exam: Appropriate Responses VTE Prophylaxis VTE Prophylaxis Meds: Coumadin Assessment/Plan Assessment/Plan A/P Weakness, deconditioned -PT -OOB with assist UTI -continue Abx, culture ecoli -continue with PO abx HTN, uncontrolled -better, continue home meds Chronic leg wounds Peripheral edema -continue Lasix -Wound care consult DM, labile glucose okay -continue with Levemir 30 units SQ q HS, will inc. as tolerated -continue accuchecks with ISS -continue with premeal insulin Elevated trop -STT 12/14 no ischemia, EF 50% -appreciate card input afib -continue Coumadin -continue Amiodarone -telemetry monitoring subtherapeutic INR -Continue Lovenox to bridge Coumadin -INR daily CKD III -renal fx stable Anemia, sec. CKD -monitor CBC stable for dc no cp needs rehab, pt. agreeable pt. not safe to go home, multiple comorbidities, unsteady requires 3 person assist. CM consult for SNF placement Discharge when arrangements made Discussed with patient Discussed with nurse Discussed with Dr. Arreguin Discussed with CM This patient was seen by myself and Dr. Arreguin, this note is written on his behalf ASSESSMENT ) UTI ) Elevated trop ?? sig ) Hx P A-fib , currently in SR ) HTN (hypertension) ) DM (diabetes mellitus) ) hX PAD ) ch leg Ulcers stable ) CKD (chronic kidney disease) stage 3, GFR 30-59 ml/min ) Chronic pain ) Lumbar stenosis ) Cervical radiculopathy ) HX Concussion and edema of cervical spinal cord, ) COPD (chronic obstructive pulmonary disease) ) Impaired mobility and activities of daily living ) History of inferior vena caval filter placement Patient was seen and examined discussed with patient Discussed with Doretha Patient meets inpatient criteria/due to multiple comorbid condition need for control of his infection And adjust his meds. Expected length of stay is about 3 or 4 days possible DC to SNF WHEN stable Discussed w piano case maker Domi Harris inpatient. Doretha Arias [facility] Dec 16, 2016 11:25
--- NOTE | 2016-12-16 11:47 | HM ---
Date Performed: 12/15/2016 Time Performed: 11:01:00 HOOKUP DATE: 12/15/16 11:01:00 AM Wed ANALYSIS START TIME: 12/15/2016 11:06:00 AM ANALYSIS END TIME: 12/16/2016 8:18:38 AM PATIENT AGE: 66 PATIENT HEIGHT PATIENT WEIGHT DRUG LIST PATIENT DIAGNOSIS: weakness TEST NARRATIVE: The patient's average heart rate was 92 BPM. No episodes of tachycardia wer e noted. No episodes of bradycardia were noted. No pauses exceeding 2.0 seconds were noted. 892 ventricular ectopics, which represented 1% of the total beat count, were noted. The highest vent ricular ectopic frequency occurred from 05:00 AM to 06:00 AM Ivet. During this time 62 VE(s) occurred . Ventricular ectopics were observed as 874 isolated beat(s), as 7 couplet(s) and as 1 run(s). Some of the ventricular beats occurred in bigeminal cycles. 5 supraventricular ectopics, which repres ented < 1% of the total beat count, were noted. The highest supraventricular ectopic frequency occur red from 08:00 PM to 09:00 PM Wed. During this time 4 SVE(s) occurred. No episodes of ST depress ion (defined as -1.0 mm or more) were noted in channel 1. No episodes of ST depression (defined as - 1.0 mm or more) were noted in channel 2. No episodes of ST depression (defined as -1.0 mm or more) w ere noted in channel 3. NO DIARY MAINTAINED TEST INTERPRETATION: The underlying rhythm is Sinus rhythm . One 4 beat run of what appears to be atrial tachycardia is recorded. One 4 beat run of a wide comp tian tachycardia is seen, the morphology of which is suggestive of aberrantly conducted supraventricul ar tachycardia, though nonsustained ventricular tachycardia cannot be ruled out. No sustained arrhyt hmias are noted. Signed by : Larry Mcdonald
[2016-12-16] MEDS ORDERED: WARFARIN SOD 10 MG TAB PO SCH (16:00)
[2016-12-16] MEDS ORDERED: WARFARIN SOD 7.5 MG TAB PO SCH (16:00)
[2016-12-16] MEDS: TEMAZEPAM 15 MG CAP PO SCH (20:28)
[2016-12-16] MEDS: TERAZOSIN HCL 1 MG CAP PO SCH (20:29)
[2016-12-16] MEDS: INSULIN DETEMIR 100 UNITS/ML VIAL SQ SCH (20:32)
[2016-12-17] VITALS: BP 158/92; PULSE 87; RESP 20; TEMP 97.6; O2SAT 94
[2016-12-17] MEDS: TOBRAMYCIN SULF 0.3% OPHT SOLN 5 ML BTL EACH EYE SCH ×2 (00:16→05:25)
[2016-12-17 04:00] VITALS: BP 134/82; PULSE 78; RESP 18; TEMP 97.9; O2SAT 94
[2016-12-17] MEDS: METOCLOPRAMIDE HCL 10 MG TAB PO SCH (05:25)
[2016-12-17] MEDS: INSULIN ASPART SUPPLEMENTAL SCALE SQ SCH (06:10)
[2016-12-17 08:00] VITALS: BP 154/93; PULSE 103; RESP 20; TEMP 97.5; O2SAT 94
[2016-12-17] MEDS: SODIUM CHLORIDE 0.9% FLUSH 10 ML FLUSH IV FLUSH SCH (08:18)
[2016-12-17] MEDS: CEFUROXIME AXETIL 250 MG TAB PO SCH (08:19)
[2016-12-17] MEDS: FUROSEMIDE 40 MG TAB PO SCH (08:19)
[2016-12-17] MEDS: CLOPIDOGREL 75 MG TAB PO SCH (08:19)
[2016-12-17] MEDS: DOCUSATE SODIUM 50 MG/SENNA 8.6 MG TAB PO SCH (08:19)
[2016-12-17] MEDS: DOCUSATE SODIUM 100 MG CAP PO SCH (08:19)
[2016-12-17] MEDS: AMIODARONE 200 MG TAB PO SCH (08:19)
[2016-12-17] MEDS: FERROUS SULFATE 325 MG (65 MG ELEMENTAL IRON) TAB PO SCH (08:20)
[2016-12-17] MEDS: LISINOPRIL 5 MG TAB PO SCH (08:20)
[2016-12-17] MEDS: POTASSIUM CHLORIDE 10 MEQ CAP PO SCH (08:20)
[2016-12-17] MEDS: PANTOPRAZOLE SOD 20 MG DELAYED RELEASE TAB PO SCH (08:20)
[2016-12-17] MEDS: LABETALOL HCL 200 MG TAB PO SCH (08:20)
[2016-12-17] MEDS: INSULIN ASPART 1,000 UNITS/10 ML VIAL SQ SCH (08:33)
[2016-12-17] MEDS: NIFEdipine 90 MG SUSTAINED RELEASE TAB PO SCH (08:34)
[2016-12-17] MEDS: ENOXAPARIN SODIUM 100 MG/ML SYRINGE SQ SCH (09:16)
--- NOTE | 2016-12-17 09:20 | HHI.PR ---
Subjective Subjective Remarks sitting up in bed feeding himself no complaints no acute findings overnight Review of Systems Constitutional Constitutional Remarks 12 point ros completed, negative except as noted above Vitals/Results Vital Signs Vital Signs Date Time Temp Pulse Resp B/P (MAP) Pulse Ox O2 Delivery O2 Flow Rate FiO2 12/17/16 04:00 97.9 78 18 134/82 (99) 94 12/17/16 04:00 Room Air 12/17/16 00:00 97.6 87 20 158/92 (114) 94 12/17/16 00:00 Room Air 12/16/16 20:17 98 12/16/16 20:00 98.8 96 20 141/90 (107) 97 12/16/16 16:00 98.3 86 18 138/91 (107) 97 12/16/16 12:00 98.3 89 18 132/84 (100) 97 CBC/BMP: 12/16/16 0720 12/15/16 0428 Physical Exam General General Appearance: Well Developed, No Acute Distress, Comfortable Eyes Eye Exam: Pupils Equal, Pupils Reactive Ears & Nose Ears & Nose Exam: Nasal Mucosa [place] Throat Throat Exam: Oral Mucosa [place] & Moist Neck Neck Exam: Neck Supple, Trachea Midline Pulmonary Resp Exam: Breath Sounds Equal Cardiology CV Exam: Irregular, Arrhythmia Gastrointestinal/Abdomen GI Exam: Soft, Non-Tender, Bowel Sounds Present, Non-Distended Musculoskeletal MS Exam: Joints Intact Integumentary Skin Exam: Warm, Dry Extremeties Extremities Exam: Pedal Pulses Palpable, Moderate Edema Extremeties Remarks chronic ulcerated areas bilat chins Neurologic Neuro Exam: Alert, Awake, Oriented, Speech Clear, Moving All Extremities, No Focal Deficits Psychiatric Psych Exam: Appropriate Responses VTE Prophylaxis VTE Prophylaxis Meds: Coumadin Assessment/Plan Assessment/Plan A/P Weakness, deconditioned -PT -OOB with assist UTI -continue Abx, culture ecoli -continue with PO abx HTN, uncontrolled -better, continue home meds Chronic leg wounds Peripheral edema -continue Lasix -Wound care consult DM, labile glucose okay -continue with Levemir 30 units SQ q HS, will inc. as tolerated -continue accuchecks with ISS -continue with premeal insulin Elevated trop -STT 12/14 no ischemia, EF 50% -appreciate card input afib -continue Coumadin -continue Amiodarone -telemetry monitoring subtherapeutic INR -Continue Lovenox to bridge Coumadin -INR daily CKD III -renal fx stable Anemia, sec. CKD -monitor CBC stable for dc no cp needs rehab, pt. agreeable pt. not safe to go home, multiple comorbidities, unsteady requires 3 person assist. CM consult for SNF placement Discharge when arrangements made Discussed with patient Discussed with nurse Discussed with Dr. Arreguin Discussed with CM This patient was seen by myself and Dr. Arreguin, this note is written on his behalf ASSESSMENT ) UTI ) Elevated trop ?? sig ) Hx P A-fib , currently in SR ) HTN (hypertension) ) DM (diabetes mellitus) ) hX PAD ) ch leg Ulcers stable ) CKD (chronic kidney disease) stage 3, GFR 30-59 ml/min ) Chronic pain ) Lumbar stenosis ) Cervical radiculopathy ) HX Concussion and edema of cervical spinal cord, ) COPD (chronic obstructive pulmonary disease) ) Impaired mobility and activities of daily living ) History of inferior vena caval filter placement Patient was seen and examined discussed with patient Discussed with Doretha Patient meets inpatient criteria/due to multiple comorbid condition need for control of his infection And adjust his meds. Expected length of stay is about 3 or 4 days possible DC to SNF WHEN stable Discussed w home health care case manager Domi Harris inpatient. Doretha Arias Dec 17, 2016 09:20
--- NOTE | 2016-12-18 23:31 | HHI.DS ---
Discharge Summary Admission Date Dec 14, 2016 at 15:11 Discharge Date: Dec 17, 2016 Admitting Diagnosis Weakness, UTI, elevated Troponin (1) Generalized weakness ICD Codes: R53.1 - Weakness Status: Acute (2) HTN (hypertension) ICD Codes: I10 - Hypertension Status: Chronic (3) Impaired mobility and activities of daily living ICD Codes: Z74.09 - Other reduced mobility Status: Chronic (4) A-fib ICD Codes: I48.91 - Unspecified atrial fibrillation Status: Chronic (5) UTI (urinary tract infection) ICD Codes: N39.0 - Urinary tract infection, site not specified Status: Acute (6) Elevated troponin ICD Codes: R74.8 - Abnormal levels of other serum enzymes Status: Acute (7) DM (diabetes mellitus) ICD Codes: E11.9 - Diabetes mellitus Status: Chronic (8) CKD (chronic kidney disease) stage 3, GFR 30-59 ml/min ICD Codes: N18.3 - Chronic kidney disease, stage III (moderate) Status: Chronic (9) COPD (chronic obstructive pulmonary disease) ICD Codes: J44.9 - Chronic obstructive pulmonary disease, unspecified Status: Chronic Procedures STT 12/13 CBC/BMP: 12/16/16 0720 12/15/16 0428 Significant Findings Laboratory Tests Test 12/16/16 07:20 Red Blood Count 4.31 MIL/MM3 (4.50-5.90) Hemoglobin 11.9 GM/DL (13.0-17.0) Hematocrit 37.0 % (39.0-51.0) Imaging Last Impressions Myocardial Perfusion Scan Nuc Med 12/13/16 0000 Signed Impressions: Service Date/Time: Tuesday, December 13, 2016 15:00 - CONCLUSION: No reversible defects observed to suggest acute ischemia. RISK CATEGORY: Low Uriel Moulton Jr., MD Head CT 12/12/16 1528 Signed Impressions: Service Date/Time: Monday, December 12, 2016 16:50 - CONCLUSION: Chronic and small vessel ischemic changes without any evidence for acute hemorrhage or mass effect. Marek Bolaños MD Chest X-Ray 12/12/16 1528 Signed Impressions: Service Date/Time: Monday, December 12, 2016 15:49 - CONCLUSION: Slight linear left midlung atelectasis. Marek Bolaños MD Cervical Spine CT 12/12/16 1528 Signed Impressions: Service Date/Time: Monday, December 12, 2016 16:50 - CONCLUSION: 1. Slight to moderate thecal sac stenosis C3-4. 2. Neural foramina compromise and lateral recess compromise at multiple levels without evidence for acute fracture. Marek Bolaños MD Maxillofacial CT 12/12/16 0000 Signed Impressions: Service Date/Time: Monday, December 12, 2016 16:50 - CONCLUSION: Soft tissue swelling and no definite fracture for technique. Marek Bolaños MD Hospital Course This is a pleasant 66-year-old black male who has, according to him, has progressively become weaker over the last few years. He lives alone, has home health that does assist him but had started a few weeks ago noticing he was becoming weaker. He has also been having some falls. He states that he came to the emergency room with the same symptoms approximately a week ago, was treated and released back home and states that he has not gotten any better. He complains of falling today and was so weak that he did not feel like he could get up. He came to the emergency room for further evaluation. The patient had initial labs drawn which included a urine. He was found to have a urinary tract infection. He denies any chest pain, although he had his first positive troponin. He denies any shortness of breath. Unaware of any fever. Denies any headache. On his last fall he did hit his left eye. It is notably red with some tearing. The right eye also has some redness and tearing. The patient does not notice any pain on urination but states that he has frequency and he only urinates a little bit at the time of urination. The patient does have skin tears on his knees that appear fresh, non bleeding. He does have lower extremity wounds, especially on the right lower leg that have dressings that have been changed recently. He states that they were checked and taken care of by home health. Evaluated in the ED LABORATORY DATA Diagnostic data, WBC count 7.5, red blood cell 4.64, 12.8 hemoglobin, hematocrit 39.5, platelet count 269. Neutrophil count 75.3. Monocyte count 10.9. PT INR is 1.1. Chemistry, sodium is 140, potassium 4.4, chloride 107, carbon dioxide 25.7, anion gap 7, BUN 14, creatinine 1.17. GFR is 75. Random glucose 55. Calcium 8.7. Bilirubin 0.6. Troponin 0.07. Albumin 2.5. Urine shows yellow, hazy urine, pH is 6.0, specific gravity 1.013, protein 300, small amount of occult blood. Negative glucose, ketones, nitrites, bilirubin. Large amount of leukocyte esterase. Many WBC clumps. Culture is indicated. IMAGING Imaging studies showed cervical CT scan with degenerative changes, slight to moderate thecal sac stenosis of C3-C4. A chest x-ray shows slight cardiomegaly, linear scarring and atelectasis of the left mid lung but no focal consolidation seen. Head CT scan chronic and small ischemic changes without any evidence of acute hemorrhage or mass effect. Maxillofacial CT scan soft tissue swelling but no definite fracture. ASSESSMENT AND PLAN 1. Urinary tract infection. 2. Generalized weakness and fatigue and debility. 3. Hypertension, uncontrolled. Mildly accelerated. 4. atrial fibrillation. 5. chronic kidney disease III 6. Diabetes mellitus, uncontrolled. 7. Mild obesity. 8. Anemia. 9. Bilateral conjunctivitis. 10. Elevated troponin Hospital Course: Patient was admitted, put on telemetry. Serial troponins were done, patient denied chest pain Was continued on Rocephin for UTI Home medications were reviewed and initiated as indicated Was noted with subtherapeutic INR, was put on subcutaneous heparin initially. Accu-Cheks before meals and at bedtime with insulin per sliding scale Consulted wound care for lower extremity ulcerations Physical therapy was consulted to assist with mobility Case management was consulted to assist with discharge planning Cardiology evaluated, recommended stress test. STT 12/14 no ischemia, EF 50% -appreciate card input, cleared for discharge Urine culture came back positive for Escherichia coli, changed to PO abx Hypertension was initially uncontrolled, improved, continued on home meds Wound care made recommendations for leg wounds He was continued on diuretics Blood sugars were labile, required changes to his insulin needs. A. fib remained stable, was continued on Coumadin, was changed to Lovenox to bridge. INR was monitored daily Was continued on amiodarone Physical therapy recommended SNF placement, patient in the past was reluctant however he did finally agreed to going to rehabilitation. Patient was discharged to rehabilitation facility in stable condition. Pt Condition on Discharge: Stable Discharge Disposition: Discharge to SNF Discharge Instructions DIET: Follow Instructions for: Heart Healthy Diet, Coumadin (Warfarin) Diet Activities you can perform: Weight Bearing as Anu Other Activity Instructions: fall precautions Follow up Referrals: Cardiology PCP Follow-up New Medications: Enoxaparin Inj (Lovenox Inj) 120 Mg/0.8 Ml Syr 120 MG SQ Q24H for THROMBUS PREVENTION for 10 Days, #10 INJECTION DISCONTINUE WHEN INR > 2 Insulin Detemir Inj (Levemir Inj) 1,000 unit/ 10 ML Vial 30 UNITS SQ HS for Blood Sugar Management for 30 Days, #1 INJECTION Do not mix with any other Insulin. Continued Medications: Amiodarone (Amiodarone) 200 Mg Tab 200 MG PO DAILY for Regulate Heart Beat, #30 TAB 0 Refills Cholecalciferol (Vitamin D3) 50,000 Unit Cap 21302 UNITS PO WEEKLY for Nutritional Supplement, #1 BOTTLE 0 Refills Clopidogrel (Plavix) 75 Mg Tab 75 MG PO DAILY for Blood Clot Prevention, #30 TAB 0 Refills Docusate Sodium (Colace) 100 Mg Capsule 100 MG PO DAILY Ferrous Sulfate DR (Ferrous Sulfate DR) 325 Mg Tabdr 325 MG PO DAILY for Nutritional Supplement for 30 Days Furosemide (Furosemide) 40 Mg Tab 40 MG PO TID for 30 Days, TAB Insulin Aspart Inj (Novolog Inj) 1,000 Unit/10 Ml Vial 5 UNITS SQ TIDAC for Blood Sugar Management, #1 INJECTION Labetalol (Labetalol) 200 Mg Tab 200 MG PO BID for Blood Pressure Management, #60 TAB check BP and HR 30 min prior to givie if SBP < 130 or HR < 70 hold dose and recheck in 1 hour Lisinopril (Lisinopril) 2.5 Mg Tab 2.5 MG PO DAILY, #30 TAB 0 Refills Magnesium Hydroxide (Eq Milk of Magnesia) 1,200 Mg/15 Ml Jennifer 30 ML PO Q12H PRN for MILD - MODERATE CONSTIPATION for 30 Days Metoclopramide (Metoclopramide) 10 Mg Tab 10 MG PO ACHS for 30 Days, TAB Nifedipine (Nifedipine ER) 90 Mg Tab 90 MG PO DAILY for 30 Days, TAB Omeprazole (Omeprazole) 20 Mg Tab 20 MG PO BID, #30 TAB 0 Refills Potassium Chloride ER (Potassium Chloride ER) 10 Meq Cap 10 MEQ PO DAILY for Electrolyte Replacement, #30 CAP 0 Refills Pregabalin (Lyrica) 100 Mg Cap 100 MG PO TID PRN for Neuropathy Pain, #90 CAP 0 Refills Terazosin (Terazosin) 2 Mg Cap 2 MG PO HS, #30 CAP 0 Refills Warfarin (Coumadin) 5 Mg Tab 5 MG PO DAILY@16 for 30 Days, TAB check INR M,W,F with RN report results to PCP goal 2-3 Discontinued Medications: Acetaminophen (Eq Acetaminophen) 325 Mg Tab 650 MG PO Q4H PRN for pain 1-5 for 30 Days, TAB Insulin Detemir Inj (Levemir Inj) 1,000 unit/ 10 ML Vial 130 UNITS SQ am for Blood Sugar Management for 30 Days, VIAL 0 Refills Do not mix with any other Insulin. continue to check blood glucose prior to giving inulsin report results to Dr. Cornell Temazepam (Temazepam) 30 Mg Cap 30 MG PO HS, #30 CAP 0 Refills Doretha Arias Dec 18, 2016 23:31
== END 2016-12-17 11:56 | DRG 690 ==
LOC: NEPC 15:02 → NEDA 17:47 → NEPFCDU 21:00 → OBSVTOIN 12-14 15:11 → N04A 12-14 18:54
PROVIDERS: ADMIT Specialist; ATTEND Specialist
DX: N39.0 Urinary tract infection, site not specified (principal); N17.9 Acute kidney failure, unspecified; E11.22 Type 2 diabetes mellitus with diabetic chronic kidney disease; I13.0 Hypertensive heart and chronic kidney disease with heart failure and stage 1 through stage 4 chronic kidney disease, or unspecified chronic kidney disease; I48.0 Paroxysmal atrial fibrillation; J44.9 Chronic obstructive pulmonary disease, unspecified; I50.9 Heart failure, unspecified; E11.65 Type 2 diabetes mellitus with hyperglycemia; M54.12 Radiculopathy, cervical region; B96.20 Unspecified Escherichia coli [E. coli] as the cause of diseases classified elsewhere; E87.6 Hypokalemia; F41.9 Anxiety disorder, unspecified; R74.8 Abnormal levels of other serum enzymes; E66.9 Obesity, unspecified; H10.9 Unspecified conjunctivitis; D64.9 Anemia, unspecified; N18.3 Chronic kidney disease, stage 3 (moderate); Z68.35 Body mass index [BMI] 35.0-35.9, adult; Z79.01 Long term (current) use of anticoagulants; Z86.718 Personal history of other venous thrombosis and embolism; Z79.4 Long term (current) use of insulin
CPT/HCPCS: 70450; 70486; 71010; 72125; 78452; 80048; 80053; 81001; 82948; 83880; 84484; 85025; 85027; 85610; 85730; 87077; 87086; 87186; 90732; 93005; 93017; 93225; 93226; 93306; 96361; 96365; 96372; 96376; A9502; G0378; G8987-GP; G8988-GP; J0696; J1644; J1650; J1815; J2785; J7030

== ENCOUNTER 2017-06-03 12:07 | Inpatient (IN) | payer MEDICARE, OTHER ==
[2017-06-03] VITALS (9 sets, daily range): BP systolic 98–137; BP diastolic 58–87; PULSE 86–92; RESP 18; TEMP 98–98.6; O2SAT 97–100
[~2017-06-03] VITALS: Ht 198.1 cm; Wt 120.7 kg
[~2017-06-03 12:07] MED LIST changes: -ACET1TAB86 PO; -CLON.1 PO; +COLA100C5 PO; +ENOX120P SQ; -HYDR-3583 PO; +LISI2.5T3 PO; +LYRI100C PO; -NOVOLOGSS SQ; +OMEP20TA93 PO; -PANT40TA3 PO; +PLAV75TA29 PO; -SENN1TAB PO; -TAMS5CAP PO; +TERA2CAP3 PO; -ZOCO40TA PO
[2017-06-03] MEDS ORDERED: PANTOPRAZOLE INJ 80 MG in SODIUM CHLORIDE 0.9% INJ 35 ML IV ONE (12:18)
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
[2017-06-03] MEDS ORDERED: ONDANSETRON HCL 4 MG/2 ML VIAL IV PUSH ONE (12:30)
[2017-06-03] MEDS ORDERED: SODIUM CHLORIDE 0.9% FLUSH 10 ML FLUSH IVF PRN (12:30)
[2017-06-03 13:00] LABS: AUTOMATED NEUTROPHIL # 5.3 TH/MM3 (1.8-7.7); BASOPHIL # 0.1 TH/MM3 (0-0.2); BASOPHIL % 0.7 % (0.0-2.0); EOSINOPHIL # 0.2 TH/MM3 (0-0.4); EOSINOPHIL % 3.1 % (0.0-4.0); HEMATOCRIT 35.3 % (39.0-51.0); HEMOGLOBIN 11.5 GM/DL (13.0-17.0); LYMPH % 15.3 % (9.0-44.0); LYMPHOCYTE # 1.1 TH/MM3 (1.0-4.8); MEAN CELL VOLUME 86.9 FL (80.0-100.0); MEAN CORPUSCULAR HEMOGLOBIN 28.4 PG (27.0-34.0); MEAN CORPUSCULAR HGB CONC 32.6 % (32.0-36.0); MEAN PLATELET VOLUME 8.8 FL (7.0-11.0); MONO % 9.2 % (0.0-8.0); MONOCYTE # 0.7 TH/MM3 (0-0.9); NEUT % 71.7 % (16.0-70.0); PLATELET COUNT 229 TH/MM3 (150-450); RED BLOOD COUNT 4.07 MIL/MM3 (4.50-5.90); RED CELL DISTRIBUTION WIDTH 14.7 % (11.6-17.2); WHITE BLOOD COUNT 7.5 TH/MM3 (4.0-11.0)
[2017-06-03 13:10] LABS: INTERNATIONAL NORMALIZED RATIO 3.1 RATIO; PROTHROMBIN TIME - PATIENT 30.8 SEC (9.8-11.6)
[2017-06-03 13:19] LABS: AST (GOT) 16 U/L (15-37); BICARBONATE 33.3 MEQ/L (21.0-32.0); BLOOD UREA NITROGEN 36 MG/DL (7-18); CALCIUM 9.5 MG/DL (8.5-10.1); CHLORIDE 98 MEQ/L (98-107); CREATININE 1.69 MG/DL (0.60-1.30); GLOMERULAR FILTRATION RATE 49 ML/MIN (>89); GLUCOSE,RANDOM 171 MG/DL (74-106); SODIUM (NA) 139 MEQ/L (136-145)
[2017-06-03 13:20] LABS: ALT (GPT) 21 U/L (12-78)
[2017-06-03 13:22] LABS: ALKALINE PHOSPHATASE 95 U/L (45-117); TOTAL BILIRUBIN ADULT 0.4 MG/DL (0.2-1.0); TOTAL PROTEIN 7.1 GM/DL (6.4-8.2)
[2017-06-03] MEDS: PANTOPRAZOLE INJ 80 MG in SODIUM CHLORIDE 0.9% INJ 100 ML IV SCH ×2 (14:33→23:19)
[2017-06-03] MEDS ORDERED: IOHEXOL 350 MG/ML 10 ML VIAL (for RAD DIAG) IVCONTRAST ONE (15:08)
--- NOTE | 2017-06-03 15:13 | RADRPT ---
EXAM DATE/TIME: 06/03/2017 14:59 [facility] COMPARISON: CT ABDOMEN & PELVIS W CONTRAST, July 01, 2016, 22:00. INDICATIONS : Diffuse abdomen pain with blood in stool. IV CONTRAST: 75 cc Visipaque (iodixanol) IV ORAL CONTRAST: No oral contrast ingested. RADIATION DOSE: 9.92 CTDIvol (mGy) MEDICAL HISTORY : Cardiovascular disease. Hypertension. Deep venous thrombosis.Diabetes, AFIB, CHF. SURGICAL HISTORY : None. ENCOUNTER: Initial ACUITY: 1 day PAIN SCALE: 6/10 LOCATION: Bilateral lower quadrant TECHNIQUE: Volumetric scanning of the abdomen and pelvis was performed. Using automated exposure control and ad justment of the mA and/or kV according to patient size, radiation dose was kept as low as reasonably achievable to obtain optimal diagnostic quality images. DICOM format image data is available electro nically for review and comparison. FINDINGS: Lung base clear. Compensated cardiomegaly Liver is unremarkable Multiple small gallstones Low-density 4.7 cm lesion in spleen stable from comparison study. Adrenal glands are normal 6.6 cm cystic mass supriya hepatis smaller in the interval. As the benign appearance. Adrenal glands are normal Symmetrical renal function Can exclude the mass in the mid sigmoid colon above the bladder. Vena cava filter in good position Prominent bladder Prostate unremarkable Abdominal wall intact There is no ascites or adenopathy CONCLUSION: Rectal tube in place. Cannot exclude mass mid sigmoid colon seen best series 2 image 57; series 601 image 32 Stable ancillary findings as above. Morris Noyola MD FACR on June 03, 2017 at 15:07 Board Certified Radiologist. This report was verified electronically.
[2017-06-03] MEDS: SODIUM CHLOR 0.9% 1000 ML INJ 1,000 ML IV SCH ×2 (16:01→20:39)
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
[2017-06-03] MEDS ORDERED: ONDANSETRON HCL 4 MG/2 ML VIAL IVP PRN (16:15)
[2017-06-03] MEDS ORDERED: SODIUM CHLORIDE 0.9% FLUSH 10 ML FLUSH IV FLUSH PRN (16:15)
[2017-06-03] MEDS ORDERED: metroNIDAZOLE 500 MG TAB PO SCH (16:15)
[2017-06-03] MEDS ORDERED: BISACODYL 10 MG SUPP RECTAL PRN (16:15)
[2017-06-03] MEDS ORDERED: NALOXONE HCL 0.4 MG/ML AMP IV PUSH PRN (16:15)
[2017-06-03] MEDS ORDERED: SENNOSIDES 8.6 MG TAB PO PRN (16:15)
[2017-06-03] MEDS ORDERED: LACTULOSE SYRUP 20 GM/30 ML CUP PO PRN (16:15)
[2017-06-03] MEDS: INSULIN ASPART SUPPLEMENTAL SCALE SQ SCH ×2 (17:00→20:38)
[2017-06-03 17:01] LABS: BILIRUBIN, URINE NEG (NEG); BLOOD, URINE NEG (NEG); GLUCOSE,URINE NEG (NEG); KETONE, URINE NEG (NEG); NITRITE,URINE NEG (NEG); URINE COLOR LIGHT-YELLOW (YELLW/STRAW); URINE LEUKOCYTE ESTERASE NEG (NEG)
[2017-06-03 17:02] LABS: TROPONIN I 0.02 NG/ML (0.02-0.05)
[2017-06-03] MEDS ORDERED: diphenhydrAMINE HCL 25 MG CAP PO PRN (19:15)
[2017-06-03] MEDS ORDERED: SODIUM CHLOR 0.9% 250 ML INJ 250 ML IV ONE (19:15)
[2017-06-03] MEDS ORDERED: ACETAMINOPHEN 325 MG TAB PO PRN (19:15)
[2017-06-03] MEDS ORDERED: PHYTONADIONE 10 MG/ML VIAL SQ ONE (19:15)
[2017-06-03] MEDS ORDERED: FUROSEMIDE 20 MG/2 ML VIAL IV PUSH ONE (19:15)
[2017-06-03] MEDS: RESP: IPRATROPIUM 0.5 MG/2.5 ML NEB NEB SCH (20:26)
[2017-06-03] MEDS: SUCRALFATE 1 GM/10 ML CUP PO SCH (20:38)
[2017-06-03] MEDS: SODIUM CHLORIDE 0.9% FLUSH 10 ML FLUSH IV FLUSH SCH (20:38)
[2017-06-03] MEDS: guaiFENesin E.R. 600 MG TAB PO SCH (20:38)
[2017-06-03 21:31] LABS: HEMATOCRIT 28.1 % (39.0-51.0); HEMOGLOBIN 9.2 GM/DL (13.0-17.0)
[2017-06-03 22:01] LABS: CHOLESTEROL/ HDL RATIO 5.6 RATIO; FREE T4 1.25 NG/DL (0.76-1.46); HDL CHOLESTEROL 32.1 MG/DL (40.0-60.0); TROPONIN I 0.02 NG/ML (0.02-0.05)
[2017-06-03] MEDS: metroNIDAZOLE 500 MG INJ 100 ML IV SCH (23:54)
[2017-06-04] VITALS (16 sets, daily range): BP systolic 103–158; BP diastolic 62–83; PULSE 85–114; RESP 18–20; TEMP 97.4–98.6; O2SAT 96–100
[2017-06-04] MEDS: RESP: IPRATROPIUM 0.5 MG/2.5 ML NEB NEB SCH ×7 (00:02→23:39)
[2017-06-04] MEDS: INSULIN ASPART SUPPLEMENTAL SCALE SQ SCH ×4 (08:00→21:00)
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
[2017-06-04] MEDS: metroNIDAZOLE 500 MG INJ 100 ML IV SCH ×2 (09:00→17:46)
[2017-06-04] MEDS: SUCRALFATE 1 GM/10 ML CUP PO SCH ×4 (09:00→21:59)
[2017-06-04] MEDS: SODIUM CHLORIDE 0.9% FLUSH 10 ML FLUSH IV FLUSH SCH ×2 (09:00→21:00)
[2017-06-04] MEDS: guaiFENesin E.R. 600 MG TAB PO SCH ×2 (09:01→22:00)
[2017-06-04] MEDS: PANTOPRAZOLE INJ 80 MG in SODIUM CHLORIDE 0.9% INJ 100 ML IV SCH ×2 (09:31→18:52)
[2017-06-04] MEDS: SODIUM CHLOR 0.9% 1000 ML INJ 1,000 ML IV SCH ×2 (12:24→22:01)
[2017-06-04 15:09] LABS: AUTOMATED NEUTROPHIL # 4.5 TH/MM3 (1.8-7.7); BASOPHIL # 0.1 TH/MM3 (0-0.2); BASOPHIL % 0.9 % (0.0-2.0); EOSINOPHIL # 0.2 TH/MM3 (0-0.4); EOSINOPHIL % 2.7 % (0.0-4.0); HEMOGLOBIN 7.6 GM/DL (13.0-17.0); LYMPH % 15.8 % (9.0-44.0); MEAN CORPUSCULAR HEMOGLOBIN 28.9 PG (27.0-34.0); MEAN CORPUSCULAR HGB CONC 32.9 % (32.0-36.0); MEAN PLATELET VOLUME 9.2 FL (7.0-11.0); MONO % 7.7 % (0.0-8.0); MONOCYTE # 0.5 TH/MM3 (0-0.9); NEUT % 72.9 % (16.0-70.0); PLATELET COUNT 176 TH/MM3 (150-450); RED BLOOD COUNT 2.62 MIL/MM3 (4.50-5.90); RED CELL DISTRIBUTION WIDTH 14.8 % (11.6-17.2); WHITE BLOOD COUNT 6.1 TH/MM3 (4.0-11.0)
[2017-06-04 15:33] LABS: BICARBONATE 30.9 MEQ/L (21.0-32.0); CALCIUM 8.4 MG/DL (8.5-10.1); CREATININE 1.47 MG/DL (0.60-1.30)
[2017-06-04] MEDS ORDERED: SODIUM CHLOR 0.9% 250 ML INJ 250 ML IV ONE (18:00)
[2017-06-04] MEDS ORDERED: FUROSEMIDE 20 MG/2 ML VIAL IV PUSH ONE (18:00)
--- NOTE | 2017-06-04 18:21 | HHI.PR ---
Subjective Remarks Patient is having melanotic stools. c/o diarrhea, denies cp, sob, abdominal pain, nausea or vomiting. Objective Vitals Vital Signs Date Time Temp Pulse Resp B/P (MAP) Pulse Ox O2 Delivery O2 Flow Rate FiO2 06/04/17 16:39 97.8 98 20 121/73 (89) 98 06/04/17 12:21 97.7 96 20 137/78 (97) 100 06/04/17 12:00 93 06/04/17 08:44 97.4 99 20 158/78 (104) 100 06/04/17 08:12 Nasal Cannula 2.00 06/04/17 08:00 Nasal Cannula 2.00 06/04/17 08:00 89 06/04/17 04:45 98.6 94 20 111/62 99 06/04/17 04:00 98.4 94 20 111/62 (78) 99 06/04/17 04:00 88 06/04/17 02:37 98.3 85 18 109/83 96 06/04/17 02:16 98.5 89 18 103/69 99 06/04/17 00:00 98.0 92 20 114/79 (91) 100 06/04/17 00:00 85 06/03/17 23:49 98.6 92 18 114/79 100 06/03/17 21:22 98.0 92 18 118/69 97 06/03/17 20:47 98.0 89 18 99/58 97 06/03/17 20:00 96 Nasal Cannula 2.00 06/03/17 20:00 98.0 89 18 99/58 (72) 97 06/03/17 19:38 100 Nasal Cannula 2.00 I/O 06/03/17 06/03/17 06/03/17 06/04/17 06/04/17 06/04/17 07:00 15:00 23:00 07:00 15:00 23:00 Intake Total 712 ml 720 ml Output Total 2500 ml 1525 ml Balance -1788 ml -805 ml Intake Oral 720 ml FFP 712 ml Output Urine Total 2500 ml 1525 ml # Bowel Movements 2 Result Diagram: 06/04/17 1405 06/04/17 1419 Imaging Last Impressions Abdomen/Pelvis CT 06/03/17 1224 Signed Impressions: Service Date/Time: Saturday, June 03, 2017 14:59 - CONCLUSION: Rectal tube in place. Cannot exclude mass mid sigmoid colon seen best series 2 image 57; series 601 image 32 Stable ancillary findings as above. Morris Noyola MD FACR Objective Remarks GENERAL: NAD, awake and alert SKIN: No rashes, ecchymoses or lesions. Cool and dry. HEAD: Atraumatic. Normocephalic. No temporal or scalp tenderness. EYES: Pupils equal round and reactive. Extraocular motions intact. No scleral icterus. No injection or drainage. ENT: Nose without bleeding, purulent drainage or septal hematoma. Throat without erythema, tonsillar hypertrophy or exudate. Uvula midline. Airway patent. NECK: Trachea midline. No JVD or lymphadenopathy. Supple, nontender, no meningeal signs. CARDIOVASCULAR: Regular rate and rhythm without murmurs, gallops, or rubs. RESPIRATORY: Clear to auscultation. Breath sounds equal bilaterally. No wheezes , rales, or rhonchi. GASTROINTESTINAL: Abdomen soft, non-tender, nondistended. No hepato-splenomegaly , or palpable masses. No guarding. rectal tube with dark maroon stool. MUSCULOSKELETAL: Extremities without clubbing, cyanosis, or edema. No joint tenderness, effusion, or edema noted. No calf tenderness. Negative Homans sign bilaterally. NEUROLOGICAL: Awake and alert. Cranial nerves II through XII intact. Motor and sensory grossly within normal limits. Five out of 5 muscle strength in all muscle groups. Normal speech. Medications and IVs Current Medications Medications (Trade) Dose Ordered Sig/Phyllis Route Start Time Stop Time Status Last Admin Pantoprazole Sodium 80 mg/ Sodium Chloride 100 ml @ 10 mls/hr Q10H IV 06/03/17 12:18 06/04/17 09:31 Sodium Chloride 1,000 ml @ 100 mls/hr Q10H IV 06/03/17 16:01 06/04/17 12:24 (NS Flush) 2 ml UNSCH PRN IV FLUSH 06/03/17 16:15 (NS Flush) 2 ml BID IV FLUSH 06/03/17 21:00 (Tylenol) 650 mg Q4H PRN PO 06/03/17 16:15 (Zofran Inj) 4 mg Q6H PRN IVP 06/03/17 16:15 (Narcan Inj) 0.4 mg UNSCH PRN IV PUSH 06/03/17 16:15 (Senokot) 17.2 mg Q12H PRN PO 06/03/17 16:15 (Dulcolax Supp) 10 mg DAILY PRN RECTAL 06/03/17 16:15 (Lactulose Liq) 30 ml DAILY PRN PO 06/03/17 16:15 (NovoLOG SUPPLEMENTAL SCALE) 1 ACHS SLIDING SCALE SQ 06/03/17 17:00 06/04/17 17:56 (Tylenol) 650 mg Q4H PRN PO 06/03/17 19:15 06/03/17 20:37 (Benadryl) 25 mg Q4H PRN PO 06/03/17 19:15 06/03/17 20:37 (Carafate Liq) 1 gm ACHS PO 06/03/17 21:00 06/04/17 17:46 Metronidazole 100 ml @ 100 mls/hr Q8H IV 06/04/17 01:00 06/04/17 17:46 (Atrovent Neb) 0.5 mg Q4HR NEB NEB 06/03/17 20:00 06/04/17 16:31 (Mucinex Er) 600 mg BID PO 06/03/17 21:00 06/04/17 09:01 Sodium Chloride 250 ml @ 15 mls/hr ONCE ONCE IV 06/04/17 18:00 06/05/17 10:39 (Tylenol) 650 mg Q4H PRN PO 06/04/17 18:00 (Benadryl) 25 mg Q4H PRN PO 06/04/17 18:00 (Lasix Inj) 20 mg ONCE ONCE IV PUSH 06/04/17 18:00 06/04/17 18:01 A/P Problem List: (1) GI bleed ICD Code: K92.2 - Gastrointestinal hemorrhage, unspecified Plan: CT abdomen and pelvis shows possible sigmoid colon mass. The patient status post infusion of 2 units of packed red blood cells with an appropriate hemoglobin response. Hemoglobin today 10.6. Transfuse 2 units of packed red blood cells stat, continue to monitor hemoglobin. GI consulted and following -colonoscopy planned for tomorrow. Hold warfarin and Plavix. (2) Acute blood loss anemia ICD Code: D62 - Acute posthemorrhagic anemia Plan: Due to GI bleed, transfuse 2 units packed red blood cells and monitor hemoglobin. (3) Diarrhea ICD Code: R19.7 - Diarrhea, unspecified Plan: Diarrhea likely secondary to GI bleed. We will discontinue IV Flagyl since patient does not have increased white blood cell count or fever. (4) Colonic mass ICD Code: K63.9 - Disease of intestine, unspecified Status: Acute Plan: GI consulted. For colonoscopy in a.m. (5) RAF (acute kidney injury) ICD Code: N17.9 - Acute kidney failure, unspecified Plan: Likely secondary to prerenal azotemia secondary to dehydration due to blood loss. Creatinine on admission 1.69, trending down. Continue to monitor BUN/creatinine , monitor strict I's and O's, avoid nephrotoxins. (6) Diabetes mellitus with hyperglycemia ICD Code: E11.65 - Type 2 diabetes mellitus with hyperglycemia Plan: The patient is on basal bolus therapy with insulin Levemir and prandial insulin NovoLog. We will place the patient on SSI with insulin NovoLog. (7) HTN (hypertension) ICD Code: I10 - Essential (primary) hypertension Plan: Hold antihypertensive medications and monitor BP. The patient becomes hypotensive we will treated with IV fluid boluses. (8) H/O deep venous thrombosis ICD Code: Z86.718 - Personal history of other venous thrombosis and embolism Plan: Patient is on chronic articulation with Coumadin. Patient presented with an elevated INR of 3.1 and Hold Coumadin. The patient is status post transfusion of 2 units of FFP and demonstration vitamin K. I will repeat a stat PT/INR. If INR is still elevated then we will transfuse more fresh frozen plasma. The patient has an IVC filter in place as per records. (9) Atrial fibrillation ICD Code: I48.91 - Unspecified atrial fibrillation Plan: EKG on admission shows sinus rhythm with first-degree AV block. Patient now in sinus rhythm. Hold on the correlation. The patient is on amiodarone which I will continue. (10) Hyperlipidemia ICD Code: E78.5 - Hyperlipidemia, unspecified Plan: Hold statin while patient has active GI bleed. Presumed once it resolves. (11) HTN (hypertension) ICD Code: I10 - Hypertension Status: Chronic Plan: Hold antihypertensive medications. Monitor vital signs. Assessment and Plan DVT prophylaxis: SCDs, chemoprophylaxis contraindicated due to active GI bleeding. Discharge Planning Continue to monitor the medical floor if the patient deteriorates then will transfer to intensive care unit. Problem Qualifiers (1) Diabetes mellitus with hyperglycemia: Qualified Codes: E11.65 - Type 2 diabetes mellitus with hyperglycemia; Z79.4 - [facility] (current) use of insulin (2) HTN (hypertension): Qualified Codes: I10 - Essential (primary) hypertension (3) Atrial fibrillation: Qualified Codes: I48.2 - Chronic atrial fibrillation (4) Hyperlipidemia: Qualified Codes: E78.5 - Hyperlipidemia, unspecified Bubba Martini MD Jun 04, 2017 18:21
[2017-06-04 19:08] LABS: INTERNATIONAL NORMALIZED RATIO 1.9 RATIO; PROTHROMBIN TIME - PATIENT 19.7 SEC (9.8-11.6)
[2017-06-04] MEDS: diphenhydrAMINE HCL 25 MG CAP PO PRN (21:59)
[2017-06-04] MEDS: ACETAMINOPHEN 325 MG TAB PO PRN (22:00)
[2017-06-04] MEDS ORDERED: PEG (High)/E-LYTE SOLN 4000 ML BTL PO ONE (23:00)
[2017-06-05] VITALS (33 sets, daily range): BP systolic 93–174; BP diastolic 62–93; PULSE 93–115; RESP 12–20; TEMP 97.2–99.2; O2SAT 96–100
--- NOTE | 2017-06-05 00:13 | EKG ---
Date Performed: 06/03/2017 Time Performed: 12:46:48 PTAGE: 66 years EKG: Sinus rhythm WITH FIRST DEGREE AV BLOCK POSSIBLE RIGHT VENTRICULAR CONDUCTION DELAY LEFT ANTERIOR FASCICULAR BLOC K ABNORMAL ECG PREVIOUS TRACING : 12/12/2016 17.54 Since the prior tracing, there has been no significant [place] DOCTOR: Cholo Tafoya Interpretating Date/Time 06/05/2017 00:12:00
[2017-06-05] MEDS: diphenhydrAMINE HCL 25 MG CAP PO PRN (01:58)
[2017-06-05] MEDS: ACETAMINOPHEN 325 MG TAB PO PRN ×3 (01:58→21:35)
[2017-06-05] MEDS: RESP: IPRATROPIUM 0.5 MG/2.5 ML NEB NEB SCH ×6 (03:10→23:50)
[2017-06-05] MEDS: PANTOPRAZOLE INJ 80 MG in SODIUM CHLORIDE 0.9% INJ 100 ML IV SCH ×2 (04:23→14:32)
[2017-06-05 06:10] LABS: HEMATOCRIT 22.8 % (39.0-51.0); HEMOGLOBIN 7.7 GM/DL (13.0-17.0); MEAN CELL VOLUME 85.8 FL (80.0-100.0); MEAN CORPUSCULAR HGB CONC 33.8 % (32.0-36.0); MEAN PLATELET VOLUME 8.8 FL (7.0-11.0); PLATELET COUNT 169 TH/MM3 (150-450); RED BLOOD COUNT 2.66 MIL/MM3 (4.50-5.90); RED CELL DISTRIBUTION WIDTH 15.1 % (11.6-17.2); WHITE BLOOD COUNT 8.5 TH/MM3 (4.0-11.0)
[2017-06-05 06:25] LABS: INTERNATIONAL NORMALIZED RATIO 1.6 RATIO; PROTHROMBIN TIME - PATIENT 16.4 SEC (9.8-11.6)
[2017-06-05 06:32] LABS: BICARBONATE 33.8 MEQ/L (21.0-32.0); CALCIUM 8.3 MG/DL (8.5-10.1); CREATININE 1.39 MG/DL (0.60-1.30); MAGNESIUM 1.8 MG/DL (1.5-2.5); PHOSPHORUS 2.5 MG/DL (2.5-4.9)
[2017-06-05] MEDS: INSULIN ASPART SUPPLEMENTAL SCALE SQ SCH ×4 (08:00→21:00)
[2017-06-05] MEDS: SODIUM CHLOR 0.9% 1000 ML INJ 1,000 ML IV SCH ×2 (08:01→18:01)
[2017-06-05] MEDS: SUCRALFATE 1 GM/10 ML CUP PO SCH ×4 (08:50→21:13)
[2017-06-05] MEDS: guaiFENesin E.R. 600 MG TAB PO SCH ×2 (08:51→21:13)
[2017-06-05] MEDS: SODIUM CHLORIDE 0.9% FLUSH 10 ML FLUSH IV FLUSH SCH ×2 (08:51→21:00)
[2017-06-05] MEDS ORDERED: SODIUM CHLOR 0.9% 250 ML INJ 250 ML IV ONE ×2 (10:00→16:15)
--- NOTE | 2017-06-05 11:00 | HHI.PR ---
Subjective Remarks Patient denies cp, sob. Dark blood seen on rectal bag. Denies abdominal pain, nausea or vomiting. Objective Vitals Vital Signs Date Time Temp Pulse Resp B/P (MAP) Pulse Ox O2 Delivery O2 Flow Rate FiO2 06/05/17 09:37 98.5 95 18 139/88 99 06/05/17 09:22 97.4 94 18 150/92 98 06/05/17 08:48 99.0 103 20 116/85 (95) 98 06/05/17 08:00 96 06/05/17 07:13 Nasal Cannula 2.00 06/05/17 06:54 98.4 100 20 145/87 97 06/05/17 06:37 98.7 102 20 140/89 97 06/05/17 06:09 98.7 103 18 128/87 97 06/05/17 04:17 98.9 100 18 147/86 100 06/05/17 04:17 Nasal Cannula 2.00 06/05/17 04:01 Nasal Cannula 2.00 06/05/17 04:01 99.0 101 20 136/88 98 06/05/17 04:00 98.3 108 18 134/88 (103) 98 06/05/17 04:00 Nasal Cannula 2.00 06/05/17 03:47 103 06/05/17 03:25 98.2 105 18 144/87 96 06/05/17 01:35 99.0 95 18 118/77 98 06/05/17 01:35 Nasal Cannula 2.00 06/05/17 01:16 Nasal Cannula 2.00 06/05/17 01:16 98.4 93 17 93/66 98 06/05/17 01:05 98.8 115 18 113/62 (79) 100 06/05/17 01:05 Nasal Cannula 2.00 06/04/17 23:45 108 06/04/17 22:47 98.1 107 18 123/80 99 06/04/17 22:24 Nasal Cannula 2.00 06/04/17 22:24 98.2 108 20 109/71 98 06/04/17 21:33 Nasal Cannula 2.00 06/04/17 20:00 98.4 108 20 108/69 (82) 98 06/04/17 19:48 114 06/04/17 16:39 97.8 98 20 121/73 (89) 98 06/04/17 16:00 95 06/04/17 12:21 97.7 96 20 137/78 (97) 100 06/04/17 12:00 93 I/O 06/04/17 06/04/17 06/04/17 06/05/17 06/05/17 06/05/17 07:00 15:00 23:00 07:00 15:00 23:00 Intake Total 712 ml 720 ml 100 ml 1605 ml 328 ml Output Total 2500 ml 1525 ml 1900 ml 500 ml Balance -1788 ml -805 ml 100 ml -295 ml -172 ml Intake Oral 720 ml 320 ml IV Total 100 ml 107 ml Packed Cells 800 ml FFP 712 ml 354 ml 328 ml Blood Product IV Normal Saline Flush 24 ml Output Urine Total 2500 ml 1525 ml 1900 ml 500 ml # Bowel Movements 2 3 Result Diagram: 06/05/17 0545 06/05/17 0545 Imaging Last Impressions Abdomen/Pelvis CT 06/03/17 1224 Signed Impressions: Service Date/Time: Saturday, June 03, 2017 14:59 - CONCLUSION: Rectal tube in place. Cannot exclude mass mid sigmoid colon seen best series 2 image 57; series 601 image 32 Stable ancillary findings as above. Morris Noyola MD FACR Objective Remarks GENERAL: NAD, awake and alert SKIN: No rashes, ecchymoses or lesions. Cool and dry. HEAD: Atraumatic. Normocephalic. No temporal or scalp tenderness. EYES: Pupils equal round and reactive. Extraocular motions intact. No scleral icterus. No injection or drainage. ENT: Nose without bleeding, purulent drainage or septal hematoma. Throat without erythema, tonsillar hypertrophy or exudate. Uvula midline. Airway patent. NECK: Trachea midline. No JVD or lymphadenopathy. Supple, nontender, no meningeal signs. CARDIOVASCULAR: Regular rate and rhythm without murmurs, gallops, or rubs. RESPIRATORY: Clear to auscultation. Breath sounds equal bilaterally. No wheezes , rales, or rhonchi. GASTROINTESTINAL: Abdomen soft, non-tender, nondistended. No hepato-splenomegaly , or palpable masses. No guarding. rectal tube with dark maroon stool. MUSCULOSKELETAL: Extremities without clubbing, cyanosis, or edema. No joint tenderness, effusion, or edema noted. No calf tenderness. Negative Homans sign bilaterally. NEUROLOGICAL: Awake and alert. Cranial nerves II through XII intact. Motor and sensory grossly within normal limits. Five out of 5 muscle strength in all muscle groups. Normal speech. Medications and IVs Current Medications Medications (Trade) Dose Ordered Sig/Phyllis Route Start Time Stop Time Status Last Admin Pantoprazole Sodium 80 mg/ Sodium Chloride 100 ml @ 10 mls/hr Q10H IV 06/03/17 12:18 06/05/17 14:32 Sodium Chloride 1,000 ml @ 100 mls/hr Q10H IV 06/03/17 16:01 06/04/17 12:24 (NS Flush) 2 ml UNSCH PRN IV FLUSH 06/03/17 16:15 (NS Flush) 2 ml BID IV FLUSH 06/03/17 21:00 (Tylenol) 650 mg Q4H PRN PO 06/03/17 16:15 (Zofran Inj) 4 mg Q6H PRN IVP 06/03/17 16:15 (Narcan Inj) 0.4 mg UNSCH PRN IV PUSH 06/03/17 16:15 (Senokot) 17.2 mg Q12H PRN PO 06/03/17 16:15 (Dulcolax Supp) 10 mg DAILY PRN RECTAL 06/03/17 16:15 (Lactulose Liq) 30 ml DAILY PRN PO 06/03/17 16:15 (NovoLOG SUPPLEMENTAL SCALE) 1 ACHS SLIDING SCALE SQ 06/03/17 17:00 06/04/17 17:56 (Tylenol) 650 mg Q4H PRN PO 06/03/17 19:15 06/03/17 20:37 (Benadryl) 25 mg Q4H PRN PO 06/03/17 19:15 06/03/17 20:37 (Carafate Liq) 1 gm ACHS PO 06/03/17 21:00 06/05/17 11:33 (Atrovent Neb) 0.5 mg Q4HR NEB NEB 06/03/17 20:00 06/05/17 03:10 (Mucinex Er) 600 mg BID PO 06/03/17 21:00 06/05/17 08:51 Sodium Chloride 250 ml @ 15 mls/hr ONCE ONCE IV 06/05/17 10:00 06/06/17 02:39 06/05/17 11:33 Urinary Catheter: No Vascular Central Line Catheter: No A/P Problem List: (1) GI bleed ICD Code: K92.2 - Gastrointestinal hemorrhage, unspecified Plan: CT abdomen and pelvis shows possible sigmoid colon mass. The patient is status post transfusion of total of 4 units of packed red blood cells.. GI consulted and following -colonoscopy planned for tomorrow. Continue to hold warfarin and Plavix. (2) Acute blood loss anemia ICD Code: D62 - Acute posthemorrhagic anemia Plan: The patient is actively bleeding. The patient status post infusion of 2 units of packed red blood cells without any improvement on hemoglobin. Hemoglobin today 7.7 I will transfuse 2 units of packed red blood cells. INR also elevated yesterday 1.9, the patient status post infusion of 3 units of FFP, INR today 1.6. I will transfuse another 2 units of FFP's. (3) Diarrhea ICD Code: R19.7 - Diarrhea, unspecified Plan: Diarrhea likely secondary to GI bleed. We will discontinue IV Flagyl since patient does not have increased white blood cell count or fever. (4) Colonic mass ICD Code: K63.9 - Disease of intestine, unspecified Status: Acute Plan: GI consulted. For colonoscopy today. (5) RAF (acute kidney injury) ICD Code: N17.9 - Acute kidney failure, unspecified Plan: Likely secondary to prerenal azotemia secondary to dehydration due to blood loss. Creatinine on admission 1.69, trending down. Continue to monitor BUN/creatinine , monitor strict I's and O's, avoid nephrotoxins. (6) Diabetes mellitus with hyperglycemia ICD Code: E11.65 - Type 2 diabetes mellitus with hyperglycemia (7) HTN (hypertension) ICD Code: I10 - Essential (primary) hypertension Plan: Hold antihypertensive medications and monitor BP. If the patient becomes hypotensive we will treated with IV fluid boluses. (8) H/O deep venous thrombosis ICD Code: Z86.718 - Personal history of other venous thrombosis and embolism Plan: Patient is on chronic articulation with Coumadin. Patient presented with an elevated INR of 3.1 and Hold Coumadin. The patient is status post transfusion of 2 units of FFP and demonstration vitamin K. I will repeat a stat PT/INR. If INR is still elevated then we will transfuse more fresh frozen plasma. The patient has an IVC filter in place as per records. (9) Atrial fibrillation ICD Code: I48.91 - Unspecified atrial fibrillation Plan: EKG on admission shows sinus rhythm with first-degree AV block. Patient now in sinus rhythm. Continue to hold on the correlation. On amiodarone. (10) Hyperlipidemia ICD Code: E78.5 - Hyperlipidemia, unspecified Plan: Hold statin while patient has active GI bleed. Resume once GI bleed resolves. (11) HTN (hypertension) ICD Code: I10 - Hypertension Status: Chronic Plan: Hold antihypertensive medications. Monitor vital signs. Assessment and Plan DVT prophylaxis: SCDs, chemoprophylaxis contraindicated due to active GI bleeding. Discharge Planning Continue to monitor the medical floor if the patient deteriorates then will transfer to intensive care unit. Problem Qualifiers (1) Diabetes mellitus with hyperglycemia: Qualified Codes: E11.65 - Type 2 diabetes mellitus with hyperglycemia; Z79.4 - [facility] [facility] [employer] (current) use of insulin (2) HTN (hypertension): Qualified Codes: I10 - Essential (primary) hypertension (3) Atrial fibrillation: Qualified Codes: I48.2 - Chronic atrial fibrillation (4) Hyperlipidemia: Qualified Codes: E78.5 - Hyperlipidemia, unspecified Bubba Martini MD Jun 05, 2017 11:00
[2017-06-05] MEDS ORDERED: PROPOFOL 200 MG/20 ML AMP IV ONE (12:00)
[2017-06-05] MEDS ORDERED: LIDOCAINE HCL 1% PF 5 ML SYRINGE OTHER ONE (12:00)
[2017-06-05 15:57] LABS: HEMATOCRIT 23.1 % (39.0-51.0); HEMOGLOBIN 7.9 GM/DL (13.0-17.0)
[2017-06-05] MEDS ORDERED: FUROSEMIDE 20 MG/2 ML VIAL IV PUSH ONE (16:15)
[2017-06-05] MEDS ORDERED: DO NOT ADM ANY ANTICOAGULANT DRUGS PRN (16:45)
--- NOTE | 2017-06-05 17:18 | PD.PROCEDR ---
GI Procedure PROCEDURE PERFORMED EGD followed by colonoscopy INDICATION FOR PROCEDURE GI bleed PROCEDURE: The procedure, risks and benefits were discussed with Mr. Castillo and informed consent was obtained. Anesthesia sedated him with Diprivan. He was placed in the left lateral decubitus position. EGD: The Pentax videoscope was introduced through the oropharynx and advanced to the second portion of the duodenum under direct visualization. Retroflexion was performed in the stomach. FINDINGS: The esophagus this was unremarkable with normal limits The stomach there was a small hiatal hernia otherwise gastric mucosa was unremarkable and within normal limits The duodenum this too appeared to be unremarkable and within normal limits Colonoscopy: The Pentax videoscope was introduced through the rectum and advanced to cecum where the ileocecal valve and appendiceal orifice were identified. Retroflexion was performed in the rectum. Colonic prep was good FINDINGS: Colonic withdrawal time greater than 6 minutes as the scope was slowly withdrawn colonic mucosa was carefully inspected this was noted to be unremarkable with normal limits although the way through the patient was noted to have scattered diverticuli throughout the whole colon mostly though in the sigmoid retroflexion in the rectum did reveal moderate size internal hemorrhoids rectal examination otherwise unremarkable ESTIMATED BLOOD LOSS: None SPECIMENS REMOVED: None COMPLICATIONS: None IMPRESSION: Small hiatal hernia Diverticulosis Internal hemorrhoids No active bleeding Most likely cause of bleeding is diverticular bleed PLAN: Advance to a clear liquid diet Continue with current supportive care Monitor labs and transfuse as needed If there were to be any further active bleeding we will pursue a GI bleeding scan If all is stable tomorrow May advance to a heart healthy diet Eleno Patton MD Jun 05, 2017 17:18
[2017-06-06] VITALS (12 sets, daily range): BP systolic 136–158; BP diastolic 79–98; PULSE 91–107; RESP 18–21; TEMP 98.2–99.7; O2SAT 94–100
[2017-06-06] MEDS: SODIUM CHLOR 0.9% 1000 ML INJ 1,000 ML IV SCH ×3 (01:42→21:37)
[2017-06-06] MEDS: PANTOPRAZOLE INJ 80 MG in SODIUM CHLORIDE 0.9% INJ 100 ML IV SCH ×3 (01:42→21:36)
[2017-06-06] MEDS: RESP: IPRATROPIUM 0.5 MG/2.5 ML NEB NEB SCH ×4 (07:52→20:07)
[2017-06-06] MEDS: INSULIN ASPART SUPPLEMENTAL SCALE SQ SCH ×4 (08:00→21:35)
[2017-06-06] MEDS: SODIUM CHLORIDE 0.9% FLUSH 10 ML FLUSH IV FLUSH SCH ×2 (08:19→21:36)
[2017-06-06] MEDS: SUCRALFATE 1 GM/10 ML CUP PO SCH ×4 (08:20→21:35)
[2017-06-06] MEDS: guaiFENesin E.R. 600 MG TAB PO SCH ×2 (08:20→21:36)
[2017-06-06 09:56] LABS: HEMATOCRIT 24.8 % (39.0-51.0); HEMOGLOBIN 8.5 GM/DL (13.0-17.0); MEAN CELL VOLUME 86.6 FL (80.0-100.0); MEAN CORPUSCULAR HEMOGLOBIN 29.7 PG (27.0-34.0); MEAN CORPUSCULAR HGB CONC 34.3 % (32.0-36.0); MEAN PLATELET VOLUME 9.1 FL (7.0-11.0); PLATELET COUNT 173 TH/MM3 (150-450); RED BLOOD COUNT 2.86 MIL/MM3 (4.50-5.90); RED CELL DISTRIBUTION WIDTH 15.5 % (11.6-17.2); WHITE BLOOD COUNT 9.8 TH/MM3 (4.0-11.0)
[2017-06-06 10:12] LABS: INTERNATIONAL NORMALIZED RATIO 1.1 RATIO; PROTHROMBIN TIME - PATIENT 11.4 SEC (9.8-11.6)
[2017-06-06 10:26] LABS: BICARBONATE 30.8 MEQ/L (21.0-32.0); CALCIUM 8.7 MG/DL (8.5-10.1); CREATININE 1.16 MG/DL (0.60-1.30)
--- NOTE | 2017-06-06 11:44 | HHI.GIFU ---
Subjective Remarks Pt resting in bed, no GI complaints. No further bleeding. Asking for food. (Sharon Mckee) Objective Vitals I&O Vital Signs Date Time Temp Pulse Resp B/P (MAP) Pulse Ox O2 Delivery O2 Flow Rate FiO2 06/06/17 08:04 98.2 92 18 146/84 (104) 98 06/06/17 08:00 Nasal Cannula 2.00 06/06/17 07:53 97 21 06/06/17 04:00 98.6 100 18 158/90 (112) 99 06/06/17 04:00 Nasal Cannula 2.00 06/06/17 03:48 100 06/06/17 01:25 98.9 107 18 151/82 98 06/06/17 01:25 Nasal Cannula 2.00 06/06/17 00:00 Nasal Cannula 2.00 06/06/17 00:00 98.6 97 20 149/84 (105) 100 06/05/17 23:49 99 06/05/17 23:26 98.3 101 20 147/89 97 06/05/17 23:00 Nasal Cannula 2.00 06/05/17 23:00 99.2 103 20 151/82 99 06/05/17 21:09 98.5 101 16 143/84 100 06/05/17 21:03 100 Nasal Cannula 2.00 06/05/17 20:51 98.8 104 18 150/86 99 06/05/17 20:00 98.9 100 18 147/75 (99) 100 06/05/17 20:00 Nasal Cannula 2.00 06/05/17 19:47 112 06/05/17 18:50 98.1 96 18 152/83 99 06/05/17 18:34 98.6 95 14 137/77 98 06/05/17 16:50 90 15 96 Room Air 06/05/17 16:45 97.8 92 15 134/70 (91) 100 Nasal Cannula 2 06/05/17 16:30 98.0 96 12 139/76 (97) 100 Nasal Cannula 3 06/05/17 14:30 98.6 93 20 156/81 98 06/05/17 14:14 98.9 95 18 154/84 97 06/05/17 13:30 98.4 99 18 174/75 98 06/05/17 12:19 99.0 94 18 143/84 (103) 97 06/05/17 11:57 99.0 94 18 143/84 97 06/05/17 11:52 97.2 96 20 146/87 97 I/O 06/05/17 06/05/17 06/05/17 06/06/17 06/06/17 06/06/17 07:00 15:00 23:00 07:00 15:00 23:00 Intake Total 1605 ml 1110 ml 1389 ml 2153 ml Output Total 1900 ml 500 ml 0 ml 2700 ml Balance -295 ml 610 ml 1389 ml -547 ml Intake Oral 320 ml 1120 ml IV Total 107 ml 100 ml 250 ml 710 ml Packed Cells 800 ml 400 ml 400 ml FFP 354 ml 610 ml 639 ml 323 ml Blood Product IV Normal Saline Flush 24 ml Other 100 ml Output Urine Total 1900 ml 500 ml 2700 ml Stool Total 0 ml # Voids 0 # Bowel Movements 3 0 Laboratory Laboratory Tests Test 06/05/17 14:15 06/06/17 08:50 Hemoglobin 7.9 8.5 Hematocrit 23.1 24.8 White Blood Count 9.8 Red Blood Count 2.86 Mean Corpuscular Volume 86.6 Mean Corpuscular Hemoglobin 29.7 Mean Corpuscular Hemoglobin Concent 34.3 Red Cell Distribution Width 15.5 Platelet Count 173 Mean Platelet Volume 9.1 Prothrombin Time 11.4 Prothromb Time International Ratio 1.1 Blood Urea Nitrogen 14 Creatinine 1.16 Random Glucose 128 Calcium Level 8.7 Sodium Level 144 Potassium Level 3.1 Chloride Level 105 Carbon Dioxide Level 30.8 Anion Gap 8 Estimat Glomerular Filtration Rate 76 Date/Time Source Procedure Growth Status 06/03/17 20:24 Blood Peripheral Aerobic Blood Culture - Preliminary NO GROWTH IN 3 DAYS Resulted 06/03/17 20:24 Blood Peripheral Anaerobic Blood Culture - Preliminary NO GROWTH IN 3 DAYS Resulted Imaging Last Impressions Abdomen/Pelvis CT 06/03/17 1224 Signed Impressions: Service Date/Time: Saturday, June 03, 2017 14:59 - CONCLUSION: Rectal tube in place. Cannot exclude mass mid sigmoid colon seen best series 2 image 57; series 601 image 32 Stable ancillary findings as above. Morris Noyola MD FACR Physical Exam HEENT: PERRL; normocephalic; atraumatic; no jaundice. CHEST: Diminished CARDIAC: RRR ABDOMEN: Soft, nondistended, nontender; no hepatosplenomegaly; bowel sounds are present in all four quadrants. EXTREMITIES: No clubbing, cyanosis, + edema. SKIN: Normal; no rash; no jaundice. [employer]: alert (Sharon Mckee) Assessment and Plan Plan Assessment: - GIB- Started with diarrhea and bloody stools at 3am yesterday morning after eating the chilli the night prior. History of GI bleed (06/2016) with no clear source ever found. EGD revealed class A esophagitis and gastritis and colonoscopy revealed diverticulosis and internal hemorrhoids. Pt had a SBFT after, which was unremarkable. Pt was advised to have capsule endoscopy outpatient, but he can not remember if he has or not. Denies ETOH. Quit smoking 8 months ago. Denies NSAIDs, does report taking daily ASA. On Protonix gtt. - Anemia- likely secondary to GIB. Initial H/H 11.5/35.3 rechecked last night and it was 9.5/28.1. - Anticoagulation- Currently on Coumadin for a-fib and history of DVT. INR 3.1 on admission now S/P 2 U FFP. - ? Mass seen on CT - CT abdomen and pelvis with IV contrast (06/03) --> Rectal tube in place. Cannot exclude mass in the mid sigmoid colon above the bladder. Pt denies family history of colon cancer. Denies any unintentional weight loss, abdominal pain. - CKD- Impaired renal function- history of DM- per attending 06/06/17 s/p EGD and colonoscopy 06/05 found small hiatal hernia, diverticulosis, int hemorrhoids. likely he had diverticular bleed HH stable. INR 1.1 will advance diet PLAN - ADA diet - monitor HH - if active bleeding, stat bleed scan - supportive care pt seen by myself and Dr Patton and this note is written on his behalf (Sharon Mckee) Physician Comments Patient seen and examined Agree with above Continue with current supportive care Monitor labs We will sign off (Eleno Patton MD) Sharon Mckee Jun 06, 2017 11:44 Eleno Patton MD Jun 06, 2017 19:03
--- NOTE | 2017-06-06 12:21 | HHI.PR ---
Subjective Remarks Patient states that he feels hungry and wants to eat. The patient denies any melena or bright red blood per rectum. The patient denies any nausea, vomiting or abdominal pain. Objective Vitals Vital Signs Date Time Temp Pulse Resp B/P (MAP) Pulse Ox O2 Delivery O2 Flow Rate FiO2 06/06/17 12:12 98.2 91 18 136/79 (98) 96 06/06/17 08:04 98.2 92 18 146/84 (104) 98 06/06/17 08:00 Nasal Cannula 2.00 06/06/17 07:53 97 21 06/06/17 04:00 98.6 100 18 158/90 (112) 99 06/06/17 04:00 Nasal Cannula 2.00 06/06/17 03:48 100 06/06/17 01:25 98.9 107 18 151/82 98 06/06/17 01:25 Nasal Cannula 2.00 06/06/17 00:00 Nasal Cannula 2.00 06/06/17 00:00 98.6 97 20 149/84 (105) 100 06/05/17 23:49 99 06/05/17 23:26 98.3 101 20 147/89 97 06/05/17 23:00 Nasal Cannula 2.00 06/05/17 23:00 99.2 103 20 151/82 99 06/05/17 21:09 98.5 101 16 143/84 100 06/05/17 21:03 100 Nasal Cannula 2.00 06/05/17 20:51 98.8 104 18 150/86 99 06/05/17 20:00 98.9 100 18 147/75 (99) 100 06/05/17 20:00 Nasal Cannula 2.00 06/05/17 19:47 112 06/05/17 18:50 98.1 96 18 152/83 99 06/05/17 18:34 98.6 95 14 137/77 98 06/05/17 16:50 90 15 96 Room Air 06/05/17 16:45 97.8 92 15 134/70 (91) 100 Nasal Cannula 2 06/05/17 16:30 98.0 96 12 139/76 (97) 100 Nasal Cannula 3 06/05/17 14:30 98.6 93 20 156/81 98 06/05/17 14:14 98.9 95 18 154/84 97 2/11/18 13:30 98.4 99 18 174/75 98 I/O 06/05/17 06/05/17 06/05/17 06/06/17 06/06/17 06/06/17 07:00 15:00 23:00 07:00 15:00 23:00 Intake Total 1605 ml 1110 ml 1389 ml 2153 ml Output Total 1900 ml 500 ml 0 ml 2700 ml Balance -295 ml 610 ml 1389 ml -547 ml Intake Oral 320 ml 1120 ml IV Total 107 ml 100 ml 250 ml 710 ml Packed Cells 800 ml 400 ml 400 ml FFP 354 ml 610 ml 639 ml 323 ml Blood Product IV Normal Saline Flush 24 ml Other 100 ml Output Urine Total 1900 ml 500 ml 2700 ml Stool Total 0 ml # Voids 0 # Bowel Movements 3 0 Result Diagram: 06/06/17 0850 06/06/17 0850 Imaging Last Impressions Abdomen/Pelvis CT 06/03/17 1224 Signed Impressions: Service Date/Time: Saturday, June 03, 2017 14:59 - CONCLUSION: Rectal tube in place. Cannot exclude mass mid sigmoid colon seen best series 2 image 57; series 601 image 32 Stable ancillary findings as above. Morris Noyola MD FACR Objective Remarks GENERAL: NAD, awake and alert SKIN: No rashes, ecchymoses or lesions. Cool and dry. HEAD: Atraumatic. Normocephalic. No temporal or scalp tenderness. EYES: Pupils equal round and reactive. Extraocular motions intact. No scleral icterus. No injection or drainage. ENT: Nose without bleeding, purulent drainage or septal hematoma. Throat without erythema, tonsillar hypertrophy or exudate. Uvula midline. Airway patent. NECK: Trachea midline. No JVD or lymphadenopathy. Supple, nontender, no meningeal signs. CARDIOVASCULAR: Regular rate and rhythm without murmurs, gallops, or rubs. RESPIRATORY: Clear to auscultation. Breath sounds equal bilaterally. No wheezes , rales, or rhonchi. GASTROINTESTINAL: Abdomen soft, non-tender, nondistended. No hepato-splenomegaly , or palpable masses. No guarding. rectal tube with dark maroon stool. MUSCULOSKELETAL: Extremities without clubbing, cyanosis, or edema. No joint tenderness, effusion, or edema noted. No calf tenderness. Negative Homans sign bilaterally. NEUROLOGICAL: Awake and alert. Cranial nerves II through XII intact. Motor and sensory grossly within normal limits. Five out of 5 muscle strength in all muscle groups. Normal speech. Procedures Status post EGD and colonoscopy. Medications and IVs Current Medications Medications (Trade) Dose Ordered Sig/Phyllis Route Start Time Stop Time Status Last Admin Pantoprazole Sodium 80 mg/ Sodium Chloride 100 ml @ 10 mls/hr Q10H IV 06/03/17 12:18 06/06/17 12:39 Sodium Chloride 1,000 ml @ 100 mls/hr Q10H IV 06/03/17 16:01 06/06/17 11:04 (NS Flush) 2 ml UNSCH PRN IV FLUSH 06/03/17 16:15 (NS Flush) 2 ml BID IV FLUSH 06/03/17 21:00 (Tylenol) 650 mg Q4H PRN PO 06/03/17 16:15 06/05/17 21:35 (Zofran Inj) 4 mg Q6H PRN IVP 06/03/17 16:15 (Narcan Inj) 0.4 mg UNSCH PRN IV PUSH 06/03/17 16:15 (Senokot) 17.2 mg Q12H PRN PO 06/03/17 16:15 (Dulcolax Supp) 10 mg DAILY PRN RECTAL 06/03/17 16:15 (Lactulose Liq) 30 ml DAILY PRN PO 06/03/17 16:15 (NovoLOG SUPPLEMENTAL SCALE) 1 ACHS SLIDING SCALE SQ 06/03/17 17:00 06/04/17 17:56 (Tylenol) 650 mg Q4H PRN PO 06/03/17 19:15 06/03/17 20:37 (Benadryl) 25 mg Q4H PRN PO 06/03/17 19:15 06/03/17 20:37 (Carafate Liq) 1 gm ACHS PO 06/03/17 21:00 06/06/17 12:39 (Atrovent Neb) 0.5 mg Q4HR NEB NEB 06/03/17 20:00 06/06/17 11:48 (Mucinex Er) 600 mg BID PO 06/03/17 21:00 06/06/17 08:20 Miscellaneous Information ALL NURSING DEPARTME... UNSCH PRN .XX 06/05/17 16:45 06/06/17 16:44 Urinary Catheter: No A/P Problem List: (1) GI bleed ICD Code: K92.2 - Gastrointestinal hemorrhage, unspecified Plan: CT abdomen and pelvis shows possible sigmoid colon mass. The patient is status post transfusion of total of 4 units of packed red blood cells.. GI consulted and following -colonoscopy planned for tomorrow. Continue to hold warfarin and Plavix. 06/06 continue to hold warfarin and Plavix for now. Will resume once GI okay with it. The patient is status post colonoscopy which showed. Small hiatal hernia Diverticulosis Internal hemorrhoids No active bleeding Most likely cause of bleeding is diverticular bleed Advance diet to diabetic diet today. Case discussed with GI PA Quita Mckee. (2) Acute blood loss anemia ICD Code: D62 - Acute posthemorrhagic anemia Plan: The patient is actively bleeding. The patient status post infusion of a total of 4 units of packed red blood cells without any improvement on hemoglobin.3 units of FFP, INR today 1.6. I will transfuse another 2 units of FFP's. 06/06 the patient is status post transfusion of a total of 8 units of fresh frozen plasma with total reversal of INR to 1.1. Hemoglobin stable at 8.5. Continue to monitor hemoglobin every 12 hours. (3) Diarrhea ICD Code: R19.7 - Diarrhea, unspecified Plan: Diarrhea likely secondary to GI bleed. IV Flagyl discontinued. (4) Colonic mass ICD Code: K63.9 - Disease of intestine, unspecified Status: Acute Plan: The patient is a status post colonoscopy on June 04, 2017 with the following findings: Small hiatal hernia Diverticulosis Internal hemorrhoids No active bleeding Most likely cause of bleeding is diverticular bleed (5) RAF (acute kidney injury) ICD Code: N17.9 - Acute kidney failure, unspecified Plan: Likely secondary to prerenal azotemia secondary to dehydration due to blood loss. Creatinine on admission 1.69, trending down. 06/06 creatinine back to baseline at 1.1. Continue to monitor BUN/creatinine, monitor strict I's and O's, avoid nephrotoxins. (6) Diabetes mellitus with hyperglycemia ICD Code: E11.65 - Type 2 diabetes mellitus with hyperglycemia Plan: Blood sugar seems to be stable. Continue AzaSite with insulin NovoLog and continue to monitor Accu-Cheks. (7) HTN (hypertension) ICD Code: I10 - Essential (primary) hypertension Plan: Hold antihypertensive medications and monitor BP. If the patient becomes hypotensive we will treated with IV fluid boluses. 06/06 blood pressure seems to be stable. Will resume home medications if the patient becomes hypertensive. (8) H/O deep venous thrombosis ICD Code: Z86.718 - Personal history of other venous thrombosis and embolism Plan: Patient is on chronic articulation with Coumadin. Patient presented with a supratherapeutic INR with an elevated INR of 3.1. The patient is status post transfusion of multiple units of FFP secondary to life-threatening active GI bleed. 06/06 As per review of records, the patient had an IVC filter placed in 2005. An abdominal x-ray obtained on October 15, 2016 still showed his inferior vena cava filter. I will obtain abdominal x-ray to verify that the filter still in place. Given life-threatening GI bleed it is possible the patient could not be resumed on anticoagulation. (9) Atrial fibrillation ICD Code: I48.91 - Unspecified atrial fibrillation Plan: EKG on admission shows sinus rhythm with first-degree AV block. Patient now in sinus rhythm. Continue to hold anticoagulation On amiodarone. The patient has had several episodes of GI bleeding in the past, will resume anticoagulation once surgery clears. (10) Hyperlipidemia ICD Code: E78.5 - Hyperlipidemia, unspecified Plan: Hold statin while patient has active GI bleed. Resume once GI bleed resolves. (11) HTN (hypertension) ICD Code: I10 - Hypertension Status: Chronic Plan: Hold antihypertensive medications. Monitor vital signs. Blood pressure seems to be stable. Assessment and Plan DVT prophylaxis: SCDs, chemoprophylaxis contraindicated due to active GI bleeding. Discharge Planning Continue to monitor and the medical floor. Discharge pending clinical improvement and GI clearance. 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
[2017-06-06] MEDS ORDERED: POTASSIUM CHLORIDE 20 MEQ CONTROLLED RELEASE TAB PO ONE (15:00)
[2017-06-07] VITALS (7 sets, daily range): BP systolic 133–161; BP diastolic 72–96; PULSE 88–108; RESP 16–20; TEMP 98.2–99.6; O2SAT 96–99
[2017-06-07] MEDS: RESP: IPRATROPIUM 0.5 MG/2.5 ML NEB NEB SCH ×4 (00:03→12:08)
[2017-06-07] MEDS: SODIUM CHLOR 0.9% 1000 ML INJ 1,000 ML IV SCH (07:26)
[2017-06-07] MEDS: INSULIN ASPART SUPPLEMENTAL SCALE SQ SCH ×2 (08:00→12:04)
[2017-06-07] MEDS: SODIUM CHLORIDE 0.9% FLUSH 10 ML FLUSH IV FLUSH SCH (08:08)
[2017-06-07] MEDS: guaiFENesin E.R. 600 MG TAB PO SCH (08:10)
[2017-06-07] MEDS: SUCRALFATE 1 GM/10 ML CUP PO SCH ×3 (08:10→16:06)
[2017-06-07 10:20] LABS: HEMOGLOBIN 8.9 GM/DL (13.0-17.0); MEAN CELL VOLUME 87.9 FL (80.0-100.0); MEAN CORPUSCULAR HEMOGLOBIN 30.1 PG (27.0-34.0); MEAN CORPUSCULAR HGB CONC 34.3 % (32.0-36.0); MEAN PLATELET VOLUME 9.5 FL (7.0-11.0); PLATELET COUNT 171 TH/MM3 (150-450); RED BLOOD COUNT 2.96 MIL/MM3 (4.50-5.90); RED CELL DISTRIBUTION WIDTH 15.4 % (11.6-17.2)
[2017-06-07 10:45] LABS: BICARBONATE 28.3 MEQ/L (21.0-32.0); CALCIUM 8.9 MG/DL (8.5-10.1); CREATININE 1.11 MG/DL (0.60-1.30)
[2017-06-07] MEDS: PANTOPRAZOLE INJ 80 MG in SODIUM CHLORIDE 0.9% INJ 100 ML IV SCH (11:00)
[2017-06-07] MEDS ORDERED: CLOPIDOGREL 75 MG TAB PO SCH (13:15)
--- NOTE | 2017-06-07 13:44 | HHI.DCPOC ---
Discharge Care Plan Diagnosis: (1) GI bleed (2) RAF (acute kidney injury) (3) HTN (hypertension) (4) Hyperlipidemia (5) Diarrhea (6) Acute blood loss anemia (7) H/O deep venous thrombosis (8) Atrial fibrillation Goals to Promote Your Health * To prevent worsening of your condition and complications * To maintain your health at the optimal level Directions to Meet Your Goals Take your medications as prescribed Follow your dietary instruction Follow activity as directed Keep your appointments as scheduled Take your immunizations and boosters as scheduled If your symptoms worsen call your PCP, if no PCP go to Urgent Care Center or Emergency Room Smoking is Dangerous to Your Health. Avoid second hand smoke Call the 24-hour hour crisis hotline for domestic abuse at Bubba Martini MD Jun 07, 2017 13:44
[2017-06-07] MEDS ORDERED: WARFARIN SOD 5 MG TAB PO SCH (16:00)
== END 2017-06-07 16:20 | DRG 378 ==
LOC: NEPC 12:07 → NEDA 16:08 → N04A 18:26
PROVIDERS: ADMIT Hospitalist; ATTEND Hospitalist
PROC: 30233K1 Transfusion of Nonautologous Frozen Plasma into Peripheral Vein, Percutaneous Approach (ICD-10-PCS; 2017-06-03)
PROC: 30233N1 Transfusion of Nonautologous Red Blood Cells into Peripheral Vein, Percutaneous Approach (ICD-10-PCS; 2017-06-04)
PROC: 0DJ08ZZ Inspection of Upper Intestinal Tract, Via Natural or Artificial Opening Endoscopic (ICD-10-PCS; principal; 2017-06-05 15:41)
PROC: 0DJD8ZZ Inspection of Lower Intestinal Tract, Via Natural or Artificial Opening Endoscopic (ICD-10-PCS; 2017-06-05 15:41)
DX: K57.31 Diverticulosis of large intestine without perforation or abscess with bleeding (principal); I13.0 Hypertensive heart and chronic kidney disease with heart failure and stage 1 through stage 4 chronic kidney disease, or unspecified chronic kidney disease; N18.9 Chronic kidney disease, unspecified; I50.9 Heart failure, unspecified; N17.9 Acute kidney failure, unspecified; D68.32 Hemorrhagic disorder due to extrinsic circulating anticoagulants; D62 Acute posthemorrhagic anemia; E11.22 Type 2 diabetes mellitus with diabetic chronic kidney disease; E11.65 Type 2 diabetes mellitus with hyperglycemia; Z79.4 Long term (current) use of insulin; I48.91 Unspecified atrial fibrillation; Z86.718 Personal history of other venous thrombosis and embolism; Z79.01 Long term (current) use of anticoagulants; E86.0 Dehydration; J44.9 Chronic obstructive pulmonary disease, unspecified; K64.8 Other hemorrhoids; K44.9 Diaphragmatic hernia without obstruction or gangrene; K29.70 Gastritis, unspecified, without bleeding; K20.9 Esophagitis, unspecified; E87.6 Hypokalemia; Z87.891 Personal history of nicotine dependence; E78.5 Hyperlipidemia, unspecified
CPT/HCPCS: 36430; 74177; 80048; 80053; 80061; 81001; 82550; 82552; 82948; 83036; 83735; 84100; 84439; 84443; 84484; 85014; 85018; 85025; 85027; 85610; 85730; 86850; 86900; 86901; 86920; 86927; 87040; 87493; 93005; 94150; 94640; 94664; 96365; 96366; C9113; J1815; J1940; J2405; J3430; J7030; J7050; J7644; P9016; P9017; Q9967